=== PATIENT | female | born 1935 | race Caucasian/White ===

== ENCOUNTER → 2016-12-25 | Outpatient (CLI) | payer BC ==
[~2016-12-25] MED LIST: ACET-1256 PO; ASPI81TA28 PO; ATOR-24 PO; CALC500C70 PO; CLB/200 PO; CLTP PO; LOSA100T33; LVS125 PO; METAMUCIL PO; MIRA100T PO; MULT-506 PO; PANT40TA PO; PSYL0.524 PO; TRAM-10 PO; TRIA0.1C20 TOP; ZNTT/150 PO
--- NOTE | 2016-12-25 12:09 | DIAGNOSTIC IMAGING REPORT ---
UPPER GI SERIES AND BARIUM SWALLOW CLINICAL HISTORY: Epigastric pain, nausea and vomiting. Reflux. COMPARISON STUDY: Upper GI series and small bowel follow-through January 17, 2016. FLUOROSCOPY TIME: 2.5 minutes. FINDINGS: 33 fluoroscopic images were obtained. Mild esophageal dysmotility was noted. No esophageal mass or stricture was identified. A 13 mm barium tablet passed into the stomach. Mild gastric thickening is similar to prior exam of January 17, 2016. No reflux was elicited. No hiatal hernia was identified. A diverticulum of the second portion the duodenum was noted. There are cholecystectomy clips. IMPRESSION: 1. Mild esophageal dysmotility. 2. No change in mild gastric fold thickening since exam of January 17, 2016. 3. No esophageal mass or stricture. Electronically signed by: Vimal Robertson M.D. 12/25/2016 12:08 PM Dictated Date/Time: 12/25/2016 12:06 PM
== END | disposition home or self-care (01) ==
LOC: C.RAD 11:01
PROVIDERS: ATTEND Physician Assistant
DX: K21.9 Gastro-esophageal reflux disease without esophagitis (principal); K30 Functional dyspepsia

== ENCOUNTER → 2017-02-26 | Outpatient (CLI) | payer BC ==
[2017-02-26 10:12] LABS: BASO % 0.4 %; BASO ABS # 0.03 K/uL (0-0.2); COMPLETE YES; HEMATOCRIT 43.3 % (37-47); IG% 0.3 %; LYMPH % 21.1 %; LYMPH ABS # 1.68 K/uL (1.2-3.4); MEAN CELL VOLUME 90.2 fL (80-100); MEAN CORPUSCULAR HEMOGLOBIN 30.2 pg (25-34); MEAN CORPUSCULAR HGB CONC 33.5 g/dl (32-36); MEAN PLATELET VOLUME 11.6 fL (7.4-10.4); NEUT % 69.2 %; PLATELET COUNT 250 K/uL (130-400); WHITE BLOOD COUNT 7.97 K/uL (4.8-10.8)
[2017-02-26 10:47] LABS: CALCIUM 9.6 mg/dl (8.5-10.1)
[2017-02-26 10:53] LABS: ALT/SGPT 21 U/L (12-78); AST/SGOT 12 U/L (15-37); BLOOD UREA NITROGEN 18 mg/dl (7-18); BUN/CREATININE RATIO 16.3 (10-20); CARBON DIOXIDE 31 mmol/L (21-32); CHLORIDE 102 mmol/L (98-107); CHOLESTEROL 133 mg/dl (0-200); GLUCOSE 97 mg/dl (70-99); POTASSIUM 3.6 mmol/L (3.5-5.1); SODIUM 140 mmol/L (136-145); TRIGLYCERIDES 136 mg/dl (0-150); VERY LOW DENSITY LIPOPROT CALC 27 mg/dl
[2017-02-26 11:01] LABS: ESTIMATED AVERAGE GLUCOSE 117 mg/dl; HA1C FLAG Normal (Normal)
[2017-02-26 11:04] LABS: CHOLESTEROL/HDL RATIO 2.5; HDL CHOLESTEROL 53 mg/dl; LDL CHOLESTEROL CALCULATED 53 mg/dl
--- NOTE | 2017-03-04 12:18 | CODING QUERY MEDICAL NECESSITY ---
SUPPORTING DIAGNOSIS NEEDED A supporting diagnosis is required for the test/procedure performed on this patient in order for us to be reimbursed by the patient's insurance. Please provide a supporting diagnosis for the following test/procedure listed below next to the test name along with your signature. *If there is no additional diagnosis for this patient that would support the following test/procedure please document that below next to the test/procedure. Test(s)/Procedure(s) that require a supporting diagnosis: * HEMOGLOBIN A1C DIAGNOSIS: Provider Signature: Date: Thank you Toshia Martinez [employer] Once completed, please kindly fax back to [phone] For questions please call [phone]
== END | disposition home or self-care (01) ==
LOC: C.LAB1850 08:57
PROVIDERS: ATTEND Internal Medicine
DX: E78.00 Pure hypercholesterolemia, unspecified (principal); R73.9 Hyperglycemia, unspecified

== ENCOUNTER → 2017-03-08 | Outpatient (CLI) | payer BC ==
[~2017-03-08] MED LIST changes: -ACET-1256 PO; -CLTP PO; -LVS125 PO; -METAMUCIL PO; -TRAM-10 PO
--- NOTE | 2017-03-09 08:02 | MAMMOGRAPHY REPORT ---
BILATERAL DIGITAL SCREENING MAMMOGRAM TOMOSYNTHESIS WITH CAD: 03/08/2017 CLINICAL HISTORY: Asymptomatic. Personal history of breast cancer. TECHNIQUE: Breast tomosynthesis in addition to standard 2D mammography was performed. Current study was also evaluated with a Computer Aided Detection (CAD) system. COMPARISON: Comparison is made to exams dated: 06/19/2016 mammogram, 06/15/2016 mammogram, 06/15/2016 u ltrasound, 03/12/2016 ultrasound, 03/12/2016 mammogram, and 03/05/2016 mammogram - [facility]. BREAST COMPOSITION: The tissue of both breasts is heterogeneously dense, which may obscure small mas ses. FINDINGS: There is expected architectural distortion in the 12:00 posterior right breast, at the sit e of prior lumpectomy. There are diffuse bilateral benign-appearing rodlike, coarse and punctate chapo rocalcifications. A stable ribbon shaped metallic biopsy marker in the 12:00 to 1:00 anterior left b reast. No new suspicious mass, architectural distortion or cluster of microcalcifications is seen. IMPRESSION: ACR BI-RADS CATEGORY 1: NEGATIVE There is no mammographic evidence of malignancy. A 1 year screening mammogram is recommended. The pa tient will receive written notification of the results. Approximately 10% of breast cancers are not detected with mammography. A negative mammographic report should not delay biopsy if a clinically suggestive mass is present. Lidia Ernst M.D. ay/:03/08/2017 16:53:[address] Clerk: Jessica MENEZES)([place]), [facility] letter sent: Normal 1/2 BI-RADS Code: ACR BI-RADS Category 1: Negative
== END ==
LOC: C.MAMM 10:29
PROVIDERS: ATTEND Obstetrics & Gynecology
DX: Z12.31 Encounter for screening mammogram for malignant neoplasm of breast (principal); Z85.3 Personal history of malignant neoplasm of breast

== ENCOUNTER → 2017-03-11 | Day surgery (SDC) | payer BC ==
[2017-03-04 14:02] VITALS: BMI 37.0
[~2017-03-11] VITALS: Ht 162.6 cm; Wt 99.5 kg
[~2017-03-11] MED LIST changes: +LIDOCAINE HCL 2% 2 ML VIAL (20MG/ML) ONE; +PROPOFOL IV EMULSION 10 MG/ML 20 ML VIAL IV ONE; +SODIUM CHLORIDE 0.9% 500ML 500 ML IV ONE
[2017-03-11 14:26] VITALS: Ht 162.6 cm; Wt 99.5 kg
--- NOTE | 2017-03-11 14:49 | Endo History and Physical ---
History & Physical Date of Service: Mar 11, 2017. Chief Complaint: DYSPHAGIA Referring Physician: DR Germania MCCLELLAN History of Present Illness 81 yo CF who presents for EGD secondary to dysphagia. Past Medical History Arthritis, Reflux, Cancer, High Cholesterol, Hypertension Past Surgical History Hx Cardiac Surgery: No Hx Internal Defibrillator: No Hx Pacemaker: No Hx Abdominal Surgery: Yes (D&C AND HYSTEROSCOPY, TUBAL LIGATION, ROSA) Hx of Implantable Prosthesis: No Hx Post-Op Nausea and Vomiting: Yes Hx Cancer Surgery: Yes (R BREAST LUMPECTOMY, KAYODE BSO AND LYMPH NODE REMOVAL) Hx Thoracic Surgery: No Hx Orthopedic: Yes (RT/LEFT TKA, LAMINECTOMY AND FACETECTOMY, RT/LEFT CTR) Hx Urinary Tract Surgery: Yes (ANAL FISTULA REPAIR) Family History None, Esophogeal CA Social History Smoking Status: Never Smoker Hx Substance Use: No Hx Alcohol Use: No Allergies Coded Allergies: Omeprazole (Verified Allergy, Intermediate, RASH , 03/11/17) Adhesives (Verified Allergy, Unknown, RASH, 03/11/17) Erythromycin (Unverified Allergy, Unknown, PER PCP NOTE- ?REACTION, ) Penicillins (Verified Allergy, Unknown, RASH / LYMPHADENOPATHY, 03/11/17) Current Medications Reported Home Medications Medications Dose Route/Sig Max Daily Dose Days Date Category Dose Instructions Metamucil (Psyllium) 0.52 Gm Cap 2 Cap PO DAILY AT LUNCH 03/04/17 Reported Zantac (Ranitidine HCl) 150 Mg Tab 150 Mg PO HS 03/04/17 Reported CeleBREX (Celecoxib) 200 Mg Cap 200 Mg PO BID 03/04/17 Reported Aristocort 0.1% (Triamcinolone Acetonide) Cr 1 Dose TOP PRN 01/15/16 Reported Myrbetriq Er (Mirabegron) 25 Mg Tab 25 Mg PO QPM 11/14/15 Reported Aspirin Ec (Aspirin) 81 Mg Tab 81 Mg PO QAM 10/14/15 Reported Multivitamin (Multivitamins) Tab 1 Tab PO QAM 03/21/14 Reported Losartan Potassium/Hydroc (Losartan Potassium & Hydrochlo) 1 Tab Tab 1 Tab QAM 12/11/12 Reported DOSE OF 100/25MG Protonix (Pantoprazole Sodium) 40 Mg Tab 40 Mg PO BID 10/22/08 Reported Lipitor (Atorvastatin Calcium) 40 Mg Tab 40 Mg PO QPM 10/22/08 Reported Vital Signs Weight (Kilograms): 99.55 Height (Feet): 5 Height (Inches): 4 Date Time Temp Pulse Resp B/P (MAP) Pulse Ox O2 Delivery O2 Flow Rate FiO2 03/11/17 14:34 36.9 77 20 180/59 (99) 94 Room Air Physical Exam General Appearance: WD/WN, no apparent distress Respiratory/Chest: Auscultation: breath sounds normal Cardiovascular: Heart Auscultation: RRR Abdomen: Bowel Sounds: normal Inspection & Palpation: soft, non-distended, no tenderness, guarding & rebound Assessment and Plan Assessment: 81 yo CF who presents for EGD secondary to dysphagia. Plan: Proceed with EGD.
--- NOTE | 2017-03-11 15:38 | GI REPORT ---
Procedure Date: 03/11/2017 3:14 PM Procedure: Upper GI endoscopy Indications: Dysphagia Medicines: Monitored Anesthesia Care Complications: No immediate complications. Estimated Blood Loss: Estimated blood loss: none. Procedure: Pre-Anesthesia Assessment: - Prior to the procedure, a History and Physical was performed, and patient medications and allergies were reviewed. The patient's tolerance of previous anesthesia was also reviewed. The risks and benefits of the procedure and the sedation options and risks were discussed with the patient. All questions were answered, and informed consent was obtained. Prior Anticoagulants: The patient has taken aspirin, last dose was 1 day prior to procedure. ASA Grade Assessment: II - A patient with mild systemic disease. After reviewing the risks and benefits, the patient was deemed in satisfactory condition to undergo the procedure. After obtaining informed consent, the endoscope was passed under direct vision. Throughout the procedure, the patient's blood pressure, pulse, and oxygen saturations were monitored continuously. The scope was introduced through the mouth, and advanced to the second part of duodenum. The upper GI endoscopy was accomplished without difficulty. The patient tolerated the procedure well. Findings: One mild benign-appearing, intrinsic stenosis was found. This measured 1.6 cm (inner diameter) x less than one cm (in length) and was traversed. A TTS dilator was passed through the scope. Dilation with an 18-19-20 mm balloon (to a maximum balloon size of 20 mm) dilator was performed. The dilation site was examined following endoscope reinsertion and showed no change. A small hiatus hernia was present. The examined duodenum was normal. Impression: - Benign-appearing esophageal stenosis. Dilated. - Small hiatus hernia. - Normal examined duodenum. - No specimens collected. Recommendation: - Resume previous diet. - Continue present medications. - Repeat the upper endoscopy PRN for retreatment. - Return to primary care physician as previously scheduled. Jean-Pierre Alexandra DO 03/11/2017 3:38:10 PM This report has been signed electronically. Note Initiated On: 03/11/2017 3:14 PM I attest to the content of the Intraoperative Record and orders documented therein, exceptions below
--- NOTE | 2017-03-11 15:51 | Anesthesiology Progress Note ---
Anesthesia Post Op Note Date & Time Mar 11, 2017 at 15:50 Vital Signs Pain Intensity: 2 Vital Signs Past 12 Hours Date Time Temp Pulse Resp B/P (MAP) Pulse Ox O2 Delivery O2 Flow Rate FiO2 03/11/17 15:42 69 16 164/61 (95) 96 Room Air 03/11/17 15:27 72 16 133/67 (89) 95 Room Air 03/11/17 14:34 36.9 77 20 180/59 (99) 94 Room Air Notes Mental Status: alert / awake / arousable, participated in evaluation Pt Amnestic to Procedure: Yes Nausea / Vomiting: adequately controlled Pain: adequately controlled Airway Patency, RR, SpO2: stable & adequate BP & HR: stable & adequate Hydration State: stable & adequate Anesthetic Complications: no major complications apparent
--- NOTE | 2017-03-11 15:56 | Discharge Instructions ---
Endoscopy Patient Instructions Date / Procedure(s) Performed Mar 11, 2017. EGD Allergy Information Coded Allergies: Omeprazole (Verified Allergy, Intermediate, RASH , 03/11/17) Adhesives (Verified Allergy, Unknown, RASH, 03/11/17) Erythromycin (Unverified Allergy, Unknown, PER PCP NOTE- ?REACTION, ) Penicillins (Verified Allergy, Unknown, RASH / LYMPHADENOPATHY, 03/11/17) Discharge Date / Findings Mar 11, 2017. Esophageal stricture s/p dilation Hiatal hernia Medication Instructions OK to resume all medications today as prescribed. Reported Home Medications Medications Dose Route/Sig Max Daily Dose Days Date Category Dose Instructions Metamucil (Psyllium) 0.52 Gm Cap 2 Cap PO DAILY AT LUNCH 03/04/17 Reported Zantac (Ranitidine HCl) 150 Mg Tab 150 Mg PO HS 03/04/17 Reported CeleBREX (Celecoxib) 200 Mg Cap 200 Mg PO BID 03/04/17 Reported Aristocort 0.1% (Triamcinolone Acetonide) Cr 1 Dose TOP PRN 01/15/16 Reported Myrbetriq Er (Mirabegron) 25 Mg Tab 25 Mg PO QPM 11/14/15 Reported Aspirin Ec (Aspirin) 81 Mg Tab 81 Mg PO QAM 10/14/15 Reported Multivitamin (Multivitamins) Tab 1 Tab PO QAM 03/21/14 Reported Losartan Potassium/Hydroc (Losartan Potassium & Hydrochlo) 1 Tab Tab 1 Tab QAM 12/11/12 Reported DOSE OF 100/25MG Protonix (Pantoprazole Sodium) 40 Mg Tab 40 Mg PO BID 10/22/08 Reported Lipitor (Atorvastatin Calcium) 40 Mg Tab 40 Mg PO QPM 10/22/08 Reported Provider Instructions Activity Restrictions - No exercising or heavy lifting for 24 hours. - Do not drink alcohol the day of the procedure. - Do not drive a car or operate machinery until the day after the procedure. - Do not make any important decisions or sign important papers in 24 hours after the procedure. Following Day: - Return to full activity which may include returning to work/school. Diet Start your diet with liquids and light foods (jello, soup, juice, toast). Then eat your usual diet if not nauseated. Treatment For Common After Affects For mild abdominal pain, bloating, or excessive gas: - Rest - Eat lightly - Lie on right side Follow-Up Information Follow-up with DR Germania MCCLELLAN as scheduled Anesthesia Information What You Should Know You have had a procedure that required some medicine to reduce anxiety and discomfort. This treatment is called moderate sedation. After receiving the treatment, you may be sleepy, but you will be able to breathe on your own. The effects of the treatment may last for several hours. Follow these instructions along with Activity/Diet recommendations noted above: * Do NOT do anything where dizziness or clumsiness would be dangerous. * Rest quietly at home today, then you can be up and about tomorrow. * Have a responsible person stay with you the rest of today. * You may have had an I.V. today. If so, you may take the dressing off later today. Recommendations Call your doctor if: * Trouble breathing * Continuous vomiting for more than 24 hours * Temperature above 101 degrees * Severe abdominal pain or bloating * Pain not relieved by pain medicine ordered * There is increased drainage or redness from any incision * A large amount of rectal bleeding greater than 2-3 tablespoons. (If you had a polyp/s removed or have hemorrhoids, a small amount of blood - from the rectum is to be expected.) * You have any unanswered questions or concerns. IN THE EVENT OF A SERIOUS EMERGENCY, GO TO THE NEAREST EMERGENCY ROOM Your discharge instructions were prepared by provider Jean-Pierre Alexandra. Patient Instructions Signature Page Karine Aranda Patient (or Guardian) Signature/Date: I have read and understand the instructions given to me by my caregivers. Caregiver/RN/Doctor Signature/Date: The above-named patient and/or guardian has received patient instructions on this date. + Original Patient Signature Page (only) stays with chart. Please make copy for patient.
[2017-03-11 15:57] VITALS: BP 145/65; PULSE 67; O2SAT 97
== END | disposition home or self-care (01) ==
LOC: C.GI 14:15
PROVIDERS: ATTEND Internal Medicine
DX: K22.2 Esophageal obstruction (principal); K44.9 Diaphragmatic hernia without obstruction or gangrene; K21.9 Gastro-esophageal reflux disease without esophagitis; I10 Essential (primary) hypertension; E78.00 Pure hypercholesterolemia, unspecified; Z80.0 Family history of malignant neoplasm of digestive organs; Z79.82 Long term (current) use of aspirin; Z79.899 Other long term (current) drug therapy

== ENCOUNTER → 2017-03-31 | Outpatient (CLI) | payer BC ==
[~2017-03-31] MED LIST changes: -LIDOCAINE HCL 2% 2 ML VIAL (20MG/ML) ONE; +LOSA100T26; -LOSA100T33; -PROPOFOL IV EMULSION 10 MG/ML 20 ML VIAL IV ONE; -SODIUM CHLORIDE 0.9% 500ML 500 ML IV ONE
--- NOTE | 2017-03-31 11:54 | DIAGNOSTIC IMAGING REPORT ---
LUMBAR SPINE W/O CONTRAST CLINICAL HISTORY: 81 year-old Female presenting with CERVICAL DISORDER,CHRONIC NECK PAIN, status post lumbar surgery. TECHNIQUE: Multisequence, multiplanar MR imaging of the lumbar spine was performed without the use of intravenous contrast. COMPARISON: 11/25/2015. FINDINGS: There has been interval laminectomies of L3-4. 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 Mild vertebral body height loss of L4. T1 hyperintense, T2 hyperintense round lesion in the L5 vertebral body indicative of benign hemangioma. Additionally, T2 hyperintense, T1 hypointense bone marrow signal intensity changes of the endplates at L3-4 (Modic type I), new since 2016. Intervertebral disc height loss most severely at L4-5 and to a lesser extent at L3-4, unchanged. 7 mm of grade 1 anterolisthesis of L3 on L4. This has progressed since the prior exam in 2015. T12-L1: Normal. L1-2: Normal. L2-3: Disc bulge with left greater than right eccentric mass effect on the neural foramina. In combination with mild thickening of the ligamentum flavum, mild bilateral neural foraminal narrowing results. Only mild effacement of the ventral thecal sac noted. L3-4: Anterolisthesis of L3 on L4 and resultant disc bulge has progressed since the prior exam. Significant facet hypertrophy. Persistent near complete effacement of the CSF at this level. The buckled appearance of the cauda equina is not significantly changed from the prior exam. Interval decompression of the posterior spinal canal at this level although the thecal sac is not expanded. There is also severe bilateral neural foraminal narrowing impacting the exiting L3 nerve roots. L4-5: Mild disc bulge with facet hypertrophy results in moderate bilateral neural foraminal narrowing impacting the exiting L4 nerve roots. L5-S1: Mild disc bulge and facet hypertrophy cause mild bilateral neural foraminal narrowing. The spinal cord ends in good position at the inferior endplate of L1. As mentioned, the cauda equina has a buckled appearance, which would raise concern for impingement although posterior decompression has been performed in the interval. Paraspinal soft tissues are normal. Surgical scar in the posterior soft tissues of the lumbar region. No associated fluid collection. IMPRESSION: 1. Post surgical changes of L3-4 laminectomies. Progression of anterolisthesis of L3 on L4 with associated degenerative changes. The stenotic appearance of the spinal canal at this level has not significantly changed with persistent buckling of the cauda equina despite decompression. 2. Severe bilateral neural foraminal narrowing at L3-4 and moderate neural foraminal narrowing at L4-5 with additional levels of neural foraminal narrowing as described above. Electronically signed by: Janes Hendrickson 03/31/2017 11:53 AM Dictated Date/Time: 03/31/2017 11:28 AM
== END | disposition home or self-care (01) ==
LOC: C.MRI 09:50
PROVIDERS: ATTEND Neurological Surgery
DX: M54.5 Low back pain (principal); M43.16 Spondylolisthesis, lumbar region

== ENCOUNTER → 2017-09-01 | Outpatient (CLI) | payer BC ==
[~2017-09-01] MED LIST changes: -LOSA100T26; +LOSA100T33
[2017-09-01 09:31] LABS: BASO % 0.2 %; BASO ABS # 0.02 K/uL (0-0.2); COMPLETE YES; EOS % 2.2 %; HEMATOCRIT 42.3 % (37-47); IG% 0.2 %; MEAN CELL VOLUME 89.6 fL (80-100); MEAN CORPUSCULAR HEMOGLOBIN 30.1 pg (25-34); MEAN CORPUSCULAR HGB CONC 33.6 g/dl (32-36); MONO % 7.3 %; NEUT % 69.1 %; PLATELET COUNT 247 K/uL (130-400); RED BLOOD COUNT 4.72 M/uL (4.2-5.4); WHITE BLOOD COUNT 9.03 K/uL (4.8-10.8)
[2017-09-01 09:47] LABS: ESTIMATED AVERAGE GLUCOSE 123 mg/dl; HA1C FLAG Normal (Normal)
[2017-09-01 09:58] LABS: ALT/SGPT 21 U/L (12-78); AST/SGOT 14 U/L (15-37); BLOOD UREA NITROGEN 16 mg/dl (7-18); BUN/CREATININE RATIO 13.9 (10-20); CALCIUM 9.2 mg/dl (8.5-10.1); CARBON DIOXIDE 30 mmol/L (21-32); CHLORIDE 103 mmol/L (98-107); CHOLESTEROL 126 mg/dl (0-200); CREATININE 1.14 mg/dl (0.60-1.20); GLUCOSE 104 mg/dl (70-99); POTASSIUM 3.7 mmol/L (3.5-5.1); SODIUM 140 mmol/L (136-145)
[2017-09-01 10:08] LABS: CHOLESTEROL/HDL RATIO 2.3; HDL CHOLESTEROL 56 mg/dl; LDL CHOLESTEROL CALCULATED 34 mg/dl; TRIGLYCERIDES 178 mg/dl (0-150); VERY LOW DENSITY LIPOPROT CALC 36 mg/dl
== END | disposition home or self-care (01) ==
LOC: C.LAB1850 08:46
PROVIDERS: ATTEND Internal Medicine
DX: E78.00 Pure hypercholesterolemia, unspecified (principal)

== ENCOUNTER 2018-01-06 08:55 | Emergency (ER) | payer BC ==
[~2018-01-06] VITALS: Ht 162.6 cm; Wt 96.0 kg
[~2018-01-06 08:55] MED LIST changes: -ATOR-24 PO; -PSYL0.524 PO; +RANI150T85 PO; -ZNTT/150 PO
[2018-01-06 08:56] VITALS: TEMP 36.5; Ht 162.6 cm; Wt 96.0 kg
[2018-01-06] MEDS ORDERED: ESCI10TA17 PO (09:12)
[2018-01-06 10:01] LABS: BASO % 0.2 %; BASO ABS # 0.02 K/uL (0-0.2); EOS % 0.5 %; EOS ABS # 0.05 K/uL (0-0.5); HEMOGLOBIN 14.1 g/dL (12.0-16.0); IG# 0.02 K/uL (0.00-0.02); LYMPH % 9.7 %; LYMPH ABS # 0.89 K/uL (1.2-3.4); MEAN CELL VOLUME 87.8 fL (80-100); MEAN CORPUSCULAR HEMOGLOBIN 30.2 pg (25-34); MEAN CORPUSCULAR HGB CONC 34.4 g/dl (32-36); MEAN PLATELET VOLUME 10.5 fL (7.4-10.4); MONO % 5.9 %; MONO ABS # 0.54 K/uL (0.11-0.59); NEUT % 83.5 %; NEUT ABS # 7.68 K/uL (1.4-6.5); PLATELET COUNT 237 K/uL (130-400); RED CELL DISTRIBUTION WIDTH CV 12.9 % (11.5-14.5); RED CELL DISTRIBUTION WIDTH SD 41.1 fL (36.4-46.3)
[2018-01-06 10:17] LABS: ALBUMIN 3.5 gm/dl (3.4-5.0); CALCIUM 9.4 mg/dl (8.5-10.1); CREATININE 1.36 mg/dl (0.60-1.20); POTASSIUM 4.1 mmol/L (3.5-5.1)
[2018-01-06 10:20] LABS: TOTAL PROTEIN 7.3 gm/dl (6.4-8.2)
[2018-01-06 11:06] VITALS: BP 171/70; PULSE 62; O2SAT 95
[2018-01-06] MEDS ORDERED: ATOR-24 PO (11:24)
[2018-01-06] MEDS ORDERED: PSYL0.524 PO (14:01)
--- NOTE | 2018-01-06 16:04 | EMERGENCY ROOM VISIT NOTE ---
History Report prepared by Amnada: Chad Mauro Under the Supervision of: Dr. Devon Powell D.O. First contact with patient: 09:34 Chief Complaint: URINARY SYMPTOMS Stated Complaint: UNABLE TO URINATE History of Present Illness The patient is an 82 year old female who presents to the Emergency Room with complaints of constant urinary retention that the patient noticed through the night last night. The patient states that she is normally incontinent of her urine and will usually go through 1-2 large pads at night. The patient states that when she woke up this morning her pad was dry. She attempted to use the restroom but could only "push out a couple of drops." She denies any burning with urinating or abdominal pain recently. She also denies any nausea or vomiting. The patient did make note that her stools were a little loose this morning, so she took an Imodium. She denies any other change in vision, fevers, chest pain, shortness of breath, and melena. Source of History: patient Onset: Last night Position: other () Quality: other (Urinary Retention) Timing: constant Associated Symptoms: + vomiting, No nausea, No abdominal pain Review of Systems See HPI for pertinent positives & negatives. A total of 10 systems reviewed and were otherwise negative. Past Medical & Surgical Medical Problems: (1) Lumbar stenosis with neurogenic claudication Family History Omitted Secondary to Age. Social History Smoking Status: Never Smoker Marital Status: Housing Status: lives with significant other Occupation Status: retired Current/Historical Medications Scheduled Aspirin (Aspirin Ec), 81 MG PO QAM Atorvastatin (Lipitor), 40 MG PO QPM Calcium/Vitamin D (Os-Brijesh 500 Plus D), 1 TAB PO QAM Celecoxib (CeleBREX), 200 MG PO BID Escitalopram (Lexapro), 10 MG PO DAILY Hctz/Losartan (Hyzaar 12.5MG/100MG), 1 TAB QAM Multivitamin (Multivitamin), 1 TAB PO QAM Pantoprazole (Protonix), 40 MG PO BID Psyllium (Metamucil), 2 CAP PO DAILY AT LUNCH Ranitidine (Zantac), 150 MG PO HS Triamcinolone Acet 0.1% (Aristocort 0.1%), 1 DOSE TOP PRN Allergies Coded Allergies: Omeprazole (Verified Allergy, Intermediate, RASH , 03/11/17) Adhesives (Verified Allergy, Unknown, RASH, 03/11/17) Erythromycin (Unverified Allergy, Unknown, PER PCP NOTE- ?REACTION, ) Penicillins (Verified Allergy, Unknown, RASH / LYMPHADENOPATHY, 03/11/17) Physical Exam Vital Signs Date Time Temp Pulse Resp B/P (MAP) Pulse Ox O2 Delivery O2 Flow Rate FiO2 01/06/18 11:06 62 18 171/70 95 Room Air 01/06/18 08:56 36.5 70 17 206/82 94 Room Air Physical Exam GENERAL: Sitting up in bed, alert, well appearing, well nourished, no distress, non-toxic EYE EXAM: normal conjunctiva. OROPHARYNX: no exudate, no erythema, lips, buccal mucosa, and tongue normal and mucous membranes are moist NECK: supple, no nuchal rigidity, no adenopathy, non-tender LUNGS: Clear to auscultation. Normal chest wall mechanics HEART: no murmurs, S1 normal and S2 normal ABDOMEN: abdomen soft, non-tender, normo-active bowel sounds, no masses, no rebound or guarding. BACK: Back is symmetrical on inspection and there is no deformity, no midline tenderness, no CVA tenderness. SKIN: no rashes and no bruising UPPER EXTREMITIES: upper extremities are grossly normal. LOWER EXTREMITIES: No pitting edema. NEURO EXAM: Normal sensorium, cranial nerves II-XII grossly intact, normal speech, no gross weakness of arms, no gross weakness of legs. Medical Decision & Procedures Laboratory Results 01/06/18 09:50 Red Blood Count 4.67, Mean Corpuscular Volume 87.8, Mean Corpuscular Hemoglobin 30.2, Mean Corpuscular Hemoglobin Concent 34.4, Mean Platelet Volume 10.5, Neutrophils (%) (Auto) 83.5, Lymphocytes (%) (Auto) 9.7, Monocytes (%) (Auto) 5.9, Eosinophils (%) (Auto) 0.5, Basophils (%) (Auto) 0.2, Neutrophils # (Auto) 7.68, Lymphocytes # (Auto) 0.89, Monocytes # (Auto) 0.54, Eosinophils # (Auto) 0.05, Basophils # (Auto) 0.02 01/06/18 09:50 Test 01/06/18 09:50 01/06/18 10:44 White Blood Count 9.20 K/uL (4.8-10.8) Red Blood Count 4.67 M/uL (4.2-5.4) Hemoglobin 14.1 g/dL (12.0-16.0) Hematocrit 41.0 % (37-47) Mean Corpuscular Volume 87.8 fL (80-100) Mean Corpuscular Hemoglobin 30.2 pg (25-34) Mean Corpuscular Hemoglobin Concent 34.4 g/dl (32-36) Platelet Count 237 K/uL (130-400) Mean Platelet Volume 10.5 fL (7.4-10.4) Neutrophils (%) (Auto) 83.5 % Lymphocytes (%) (Auto) 9.7 % Monocytes (%) (Auto) 5.9 % Eosinophils (%) (Auto) 0.5 % Basophils (%) (Auto) 0.2 % Neutrophils # (Auto) 7.68 K/uL (1.4-6.5) Lymphocytes # (Auto) 0.89 K/uL (1.2-3.4) Monocytes # (Auto) 0.54 K/uL (0.11-0.59) Eosinophils # (Auto) 0.05 K/uL (0-0.5) Basophils # (Auto) 0.02 K/uL (0-0.2) RDW Standard Deviation 41.1 fL (36.4-46.3) RDW Coefficient of Variation 12.9 % (11.5-14.5) Immature Granulocyte % (Auto) 0.2 % Immature Granulocyte # (Auto) 0.02 K/uL (0.00-0.02) Anion Gap 5.0 mmol/L (3-11) Est Creatinine Clear Calc Drug Dose 34.6 ml/min Estimated GFR () 41.3 Estimated GFR (Non- 35.6 BUN/Creatinine Ratio 13.3 (10-20) Calcium Level 9.4 mg/dl (8.5-10.1) Total Bilirubin 0.8 mg/dl (0.2-1) Direct Bilirubin 0.2 mg/dl (0-0.2) Aspartate Amino Transf (AST/SGOT) 14 U/L (15-37) Alanine Aminotransferase (ALT/SGPT) 17 U/L (12-78) Alkaline Phosphatase 128 U/L (45-117) Total Protein 7.3 gm/dl (6.4-8.2) Albumin 3.5 gm/dl (3.4-5.0) Lipase 75 U/L (73-393) Urine Color YELLOW Urine Appearance CLEAR (CLEAR) Urine pH 8.0 (4.5-7.5) Urine Specific [place] 1.011 (1.000-1.030) Urine Protein NEG (NEG) Urine Glucose (UA) NEG (NEG) Urine Ketones NEG (NEG) Urine Occult Blood NEG (NEG) Urine Nitrite NEG (NEG) Urine Bilirubin NEG (NEG) Urine Urobilinogen NEG (NEG) Urine Leukocyte Esterase NEG (NEG) Urine WBC (Auto) 0 /hpf (0-5) Urine RBC (Auto) 0-4 /hpf (0-4) Urine Hyaline Casts (Auto) 0 /lpf (0-5) Urine Epithelial Cells (Auto) 0-5 /lpf (0-5) Urine Bacteria (Auto) NEG (NEG) Laboratory results per my review. ED Course ED COURSE: Vital signs were reviewed and showed hypertensive vitals. The patients medical record was reviewed The above diagnostic studies were performed and reviewed. ED treatments and interventions as stated above. 0938: The patient was evaluated in room B9. A complete history and physical examination was performed. 1122: Upon reevaluation, the patient is resting in bed. Straight cath drained 200 mL of urine. I discussed my findings with the patient and she understands and agrees with the treatment plan. Based on the patients age, coexisting illnesses, exam and lab findings the decision to treat as an outpatient was made. The patient remained stable while under my care. The patient appeared well at the time of discharge. Medical Decision Differential diagnoses includes but is not limited to gastritis, peptic ulcer disease, GERD, gallbladder disease, pancreatitis, small bowel obstruction, acute coronary syndrome, pericarditis, ischemic bowel, irritable bowel disease, irritable bowel syndrome, appendicitis, diverticulitis, malignancy, hernia, urinary tract infection, torsion, perforation, trauma, infectious. Patient is an 82-year-old female who presents to ER as she woke up this morning at 3 AM and normally is incontinent of urine and her pad that she will was completely dry. She was afraid that she is retaining urine. She had no other real complaints with the exception of faint headache. CBC along with BMP, LFTs , bilirubin lipase is unremarkable. UA was negative. Bladder scan showed 200 mL's and a cath confirmed this. Patient had no complaints was discharged follow -up PCP as an outpatient. Discussed with Pt concerning signs and symptoms to watch out for. Pt was instructed to follow up with their PCP and discussed with the patient their option to return to the ED at anytime for persistent or worsening symptoms. The appropriate anticipatory guidance and out-patient management, including indications for return to the emergency department, were explained at length to the patient and understood. Medication Reconcilliation Current Medication List: was personally reviewed by me Blood Pressure Screening Patient's blood pressure: Elevated blood pressure Blood pressure disposition: Referred to PCP Impression Primary Impression: Urinary retention Scribe Attestation The scribe's documentation has been prepared under my direction and personally reviewed by me in its entirety. I confirm that the note above accurately reflects all work, treatment, procedures, and medical decision making performed by me. Departure Information Dispostion Home / Self-Care Referrals Vic Marina M.D. (PCP) Forms HOME CARE DOCUMENTATION FORM, IMPORTANT VISIT INFORMATION Patient Instructions My [facility] Additional Instructions Please follow up with your primary care doctor with in the next 24 hours. Any worsening of your symptoms, please return to the ED immediately. This includes any fevers greater than 100.4, worsening pain, chest pain, shortness breath, persistent nausea, vomiting, unable to eat or drink, or any other concerning signs or symptoms from your standpoint. Your blood pressure was elevated, please have this followed up by your primary care doctor.
== END 2018-01-06 11:50 | disposition home or self-care (01) ==
LOC: C.EDB 08:57
DX: R33.9 Retention of urine, unspecified (principal); R11.10 Vomiting, unspecified; Z79.899 Other long term (current) drug therapy; Z88.0 Allergy status to penicillin; Z91.048 Other nonmedicinal substance allergy status; Z88.8 Allergy status to other drugs, medicaments and biological substances

== ENCOUNTER 2018-02-07 23:34 | Emergency (ER) | payer BC ==
[~2018-02-07] VITALS: Ht 162.6 cm; Wt 97.0 kg
[~2018-02-07 23:34] MED LIST changes: +ATOR-24 PO; +ESCI10TA17 PO; -MIRA100T PO; +PSYL0.524 PO
[2018-02-07 23:35] VITALS: TEMP 36.6; Ht 162.6 cm; Wt 97.0 kg
[2018-02-07] MEDS ORDERED: SODIUM CHLORIDE 0.9% 500ML 500 ML IV STA (23:45)
[2018-02-07] MEDS ORDERED: ONDANSETRON INJ 2 MG/ML 2 ML VIAL IV STA (23:45)
--- NOTE | 2018-02-07 23:55 | EMERGENCY ROOM VISIT NOTE ---
History Report prepared by Amanda: Royal Cano Under the Supervision of: Dr. Scott Guillen M.D. First contact with patient: 23:37 Chief Complaint: ABDOMINAL PAIN Stated Complaint: STOMACH PROBLEMS,MOVED TO THROAT AREA History of Present Illness The patient is a 82 year old female who presents to the Emergency Room with complaints of intermittent abdominal pain that began yesterday. She rates her pain as a 5/10 in severity. The patient states she had been having loose stool, which caused her to take Imodium yesterday morning. She states that later in the afternoon, she then developed pain across her abdomen. The patient states that her abdominal pain has been intermittent since. The patient states that when she woke up this morning she felt panicked and became short of breath. She reports that she has also been experiencing intermittent episodes of diaphoresis. The patient states that she was able to eat lunch today, but denies eating dinner because she has been nauseous. The patient denies urinary burning, urinary frequency, blood in stool, lower extremity swelling, rashes, falls, injuries. The patient reports a history of endometrial cancer and cholecystectomy. She denies a history of an appendectomy and a bowel obstruction. The patient states that she takes Aspirin. Source of History: patient Onset: yesterday Position: abdomen Symptom Intensity: 5/10 Timing: intermittent Associated Symptoms: + diaphoresis, + SOB, + nausea, No melena, No hematochezia, No urinary symptoms, No rash Note: Associated symptoms: loose stool Denies: lower extremity swelling. Review of Systems See HPI for pertinent positives & negatives. A total of 10 systems reviewed and were otherwise negative. Past Medical & Surgical Medical Problems: (1) Lumbar stenosis with neurogenic claudication Family History Patient reports no known family medical history. Social History Smoking Status: Never Smoker Marital Status: Housing Status: lives with significant other Occupation Status: retired Current/Historical Medications Scheduled Aspirin (Aspirin Ec), 81 MG PO QAM Atorvastatin (Lipitor), 40 MG PO QPM Calcium/Vitamin D (Os-Brijesh 500 Plus D), 1 TAB PO QAM Celecoxib (CeleBREX), 200 MG PO BID Hctz/Losartan (Hyzaar 12.5MG/100MG), 1 TAB QAM Multivitamin (Multivitamin), 1 TAB PO QAM Pantoprazole (Protonix), 40 MG PO BID Ranitidine (Zantac), 150 MG PO HS Allergies Coded Allergies: Omeprazole (Verified Allergy, Intermediate, RASH , 02/08/18) Adhesives (Verified Allergy, Unknown, RASH, 02/08/18) Erythromycin (Unverified Allergy, Unknown, PER PCP NOTE- ?REACTION, ) Penicillins (Verified Allergy, Unknown, RASH / LYMPHADENOPATHY, 02/08/18) Physical Exam Vital Signs Date Time Temp Pulse Resp B/P (MAP) Pulse Ox O2 Delivery O2 Flow Rate FiO2 02/08/18 02:05 80 16 188/100 94 02/08/18 01:17 81 20 193/90 94 Room Air 02/07/18 23:35 36.6 97 20 194/83 94 Room Air Physical Exam GENERAL: Patient is dehydrated and in mild distress. EYES: No scleral icterus, unremarkable pupils. ENT: Mucous membranes dry, no nasal congestion. NECK: No masses appreciated, no meningismus, trachea is midline. RESPIRATORY: No dyspnea. Clear to auscultation and equal bilaterally. No wheeze , no rhonchi. CARDIOVASCULAR: Regular rate and rhythm. No murmurs, rubs, gallops appreciated. GASTROINTESTINAL: Abdomen soft, no peritonitis. Diffuse vague tenderness worse over periumbilical area. Hyperactive bowel sounds throughout the left upper quadrant. No masses appreciated. BACK: No midline tenderness, no CVA tenderness EXTREMITIES: Normal motion all extremities, no cyanosis, no edema. NEUROLOGIC: Alert and oriented, no acute motor or sensory deficits, no focal weakness, cranial nerves grossly intact. SKIN: No rash, no jaundice, no diaphoresis. Medical Decision & Procedures ER Provider Diagnostic Interpretation: Stat Rad Radiology results and stated below per my review and radiologist interpretation: CT ABDOMEN AND PELVIS Without Contrast: Colonic diverticulosis without inflammation. No bowel obstruction or wall thickening. Large amount of stool in the rectum. Cholecystectomy and hysterectomy. No evidence for acute appendicitis. No suspicious bony lesions. Radiologist: Scot Dinh MD. Laboratory Results 02/08/18 00:20 Red Blood Count 4.54, Mean Corpuscular Volume 87.2, Mean Corpuscular Hemoglobin 30.4, Mean Corpuscular Hemoglobin Concent 34.8, Mean Platelet Volume 10.5, Neutrophils (%) (Auto) 90.1, Lymphocytes (%) (Auto) 6.6, Monocytes (%) (Auto) 2.9, Eosinophils (%) (Auto) 0.0, Basophils (%) (Auto) 0.1, Neutrophils # (Auto) 9.07, Lymphocytes # (Auto) 0.66, Monocytes # (Auto) 0.29, Eosinophils # (Auto) 0.00, Basophils # (Auto) 0.01 02/08/18 00:20 Test 02/08/18 00:20 02/08/18 01:16 White Blood Count 10.06 K/uL (4.8-10.8) Red Blood Count 4.54 M/uL (4.2-5.4) Hemoglobin 13.8 g/dL (12.0-16.0) Hematocrit 39.6 % (37-47) Mean Corpuscular Volume 87.2 fL (80-100) Mean Corpuscular Hemoglobin 30.4 pg (25-34) Mean Corpuscular Hemoglobin Concent 34.8 g/dl (32-36) Platelet Count 225 K/uL (130-400) Mean Platelet Volume 10.5 fL (7.4-10.4) Neutrophils (%) (Auto) 90.1 % Lymphocytes (%) (Auto) 6.6 % Monocytes (%) (Auto) 2.9 % Eosinophils (%) (Auto) 0.0 % Basophils (%) (Auto) 0.1 % Neutrophils # (Auto) 9.07 K/uL (1.4-6.5) Lymphocytes # (Auto) 0.66 K/uL (1.2-3.4) Monocytes # (Auto) 0.29 K/uL (0.11-0.59) Eosinophils # (Auto) 0.00 K/uL (0-0.5) Basophils # (Auto) 0.01 K/uL (0-0.2) RDW Standard Deviation 40.9 fL (36.4-46.3) RDW Coefficient of Variation 12.7 % (11.5-14.5) Immature Granulocyte % (Auto) 0.3 % Immature Granulocyte # (Auto) 0.03 K/uL (0.00-0.02) Anion Gap 8.0 mmol/L (3-11) Est Creatinine Clear Calc Drug Dose 41.2 ml/min Estimated GFR () 50.6 Estimated GFR (Non- 43.7 BUN/Creatinine Ratio 17.9 (10-20) Calcium Level 9.2 mg/dl (8.5-10.1) Total Bilirubin 0.7 mg/dl (0.2-1) Direct Bilirubin 0.2 mg/dl (0-0.2) Aspartate Amino Transf (AST/SGOT) 15 U/L (15-37) Alanine Aminotransferase (ALT/SGPT) 22 U/L (12-78) Alkaline Phosphatase 124 U/L (45-117) Total Protein 7.5 gm/dl (6.4-8.2) Albumin 3.5 gm/dl (3.4-5.0) Lipase 66 U/L (73-393) Urine Color YELLOW Urine Appearance CLEAR (CLEAR) Urine pH 7.0 (4.5-7.5) Urine Specific [place] 1.013 (1.000-1.030) Urine Protein NEG (NEG) Urine Glucose (UA) NEG (NEG) Urine Ketones NEG (NEG) Urine Occult Blood NEG (NEG) Urine Nitrite NEG (NEG) Urine Bilirubin NEG (NEG) Urine Urobilinogen NEG (NEG) Urine Leukocyte Esterase NEG (NEG) Urine WBC (Auto) 0 /hpf (0-5) Urine RBC (Auto) 0-4 /hpf (0-4) Urine Hyaline Casts (Auto) 0 /lpf (0-5) Urine Epithelial Cells (Auto) 0-5 /lpf (0-5) Urine Bacteria (Auto) NEG (NEG) Laboratory results as reviewed by me. Medications Administered Medications (Trade) Dose Ordered Sig/Sreekanth Route Start Time Stop Time Status Last Admin Dose Admin Sodium Chloride 500 ml @ 999 mls/hr Q31M STAT IV 02/07/18 23:45 02/08/18 00:15 DC 02/08/18 00:08 999 MLS/HR Ondansetron HCl (Zofran Inj) 4 mg NOW STAT IV 02/07/18 23:45 02/07/18 23:47 DC 02/08/18 00:07 4 MG ED Course 2334: The patient was evaluated in room A03. A complete history and physical exam was performed. 0104: I reevaluated the patient and she has no more pain. I offered an enema, but she declines. She believes she will have a large bowel movement in the morning. 0152: I reevaluated the patient and she would like to go home. I discussed the results and treatment plan, which she understands. She is ready for discharge. Medical Decision Differential: Appendicitis, Diverticulitis, PUD/Gastritis, Biliary Pathology, UTI, Pyelonephritis, Renal Colic, Bowel Obstruction, Aortic Pathology, Acute Coronary Syndrome, amongst other pathologies entertained. 82 yr old female with diarrhea yesterday for which she took Imodium and no BM since. Now having waxing/waning abdominal cramping. Symptoms resolved with IV fluids and zofran. She has CT showing large amount stool in rectum. She declines enema at this time stating she would like to see if it passes on it's own. Labs unremarkable, UA clear. We discussed repeat CT with IV con though she states symptoms are gone thus we will avoid doing this at this time. She does not have symptoms of ACS. She looks well, does not have peritonitis, and exam is now benign. She feels comfortable going home and is aware RTED if worsening. Medication Reconcilliation Current Medication List: was personally reviewed by me Blood Pressure Screening Patient's blood pressure: Elevated blood pressure Blood pressure disposition: Referred to PCP Impression Primary Impression: Abdominal pain Additional Impressions: Constipation Hypertension Scribe Attestation The scribe's documentation has been prepared under my direction and personally reviewed by me in its entirety. I confirm that the note above accurately reflects all work, treatment, procedures, and medical decision making performed by me. Departure Information Dispostion Home / Self-Care Referrals Vic Marina M.D. (PCP) Patient Instructions ED Constipation, My [facility] Additional Instructions Return if worsening pain, fevers, vomiting, passing out, difficulty breathing or other concerns. Your blood pressure was elevated during this visit. This is quite common in many people who are being evaluated in the Emergency Department for many reasons. However, it is important that you have your Primary Care Provider recheck your blood pressure and discuss whether treatment will be needed. FDC elevated blood pressure can lead to strokes, heart attacks, kidney failure amongst other medical issues. If you develop severe headaches, chest pain, weakness in arms or legs, or other concerning symptoms call 911. Problem Qualifiers
[2018-02-08 00:32] LABS: BASO % 0.1 %; BASO ABS # 0.01 K/uL (0-0.2); HEMATOCRIT 39.6 % (37-47); HEMOGLOBIN 13.8 g/dL (12.0-16.0); IG# 0.03 K/uL (0.00-0.02); LYMPH % 6.6 %; LYMPH ABS # 0.66 K/uL (1.2-3.4); MEAN CELL VOLUME 87.2 fL (80-100); MEAN CORPUSCULAR HEMOGLOBIN 30.4 pg (25-34); MEAN CORPUSCULAR HGB CONC 34.8 g/dl (32-36); MEAN PLATELET VOLUME 10.5 fL (7.4-10.4); MONO % 2.9 %; MONO ABS # 0.29 K/uL (0.11-0.59); NEUT % 90.1 %; NEUT ABS # 9.07 K/uL (1.4-6.5); PLATELET COUNT 225 K/uL (130-400); RED CELL DISTRIBUTION WIDTH CV 12.7 % (11.5-14.5); RED CELL DISTRIBUTION WIDTH SD 40.9 fL (36.4-46.3); WHITE BLOOD COUNT 10.06 K/uL (4.8-10.8)
[2018-02-08 00:50] LABS: ALBUMIN 3.5 gm/dl (3.4-5.0); CALCIUM 9.2 mg/dl (8.5-10.1); CREATININE 1.15 mg/dl (0.60-1.20); POTASSIUM 3.7 mmol/L (3.5-5.1)
[2018-02-08 00:53] LABS: TOTAL PROTEIN 7.5 gm/dl (6.4-8.2)
[2018-02-08 02:05] VITALS: BP 188/100; PULSE 80; O2SAT 94
--- NOTE | 2018-02-08 07:46 | DIAGNOSTIC IMAGING REPORT ---
ABDOMEN AND PELVIS CT WITHOUT CONTRAST CT DOSE: 1541.26 mGy.cm HISTORY: nausea, obstruction like symptoms. h/o hyster/Selena TECHNIQUE: Multiaxial CT images of the abdomen and pelvis were performed without the use of intravenous and oral contrast according to the standard department stone protocol. A dose lowering technique was utilized adhering to the principles of ALARA. COMPARISON STUDY: None. FINDINGS: The lung bases are clear. No pneumoperitoneum. No pneumatosis. Posterior decompression at L3-L4. Small fat-containing umbilical hernia. Cholecystectomy. The unenhanced liver, spleen, and pancreas are unremarkable. There are few diverticula within the second and third portions of the duodenum. No renal or ureteral stones. No hydronephrosis. The bladder is unremarkable. Hysterectomy. Moderate well-formed stool seen within the rectum. Suboptimal evaluation for bowel pathology due to the lack of intravenous and oral contrast. However, there is no definite bowel wall thickening or obstruction. No retroperitoneal lymphadenopathy. IMPRESSION: 1. No bowel wall thickening or obstruction. 2. Colonic diverticulosis. 3. No renal or ureteral calculi. No hydronephrosis. 4. Moderate well-formed stool within the rectum. Electronically signed by: Saturnino Das M.D. 02/08/2018 7:45 AM Dictated Date/Time: 02/08/2018 7:36 AM
== END 2018-02-08 02:06 | disposition home or self-care (01) ==
LOC: C.EDB 23:35 → C.EDA 02-08 02:06
DX: R10.9 Unspecified abdominal pain (principal); K59.00 Constipation, unspecified; I10 Essential (primary) hypertension; M48.062 Spinal stenosis, lumbar region with neurogenic claudication; Z79.82 Long term (current) use of aspirin; Z79.899 Other long term (current) drug therapy; Z88.0 Allergy status to penicillin; Z91.048 Other nonmedicinal substance allergy status; Z88.8 Allergy status to other drugs, medicaments and biological substances

== ENCOUNTER 2018-02-09 12:41 | Inpatient (IN) | payer BC, OTHER ==
[~2018-02-09] VITALS: Ht 162.6 cm; Wt 101.1 kg
[~2018-02-09 12:41] MED LIST changes: -ESCI10TA17 PO; -PSYL0.524 PO; -TRIA0.1C20 TOP
[2018-02-09] MEDS ORDERED: SODIUM CHLORIDE 0.9% 1000ML 1,000 ML IV STA (12:58)
[2018-02-09] MEDS ORDERED: ONDANSETRON INJ 2 MG/ML 2 ML VIAL IV STA ×2 (12:58→14:39)
[2018-02-09 13:31] LABS: BASO % 0.1 %; BASO ABS # 0.01 K/uL (0-0.2); HEMATOCRIT 40.4 % (37-47); IG# 0.03 K/uL (0.00-0.02); LYMPH % 3.7 %; LYMPH ABS # 0.32 K/uL (1.2-3.4); MEAN CELL VOLUME 87.1 fL (80-100); MEAN CORPUSCULAR HEMOGLOBIN 30.2 pg (25-34); MEAN CORPUSCULAR HGB CONC 34.7 g/dl (32-36); MEAN PLATELET VOLUME 10.8 fL (7.4-10.4); MONO % 1.3 %; MONO ABS # 0.11 K/uL (0.11-0.59); NEUT % 94.5 %; NEUT ABS # 8.08 K/uL (1.4-6.5); PLATELET COUNT 214 K/uL (130-400); RED CELL DISTRIBUTION WIDTH CV 12.8 % (11.5-14.5); RED CELL DISTRIBUTION WIDTH SD 41.3 fL (36.4-46.3); WHITE BLOOD COUNT 8.55 K/uL (4.8-10.8)
[2018-02-09 13:48] LABS: ALBUMIN 3.7 gm/dl (3.4-5.0); CALCIUM 9.3 mg/dl (8.5-10.1); CREATININE 1.19 mg/dl (0.60-1.20); POTASSIUM 3.5 mmol/L (3.5-5.1)
[2018-02-09 13:58] LABS: TOTAL PROTEIN 7.5 gm/dl (6.4-8.2)
[2018-02-09] MEDS ORDERED: OPTIRAY 320 IV PRN (14:30)
[2018-02-09] MEDS ORDERED: NITROGLYCERIN 2% OINTMENT 30GM TUBE EXT SCH (14:45)
--- NOTE | 2018-02-09 15:21 | DIAGNOSTIC IMAGING REPORT ---
(CHEST FOR PE) ANGIO WITH CT DOSE: 548.62 mGycm HISTORY: 82 years-old Female presents with acute atypical chest pain with elevated troponin TECHNIQUE: Multiple CTA images of the chest were obtained after the intravenous administration of 113 ml Optiray 320. Coronal and sagittal MIPS were obtained from the axial data set and were submitted for review. A dose lowering technique was utilized adhering to the principles of ALARA. COMPARISON: CT abdomen and pelvis 02/08/2018. FINDINGS: CTA: Mild multichamber cardiac enlargement. No pericardial effusion. No significant coronary arterial calcifications are identified. Thoracic aorta is normal in course and caliber without aneurysm or dissection. The imaged great vessels appear to be patent. Mild kinking about the right subclavian artery without high-grade stenosis identified. No significant atherosclerotic plaquing of the aorta. The pulmonary arterial tree is opacified to level of the segmental branches and demonstrates no focal filling defects to suggest pulmonary thromboembolic disease. The subsegmental branches are not well-seen secondary to contrast bolus timing and respiratory motion. CT CHEST: Heterogeneous thyroid. Mildly enlarged. No pathologically enlarged lymph nodes about the chest identified. Surgical clips about the right axilla suggest prior right axillary yvette dissection. There is no pneumothorax, pleural effusion or lobar airspace consolidation. Linear subsegmental consolidative opacities about the lung bases suggest areas of scarring/atelectasis. There are no suspicious pulmonary nodules or masses identified. Mild bilateral bronchial wall thickening. Central airways appear clear. Prior cholecystectomy. No acute process of the imaged upper abdomen. Small sliding-type hiatal hernia. Mild thickening about the bilateral adrenal glands appears unchanged. Soft tissues are unremarkable. Calcifications about the bilateral breasts. The bones appear intact. Degenerative changes of the shoulders and spine are noted. IMPRESSION: 1. No acute intrathoracic abnormality identified, specifically no acute aortic pathology or evidence of pulmonary thromboembolic disease. 2. No pathologic adenopathy or lobar airspace consolidation. 3. Small sliding-type hiatal hernia. 4. Prior cholecystectomy. The above report was generated using voice recognition software. It may contain grammatical, syntax or spelling errors. Electronically signed by: Cameron Martinez M.D. 02/09/2018 3:20 PM Dictated Date/Time: 02/09/2018 3:15 PM
[2018-02-09] MEDS ORDERED: LABETALOL HCL IV 5 MG/ML 20ML IV STA ×2 (15:33→16:24)
[2018-02-09] MEDS ORDERED: MAGNESIUM HYDROXIDE SUSP 30 ML UDC PO PRN (16:30)
[2018-02-09] MEDS ORDERED: ACETAMINOPHEN 325 MG TAB PO PRN (16:30)
[2018-02-09] MEDS ORDERED: MoRPHine SULFATE 4 MG/ML 1 ML CARP\\VIAL IV PRN (16:30)
[2018-02-09] MEDS ORDERED: POLYETHYLENE (MIRALAX) 17 GM PACK PO PRN (16:30)
[2018-02-09] MEDS ORDERED: NITROGLYCERIN 0.4 MG SL PER TAB CHARGE SL PRN (16:30)
--- NOTE | 2018-02-09 16:54 | History and Physical ---
History & Physical Date & Time of Service: February 09, 2018 at 16:26 Chief Complaint: Nausea, Abd Pain, Light Headed Primary Care Physician: Vic Marina M.D. History of Present Illness Source: patient, family, clinic records, hospital records Patient is a pleasant 82 y/o female, with PMHx of HTN, HLD, and GERD, who presented to the ED because of persistent abdominal pain and worsening nausea/ dry heaving x2 days. Patient was seen in ED 2 days ago- abdominal CT was unremarkable for acute findings. Early this AM, she started to experience severe nausea and dry heaving. She has been unable to eat/drink or take any of her medications so she proceeded to the ED. Currently, she states her diffuse abdominal pain seems to be improving, but nausea has worsened. She also admits to central/L-sided chest pain. Chest pain improves after dry heaving. She had 3 large BMs yesterday. Denies any diarrhea, blood, or melena. Patient denies any fever, chills, sweats, lightheadedness, dizziness, vision changes, palpitations , edema, SOB, wheezing, cough, vomiting, diarrhea, urinary symptoms, melena, numbness/tingling, weakness, muscle/joint pain, anxiety/depression, active bleeding, or new skin discoloration/changes. Past Medical/Surgical History Medical Problems: HTN HLD GERD osteoarthritis Surgical bilateral knee replacement spine surgery bilateral carpal tunnel surgery cataract cholecystectomy breast lumpectomy thyroid surgery anal fistulotomy tonsillectomy hysterectomy Family History Patient reports no known family medical history. Social History Smoking Status: Never Smoker Marital Status: Occupational Status: retired Immunizations History of Influenza Vaccine: Yes Influenza Vaccine Date: Jul 22, 2008 History of Tetanus Vaccine?: Yes Tetanus Immunization Date: Oct 22, 1997 History of Pneumococcal: Yes Pneumococcal Date: Oct 22, 2003 History of Hepatitis B Vaccine: No Allergies Coded Allergies: Omeprazole (Verified Allergy, Intermediate, RASH , 02/08/18) Adhesives (Verified Allergy, Unknown, RASH, 02/08/18) Erythromycin (Unverified Allergy, Unknown, PER PCP NOTE- ?REACTION, ) Penicillins (Verified Allergy, Unknown, RASH / LYMPHADENOPATHY, 02/08/18) Home Medications Scheduled Aspirin (Aspirin Ec), 81 MG PO QAM Atorvastatin (Lipitor), 40 MG PO QPM Calcium/Vitamin D (Os-Brijesh 500 Plus D), 1 TAB PO QAM Celecoxib (CeleBREX), 200 MG PO BID Hctz/Losartan (Hyzaar 12.5MG/100MG), 1 TAB QAM Multivitamin (Multivitamin), 1 TAB PO QAM Pantoprazole (Protonix), 40 MG PO BID Ranitidine (Zantac), 150 MG PO HS Physical Exam Vital Signs Date Time Temp Pulse Resp B/P (MAP) Pulse Ox O2 Delivery O2 Flow Rate FiO2 02/09/18 16:20 68 20 207/91 98 Nasal Cannula 2.0 02/09/18 15:50 66 20 207/96 98 Nasal Cannula 2.0 02/09/18 15:27 68 20 206/100 91 Room Air 02/09/18 14:18 74 16 208/80 92 Room Air 02/09/18 13:37 71 22 200/96 93 Room Air 02/09/18 13:36 72 02/09/18 12:45 36.7 70 20 200/83 93 Room Air General Appearance: no apparent distress, + obese Head: normocephalic, atraumatic Eyes: normal inspection, PERRL ENT: hearing grossly normal, + pertinent finding (dry oral mucosa; poor dentition) Neck: supple Respiratory/Chest: lungs clear, no respiratory distress, no accessory muscle use Cardiovascular: regular rate, rhythm Abdomen/GI: normal bowel sounds, non tender, soft Back: normal inspection Extremities/Musculoskelatal: no calf tenderness, no pedal edema Neurologic/Psych: alert, normal mood/affect, oriented x 3 Skin: normal color, warm/dry, no rash Diagnostics Laboratory Results Results Past 24 Hours Test 02/09/18 13:20 02/09/18 14:20 02/09/18 16:00 Range/Units White Blood Count 8.55 4.8-10.8 K/uL Red Blood Count 4.64 4.2-5.4 M/uL Hemoglobin 14.0 12.0-16.0 g/dL Hematocrit 40.4 37-47 % Mean Corpuscular Volume 87.1 80-100 fL Mean Corpuscular Hemoglobin 30.2 25-34 pg Mean Corpuscular Hemoglobin Concent 34.7 32-36 g/dl Platelet Count 214 130-400 K/uL Mean Platelet Volume 10.8 7.4-10.4 fL Neutrophils (%) (Auto) 94.5 % Lymphocytes (%) (Auto) 3.7 % Monocytes (%) (Auto) 1.3 % Eosinophils (%) (Auto) 0.0 % Basophils (%) (Auto) 0.1 % Neutrophils # (Auto) 8.08 1.4-6.5 K/uL Lymphocytes # (Auto) 0.32 1.2-3.4 K/uL Monocytes # (Auto) 0.11 0.11-0.59 K/uL Eosinophils # (Auto) 0.00 0-0.5 K/uL Basophils # (Auto) 0.01 0-0.2 K/uL RDW Standard Deviation 41.3 36.4-46.3 fL RDW Coefficient of Variation 12.8 11.5-14.5 % Immature Granulocyte % (Auto) 0.4 % Immature Granulocyte # (Auto) 0.03 0.00-0.02 K/uL Sodium Level 138 136-145 mmol/L Potassium Level 3.5 3.5-5.1 mmol/L Chloride Level 102 98-107 mmol/L Carbon Dioxide Level 29 21-32 mmol/L Anion Gap 7.0 3-11 mmol/L Blood Urea Nitrogen 22 7-18 mg/dl Creatinine 1.19 0.60-1.20 mg/dl Est Creatinine Clear Calc Drug Dose 39.6 ml/min Estimated GFR () 48.5 Estimated GFR (Non- 41.9 BUN/Creatinine Ratio 18.6 10-20 Random Glucose 138 70-99 mg/dl Calcium Level 9.3 8.5-10.1 mg/dl Total Bilirubin 0.7 0.2-1 mg/dl Direct Bilirubin 0.2 0-0.2 mg/dl Aspartate Amino Transf (AST/SGOT) 25 15-37 U/L Alanine Aminotransferase (ALT/SGPT) 26 12-78 U/L Alkaline Phosphatase 117 45-117 U/L Troponin I 0.059 0-0.045 ng/ml Total Protein 7.5 6.4-8.2 gm/dl Albumin 3.7 3.4-5.0 gm/dl Lipase 59 73-393 U/L Urine Color YELLOW Urine Appearance CLEAR CLEAR Urine pH 6.0 4.5-7.5 Urine Specific [place] 1.020 1.000-1.030 Urine Protein NEG NEG Urine Glucose (UA) NEG NEG Urine Ketones NEG NEG Urine Occult Blood TRACE NEG Urine Nitrite NEG NEG Urine Bilirubin NEG NEG Urine Urobilinogen NEG NEG Urine Leukocyte Esterase SMALL NEG Urine WBC (Auto) 1-5 0-5 /hpf Urine RBC (Auto) 0-4 0-4 /hpf Urine Hyaline Casts (Auto) 0 0-5 /lpf Urine Epithelial Cells (Auto) 10-20 0-5 /lpf Urine Bacteria (Auto) NEG NEG Diagnostic Radiology (CHEST FOR PE) ANGIO WITH CT DOSE: 548.62 mGycm HISTORY: 82 years-old Female presents with acute atypical chest pain with elevated troponin TECHNIQUE: Multiple CTA images of the chest were obtained after the intravenous administration of 113 ml Optiray 320. Coronal and sagittal MIPS were obtained from the axial data set and were submitted for review. A dose lowering technique was utilized adhering to the principles of ALARA. COMPARISON: CT abdomen and pelvis 02/08/2018. FINDINGS: CTA: Mild multichamber cardiac enlargement. No pericardial effusion. No significant coronary arterial calcifications are identified. Thoracic aorta is normal in course and caliber without aneurysm or dissection. The imaged great vessels appear to be patent. Mild kinking about the right subclavian artery without high-grade stenosis identified. No significant atherosclerotic plaquing of the aorta. The pulmonary arterial tree is opacified to level of the segmental branches and demonstrates no focal filling defects to suggest pulmonary thromboembolic disease. The subsegmental branches are not well-seen secondary to contrast bolus timing and respiratory motion. CT CHEST: Heterogeneous thyroid. Mildly enlarged. No pathologically enlarged lymph nodes about the chest identified. Surgical clips about the right axilla suggest prior right axillary yvette dissection. There is no pneumothorax, pleural effusion or lobar airspace consolidation. Linear subsegmental consolidative opacities about the lung bases suggest areas of scarring/atelectasis. There are no suspicious pulmonary nodules or masses identified. Mild bilateral bronchial wall thickening. Central airways appear clear. Prior cholecystectomy. No acute process of the imaged upper abdomen. Small sliding-type hiatal hernia. Mild thickening about the bilateral adrenal glands appears unchanged. Soft tissues are unremarkable. Calcifications about the bilateral breasts. The bones appear intact. Degenerative changes of the shoulders and spine are noted. IMPRESSION: 1. No acute intrathoracic abnormality identified, specifically no acute aortic pathology or evidence of pulmonary thromboembolic disease. 2. No pathologic adenopathy or lobar airspace consolidation. 3. Small sliding-type hiatal hernia. 4. Prior cholecystectomy. The above report was generated using voice recognition software. It may contain grammatical, syntax or spelling errors. Electronically signed by: Cameron Martinez M.D. 02/09/2018 3:20 PM Dictated Date/Time: 02/09/2018 3:15 PM The status of this report is Signed. Draft = Not yet reviewed or approved by Radiologist. Signed = Reviewed and approved by Radiologist. EKG JERMAINE ALCAZAR ID:[id number] 09-FEB-2018 14:32:43 [facility] Normal sinus rhythm Left bundle branch block Abnormal ECG When compared with ECG of 09-FEB-2018 13:32, (unconfirmed) No significant change was found 25mm/s 10mm/mV 150Hz 8.0 SP2 12SL 241 HD MEERA: 12 Referred by: Referred Self Unconfirmed Vent. 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 Abdominal pain, nausea, h/o GERD: - Abdominal CT 02/07- no wall thickening/obstruction, diverticulosis, moderate well-formed stool- MiraLAX daily (did have 3 large BMs yesterday) - Chest CT- no acute findings - Clear liquid diet- advance as tolerated - Gentle IV NSS + KCL supplement at 75 ml/hr until tolerating full PO intake - IV Zofran PRN for nausea - IV Protonix while not tolerating meds + Zantac as can tolerated - LFTs WNL; lipase is not elevated; amylase and lactic acid pending Elevated troponin: - Admit to tele for cardiac monitoring - Trend cardiac enzymes - EKG w/out acute changes; follow QAM and PRN for chest pain - Continue ASA - IV Morphine and Nitro PRN for chest pain - If trop rises, will start IV Heparin gtt - Consider cardiology consultation if trop rises/chest pain worsens- follows w/ Dr. Montes HTN urgency- likely due to not taking medication: - IV Labetalol 10 mg given x1 in ED - Give HCTZ/Losartan 12.5/100 mg now and continue daily - IV Hydralazine PRN HLD: Continue Lipitor Osteoarthritis: Hold Celebrex BID DVT prophylaxis: Heparin SQ TID Code status: LEVEL V, DNR Dispo: From home, lives w/ - PT/OT and CM consulted Resident Physician Supervision Note: I was present with the PA Kim Luo during the history and exam. I discussed the case with the PA and agree with the findings and plan as documented in the note. Any exceptions or clarifications are listed here: 82 y/o F Hx HTN, HPL, GERD - she has been c/o nausea and dry heaving without vomiting. Additionally she describes a feeling of indigestion - she had complained of abdominal pain and then chest discomfort and has a marginal trop elevation on admission OE AAO x 3 S1,2 R CTAB NT, ND No CCE P: Pt will be admitted to telemetry for a RO MA as there is certainly concern that her pain and nausea are anginal equivalents Alternatively her SBP was at 200 on arrival and this may have caused a trop leak. Will place on ASA and a statin. She received IV B gissell in the ER which has brought doen her pressure well. An echo is ordered for AM. We will treat for dyspepsia as well. Documented By: Marcus Maddox Resuscitation Status LEVEL V, DNR VTE Prophylaxis Will order VTE Prophylaxis: Yes
[2018-02-09 16:56] LABS: PTT PATIENT 25.2 SECONDS (21.0-31.0)
[2018-02-09] MEDS ORDERED: HYDROCHLOROTHIAZIDE 25 MG TAB PO SCH (17:00)
[2018-02-09] MEDS ORDERED: LOSARTAN POTASSIUM 50 MG TAB PO SCH (17:00)
[2018-02-09 17:31] VITALS: Ht 162.6 cm; Wt 101.1 kg
[2018-02-09 18:15] VITALS: BP 160/75; PULSE 63; TEMP 36.7; O2SAT 93
--- NOTE | 2018-02-09 18:17 | EMERGENCY ROOM VISIT NOTE ---
History Report prepared by Amanda: Osmani Joseph Under the Supervision of: Dr. Devon Powell D.O. First contact with patient: 12:49 Chief Complaint: ABDOMINAL PAIN Stated Complaint: NAUSEA, ABD PAIN, LIGHT HEADED History of Present Illness The patient is an 82 year old female with a history of GI problems who presents to the Emergency Room with complaints of a waxing and waning left lower abdominal pain that started a couple days ago. She states that she was seen here 2 nights ago with a lot of abdominal pain and nausea. The patient notes that starting around 0200 this morning, the nausea worsened and she has been dry heaving. She says that she has not drank any water today, or had any of her daily medications. The patient notes that her abdominal pain is currently easing up a bit, but the pain is sharp. She says that the pain is not stabbing. The patient states that nothing makes the pain better or worse in particular. She notes that her last bowel movement was yesterday. She adds that she has had a bit of shortness of breath, and some pressure in her upper chest that comes and goes with her nausea and dry heaving. The patient states that the pressure has been here throughout the entire illness, but worsened today. The patient denies any runny nose, cough, vomiting, or pain or burning with urination. She has a history of a cholecystectomy and complete hysterectomy, but still has her appendix. Source of History: patient Onset: A couple days ago Position: abdomen (LLQ) Quality: sharp, other (pain) Timing: waxes/wanes Associated Symptoms: + chest pain, + SOB, + nausea, No cough (or runny nose) , No vomiting, No urinary symptoms Note: Associated symptoms: Dry heaves. Review of Systems See HPI for pertinent positives & negatives. A total of 10 systems reviewed and were otherwise negative. Past Medical & Surgical Medical Problems: (1) Chest pain (2) Hypertensive urgency (3) Lumbar stenosis with neurogenic claudication Family History Patient reports no known family medical history. Social History Smoking Status: Never Smoker Marital Status: Housing Status: lives with significant other Occupation Status: retired Current/Historical Medications Scheduled Aspirin (Aspirin Ec), 81 MG PO QAM Atorvastatin (Lipitor), 40 MG PO QPM Calcium/Vitamin D (Os-Brijesh 500 Plus D), 1 TAB PO QAM Celecoxib (CeleBREX), 200 MG PO BID Hctz/Losartan (Hyzaar 12.5MG/100MG), 1 TAB QAM Multivitamin (Multivitamin), 1 TAB PO QAM Pantoprazole (Protonix), 40 MG PO BID Ranitidine (Zantac), 150 MG PO HS Allergies Coded Allergies: Omeprazole (Verified Allergy, Intermediate, RASH , 02/08/18) Adhesives (Verified Allergy, Unknown, RASH, 02/08/18) Erythromycin (Unverified Allergy, Unknown, PER PCP NOTE- ?REACTION, ) Penicillins (Verified Allergy, Unknown, RASH / LYMPHADENOPATHY, 02/08/18) Physical Exam Vital Signs Date Time Temp Pulse Resp B/P (MAP) Pulse Ox O2 Delivery O2 Flow Rate FiO2 02/09/18 16:20 68 20 207/91 98 Nasal Cannula 2.0 02/09/18 15:50 66 20 207/96 98 Nasal Cannula 2.0 02/09/18 15:27 68 20 206/100 91 Room Air 02/09/18 14:18 74 16 208/80 92 Room Air 02/09/18 13:37 71 22 200/96 93 Room Air 02/09/18 13:36 72 02/09/18 12:45 36.7 70 20 200/83 93 Room Air Physical Exam GENERAL: Sitting up in bed, disheveled, no acute distress, nontoxic EYE EXAM: normal conjunctiva. OROPHARYNX: no exudate, no erythema, lips, buccal mucosa, and tongue normal and mucous membranes are moist NECK: supple, no nuchal rigidity, no adenopathy, non-tender LUNGS: Clear to auscultation. Normal chest wall mechanics HEART: no murmurs, S1 normal and S2 normal ABDOMEN: abdomen soft, non-tender, normo-active bowel sounds, no masses, no rebound or guarding. BACK: Back is symmetrical on inspection and there is no deformity, no midline tenderness, no CVA tenderness. SKIN: no rashes and no bruising UPPER EXTREMITIES: upper extremities are grossly normal. LOWER EXTREMITIES: No pitting edema. NEURO EXAM: Normal sensorium, cranial nerves II-XII grossly intact, normal speech, no gross weakness of arms, no gross weakness of legs. Medical Decision & Procedures ER Provider Diagnostic Interpretation: CT:Per my review, radiologist interpretation. (CHEST FOR PE) ANGIO WITH CT DOSE: 548.62 mGycm HISTORY: 82 years-old Female presents with acute atypical chest pain with elevated troponin TECHNIQUE: Multiple CTA images of the chest were obtained after the intravenous administration of 113 ml Optiray 320. Coronal and sagittal MIPS were obtained from the axial data set and were submitted for review. A dose lowering technique was utilized adhering to the principles of ALARA. COMPARISON: CT abdomen and pelvis 02/08/2018. FINDINGS: CTA: Mild multichamber cardiac enlargement. No pericardial effusion. No significant coronary arterial calcifications are identified. Thoracic aorta is normal in course and caliber without aneurysm or dissection. The imaged great vessels appear to be patent. Mild kinking about the right subclavian artery without high-grade stenosis identified. No significant atherosclerotic plaquing of the aorta. The pulmonary arterial tree is opacified to level of the segmental branches and demonstrates no focal filling defects to suggest pulmonary thromboembolic disease. The subsegmental branches are not well-seen secondary to contrast bolus timing and respiratory motion. CT CHEST: Heterogeneous thyroid. Mildly enlarged. No pathologically enlarged lymph nodes about the chest identified. Surgical clips about the right axilla suggest prior right axillary yvette dissection. There is no pneumothorax, pleural effusion or lobar airspace consolidation. Linear subsegmental consolidative opacities about the lung bases suggest areas of scarring/atelectasis. There are no suspicious pulmonary nodules or masses identified. Mild bilateral bronchial wall thickening. Central airways appear clear. Prior cholecystectomy. No acute process of the imaged upper abdomen. Small sliding-type hiatal hernia. Mild thickening about the bilateral adrenal glands appears unchanged. Soft tissues are unremarkable. Calcifications about the bilateral breasts. The bones appear intact. Degenerative changes of the shoulders and spine are noted. IMPRESSION: 1. No acute intrathoracic abnormality identified, specifically no acute aortic pathology or evidence of pulmonary thromboembolic disease. 2. No pathologic adenopathy or lobar airspace consolidation. 3. Small sliding-type hiatal hernia. 4. Prior cholecystectomy. The above report was generated using voice recognition software. It may contain grammatical, syntax or spelling errors. Electronically signed by: Cameron Martinez M.D. 02/09/2018 3:20 PM Dictated Date/Time: 02/09/2018 3:15 PM Laboratory Results 02/09/18 13:20 Red Blood Count 4.64, Mean Corpuscular Volume 87.1, Mean Corpuscular Hemoglobin 30.2, Mean Corpuscular Hemoglobin Concent 34.7, Mean Platelet Volume 10.8, Neutrophils (%) (Auto) 94.5, Lymphocytes (%) (Auto) 3.7, Monocytes (%) (Auto) 1.3, Eosinophils (%) (Auto) 0.0, Basophils (%) (Auto) 0.1, Neutrophils # (Auto) 8.08, Lymphocytes # (Auto) 0.32, Monocytes # (Auto) 0.11, Eosinophils # (Auto) 0.00, Basophils # (Auto) 0.01 02/09/18 13:20 Test 02/09/18 13:20 02/09/18 14:20 White Blood Count 8.55 K/uL (4.8-10.8) Red Blood Count 4.64 M/uL (4.2-5.4) Hemoglobin 14.0 g/dL (12.0-16.0) Hematocrit 40.4 % (37-47) Mean Corpuscular Volume 87.1 fL (80-100) Mean Corpuscular Hemoglobin 30.2 pg (25-34) Mean Corpuscular Hemoglobin Concent 34.7 g/dl (32-36) Platelet Count 214 K/uL (130-400) Mean Platelet Volume 10.8 fL (7.4-10.4) Neutrophils (%) (Auto) 94.5 % Lymphocytes (%) (Auto) 3.7 % Monocytes (%) (Auto) 1.3 % Eosinophils (%) (Auto) 0.0 % Basophils (%) (Auto) 0.1 % Neutrophils # (Auto) 8.08 K/uL (1.4-6.5) Lymphocytes # (Auto) 0.32 K/uL (1.2-3.4) Monocytes # (Auto) 0.11 K/uL (0.11-0.59) Eosinophils # (Auto) 0.00 K/uL (0-0.5) Basophils # (Auto) 0.01 K/uL (0-0.2) RDW Standard Deviation 41.3 fL (36.4-46.3) RDW Coefficient of Variation 12.8 % (11.5-14.5) Immature Granulocyte % (Auto) 0.4 % Immature Granulocyte # (Auto) 0.03 K/uL (0.00-0.02) Prothrombin Time 10.6 SECONDS (9.0-12.0) Prothromb Time International Ratio 1.0 (0.9-1.1) Activated Partial Thromboplast Time 25.2 SECONDS (21.0-31.0) Partial Thromboplastin Ratio 1.0 Anion Gap 7.0 mmol/L (3-11) Est Creatinine Clear Calc Drug Dose 39.6 ml/min Estimated GFR () 48.5 Estimated GFR (Non- 41.9 BUN/Creatinine Ratio 18.6 (10-20) Calcium Level 9.3 mg/dl (8.5-10.1) Total Bilirubin 0.7 mg/dl (0.2-1) Direct Bilirubin 0.2 mg/dl (0-0.2) Aspartate Amino Transf (AST/SGOT) 25 U/L (15-37) Alanine Aminotransferase (ALT/SGPT) 26 U/L (12-78) Alkaline Phosphatase 117 U/L (45-117) Troponin I 0.059 ng/ml (0-0.045) Total Protein 7.5 gm/dl (6.4-8.2) Albumin 3.7 gm/dl (3.4-5.0) Lipase 59 U/L (73-393) Urine Color YELLOW Urine Appearance CLEAR (CLEAR) Urine pH 6.0 (4.5-7.5) Urine Specific [place] 1.020 (1.000-1.030) Urine Protein NEG (NEG) Urine Glucose (UA) NEG (NEG) Urine Ketones NEG (NEG) Urine Occult Blood TRACE (NEG) Urine Nitrite NEG (NEG) Urine Bilirubin NEG (NEG) Urine Urobilinogen NEG (NEG) Urine Leukocyte Esterase SMALL (NEG) Urine WBC (Auto) 1-5 /hpf (0-5) Urine RBC (Auto) 0-4 /hpf (0-4) Urine Hyaline Casts (Auto) 0 /lpf (0-5) Urine Epithelial Cells (Auto) 10-20 /lpf (0-5) Urine Bacteria (Auto) NEG (NEG) Laboratory results per my review. Medications Administered Medications (Trade) Dose Ordered Sig/Sreekanth Route Start Time Stop Time Status Last Admin Dose Admin Sodium Chloride 1,000 ml @ 999 mls/hr Q1H1M STAT IV 02/09/18 12:58 02/09/18 13:58 DC 02/09/18 13:34 999 MLS/HR Ondansetron HCl (Zofran Inj) 4 mg NOW STAT IV 02/09/18 12:58 02/09/18 12:59 DC 02/09/18 13:34 4 MG Nitroglycerin (Nitroglycerin 2% Oint) 2 inch Q6H EXT 02/09/18 14:45 02/09/18 16:31 DC 02/09/18 14:44 2 INCH Ondansetron HCl (Zofran Inj) 4 mg NOW STAT IV 02/09/18 14:39 02/09/18 14:40 DC 02/09/18 14:43 4 MG Labetalol HCl (Normodyne IV) 10 mg NOW STAT IV 02/09/18 15:33 02/09/18 15:34 DC 02/09/18 15:38 10 MG Labetalol HCl (Normodyne IV) 10 mg NOW STAT IV 02/09/18 16:24 02/09/18 16:25 DC 02/09/18 16:41 10 MG ECG Per My Interpretation Indication: abdominal pain Rate (beats per minute): 70 Rhythm: sinus rhythm Findings: ST depression (lateral and high lateral ), other (normal axis) Comparison ECG Date: compared to 08/21/2008, LBBB is old Change: Repeat EKG: Sinus rhythm 69 bpm, left axis deviation, LBBB, no acute change. ED Course ED COURSE: Vital signs were reviewed and showed hypertensive vitals. The patients medical record was reviewed The above diagnostic studies were performed and reviewed. ED treatments and interventions as stated above. 1250: The patient was evaluated in room A3. A complete history and physical examination was performed. 1258: Zofran Inj 4 mg IV, NSS 1000 ml @ 999 mls/hr IV. 1433: I reevaluated the patient and she has no chest pain. 1445: Nitroglycerin 2% Oint 2 inch EXT. 1532: Upon reevaluation, the patient has no pain.I discussed my findings with the patient and she understands and agrees with the treatment plan. Based on the patients age, coexisting illnesses, exam and lab findings the decision to treat as an inpatient was made. The patient remained stable while under my care. The patient will be evaluated for further management. 1533: Normodyne IV 10 mg. 1535: I reviewed the patient's case with Dr. Varsha SHEPHERD panel coverer. He will evaluate the patient for further management. 1624: I reevaluated the patient and we are giving another dose of Labetalol. Medical Decision Differential diagnoses includes but is not limited to gastritis, peptic ulcer disease, GERD, gallbladder disease, pancreatitis, small bowel obstruction, acute coronary syndrome, pericarditis, ischemic bowel, irritable bowel disease, irritable bowel syndrome, appendicitis, diverticulitis, malignancy, hernia, urinary tract infection, torsion, perforation, trauma, infectious. Patient is an 82-year-old female who presents the ER for lower left abdominal pain associated with some intermittent chest pain. She was seen here previously several days ago and had a negative CT of the abdomen. Today EKG was unremarkable. CBC along with BMP, LFTs, bilirubin and lipase was normal. Troponin was elevated at 0.06. UA was negative. CT of the chest was unremarkable and was performed as she was complaining of chest and abdominal pain to make sure she did not have a dissection with elevated troponin. She was given aspirin. Her blood pressures remained in the low 200s. She was given Nitropaste along with 2 doses of IV labetalol. Blood pressures did trend down slightly. Discussed with internal medicine. Uncertain of the true etiology of the elevated troponin she will be observed at this point. She was given as stated above 2 doses of labetalol and nitro paste to help control her pressure. Favor likely hypertensive emergency/urgency versus NSTEMI. Medication Reconcilliation Current Medication List: was personally reviewed by me Blood Pressure Screening Patient's blood pressure: Elevated blood pressure Referred to hospitalist. Consults Time Called: 1530 Consulting Physician: Dr. Varsha SHEPHERD panel coverer Returned Call: 1535 I reviewed the patient's case with Dr. Varsha SHEPHERD panel coverer. He will evaluate the patient for further management. Impression Primary Impression: Hypertensive urgency Additional Impressions: Elevated troponin Abdominal pain Chest pain Critical Care I have personally spent 35 minutes of critical care time in the direct management of this patient. This includes bedside care, interpretation of diagnostic studies, and testing, discussion with consultants, patient, and family members, and other required patient management activities. This 35 minutes is in excess of all separately billable procedures. Scribe Attestation The scribe's documentation has been prepared under my direction and personally reviewed by me in its entirety. I confirm that the note above accurately reflects all work, treatment, procedures, and medical decision making performed by me. Departure Information Dispostion Being Evaluated By Hospitalist Referrals Vic Marina M.D. (PCP) Patient Instructions My [facility] Problem Qualifiers Additional Impressions: Abdominal pain Abdominal location: unspecified location Qualified Codes: R10.9 - Unspecified abdominal pain Chest pain Chest pain type: unspecified Qualified Codes: R07.9 - Chest pain, unspecified
[2018-02-09] MEDS ORDERED: PANTOprazole INJ 40 MG in SYRINGE 0 ML IV ONE (18:30)
[2018-02-09] MEDS: NSS + 20MEQ KCL 1000ML 1,000 ML IV SCH (18:45)
[2018-02-09 19:46] VITALS: BP 143/59; PULSE 78; O2SAT 93
[2018-02-09] MEDS: RANITIDINE HCL 150 MG TAB PO SCH (21:05)
[2018-02-09] MEDS: ATORVASTATIN 40 MG TAB PO SCH (21:05)
[2018-02-09] MEDS: HEPARIN SOD 5000 UNIT/0.5 ML CARP SQ SCH (21:17)
[2018-02-09 21:46] LABS: CKMB 2.7 ng/ml (0.5-3.6)
[2018-02-10] VITALS (8 sets, daily range): BP systolic 134–197; BP diastolic 57–72; PULSE 58–79; TEMP 36.5–37.1; O2SAT 90–96
[2018-02-10] MEDS: HEPARIN SOD 5000 UNIT/0.5 ML CARP SQ SCH ×3 (05:36→22:15)
[2018-02-10 06:53] LABS: CKMB 2.7 ng/ml (0.5-3.6)
--- NOTE | 2018-02-10 07:38 | Progress Note ---
Subjective Date of Service: February 10, 2018. Subjective Pt has had no further chest pain or epigastric discomfort, after discussion with cardiology working theory is that hypertensive urgency caused some supply demand mistmatch, albeit a type 2 PR not a nstemi Problem List Medical Problems: (1) Abdominal pain Status: Acute (2) Abdominal pain Status: Acute (3) Constipation Status: Acute (4) Elevated troponin Status: Acute (5) Hypertension Status: Acute (6) Urinary retention Status: Acute Review of Systems Constitutional: No fever, No chills, No weakness, No fatigue Respiratory: No cough, No sputum, No wheezing, No shortness of breath Cardiac: No chest pain, No edema Abdomen: No pain, No nausea, No vomiting, No diarrhea Neurologic: No memory loss, No paralysis Objective Vital Signs Date Time Temp Pulse Resp B/P (MAP) Pulse Ox O2 Delivery O2 Flow Rate FiO2 02/10/18 04:00 Room Air 02/10/18 03:50 37.1 64 16 134/57 (82) 92 02/10/18 00:21 36.5 78 18 153/61 (91) 93 02/10/18 00:00 Room Air 02/09/18 20:00 Room Air 02/09/18 19:46 78 20 143/59 (87) 93 02/09/18 18:15 36.7 63 20 160/75 (103) 93 Room Air 02/09/18 17:55 67 16 160/75 93 Room Air 02/09/18 17:31 Room Air 02/09/18 17:00 69 20 168/72 91 Room Air 02/09/18 16:42 66 20 193/85 94 Room Air 02/09/18 16:20 68 20 207/91 98 Nasal Cannula 2.0 02/09/18 15:50 66 20 207/96 98 Nasal Cannula 2.0 02/09/18 15:27 68 20 206/100 91 Room Air 02/09/18 14:18 74 16 208/80 92 Room Air 02/09/18 13:37 71 22 200/96 93 Room Air 02/09/18 13:36 72 02/09/18 12:45 36.7 70 20 200/83 93 Room Air Physical Exam General Appearance: WD/WN, + mild distress Eyes: normal inspection, sclerae normal Neck: supple, no JVD Respiratory/Chest: chest non-tender, lungs clear, normal breath sounds Cardiovascular: regular rate, rhythm, no murmur Abdomen: normal bowel sounds, non tender, soft Extremities: no pedal edema, no calf tenderness Neurologic/Psychiatric: alert, oriented x 3 Laboratory Results Last 24 Hours Test 02/09/18 13:20 02/09/18 14:20 02/09/18 16:30 02/09/18 21:15 White Blood Count 8.55 K/uL Red Blood Count 4.64 M/uL Hemoglobin 14.0 g/dL Hematocrit 40.4 % Mean Corpuscular Volume 87.1 fL Mean Corpuscular Hemoglobin 30.2 pg Mean Corpuscular Hemoglobin Concent 34.7 g/dl Platelet Count 214 K/uL Mean Platelet Volume 10.8 fL Neutrophils (%) (Auto) 94.5 % Lymphocytes (%) (Auto) 3.7 % Monocytes (%) (Auto) 1.3 % Eosinophils (%) (Auto) 0.0 % Basophils (%) (Auto) 0.1 % Neutrophils # (Auto) 8.08 K/uL Lymphocytes # (Auto) 0.32 K/uL Monocytes # (Auto) 0.11 K/uL Eosinophils # (Auto) 0.00 K/uL Basophils # (Auto) 0.01 K/uL RDW Standard Deviation 41.3 fL RDW Coefficient of Variation 12.8 % Immature Granulocyte % (Auto) 0.4 % Immature Granulocyte # (Auto) 0.03 K/uL Prothrombin Time 10.6 SECONDS Prothromb Time International Ratio 1.0 Activated Partial Thromboplast Time 25.2 SECONDS Partial Thromboplastin Ratio 1.0 Sodium Level 138 mmol/L Potassium Level 3.5 mmol/L Chloride Level 102 mmol/L Carbon Dioxide Level 29 mmol/L Anion Gap 7.0 mmol/L Blood Urea Nitrogen 22 mg/dl Creatinine 1.19 mg/dl Est Creatinine Clear Calc Drug Dose 39.6 ml/min Estimated GFR () 48.5 Estimated GFR (Non- 41.9 BUN/Creatinine Ratio 18.6 Random Glucose 138 mg/dl Calcium Level 9.3 mg/dl Total Bilirubin 0.7 mg/dl Direct Bilirubin 0.2 mg/dl Aspartate Amino Transf (AST/SGOT) 25 U/L Alanine Aminotransferase (ALT/SGPT) 26 U/L Alkaline Phosphatase 117 U/L Troponin I 0.059 ng/ml 0.079 ng/ml Total Protein 7.5 gm/dl Albumin 3.7 gm/dl Lipase 59 U/L Urine Color YELLOW Urine Appearance CLEAR Urine pH 6.0 Urine Specific [place] 1.020 Urine Protein NEG Urine Glucose (UA) NEG Urine Ketones NEG Urine Occult Blood TRACE Urine Nitrite NEG Urine Bilirubin NEG Urine Urobilinogen NEG Urine Leukocyte Esterase SMALL Urine WBC (Auto) 1-5 /hpf Urine RBC (Auto) 0-4 /hpf Urine Hyaline Casts (Auto) 0 /lpf Urine Epithelial Cells (Auto) 10-20 /lpf Urine Bacteria (Auto) NEG Lactic Acid Level 1.5 mmol/L Amylase Level 26 U/L Creatine Kinase MB 2.7 ng/ml Creatine Kinase MB Ratio Test 02/10/18 05:30 02/10/18 05:37 Creatine Kinase MB Ratio Creatine Kinase MB 2.7 ng/ml Troponin I 0.108 ng/ml Assessment and Plan 82 y/oF with abd pain N/V elevated blood pressure and with elevated troponin on presentation, with PMHx of HTN, HLD, and GERD Elevated troponin:EKG w/out acute changes however has LBBB making it difficult to interpret Troponin has mild rise now with concern for type 2 mi but not nstemi, cardiology consult concurs and agrees with starting B gissell. echo shows preserved EF and some ventricular hypertrophy. will trend troponins and then eval if needs stress in pt or outpt, will need nuclear Persantine stress as has LBBB - Continue ASA, lipitor HTN urgency- likely due to not taking medication due to N/V - IV Labetalol 10 mg given x1 in ED, will use metoprolol - IV Hydralazine PRN Abdominal pain, nausea, h/o GERD: -Ct evaluation has been unremarkable, Chest abdomen and pelvis - Clear liquid diet- advance as tolerated HLD: Continue Lipitor Osteoarthritis: Hold Celebrex BID DVT prophylaxis: Heparin SQ TID Code status: LEVEL V, DNR Dispo: From home, lives w/ - PT/OT and CM consulted
[2018-02-10] MEDS: MULTIVITAMIN TAB PO SCH (08:11)
[2018-02-10] MEDS: ASPIRIN 81 MG ECTAB PO SCH (08:11)
[2018-02-10] MEDS: CALCIUM 600MG + VIT D 400 IU TAB PO SCH (08:11)
[2018-02-10] MEDS: NSS + 20MEQ KCL 1000ML 1,000 ML IV SCH (08:12)
[2018-02-10] MEDS: POLYETHYLENE (MIRALAX) 17 GM PACK PO SCH (08:17)
[2018-02-10] MEDS ORDERED: LOSARTAN POTASSIUM 50 MG TAB PO SCH (09:00)
[2018-02-10] MEDS ORDERED: HYDROCHLOROTHIAZIDE 25 MG TAB PO SCH (09:00)
[2018-02-10] MEDS ORDERED: METOPROLOL TARTRATE 25 MG TAB PO SCH (09:00)
--- NOTE | 2018-02-10 10:02 | ECHOCARDIOGRAM REPORT ---
*NOTICE TO RECEIVING DEMOCRAT AGENCY This information is strictly Confidential and protected under [place] law. [place] law prohibits you from making any further disclosure of this information unless further disclosure is expressly permitted by the written consent of the person to whom it pertains or is authorized by law. A general authorization for the release of medical or other information is not sufficient for this purpose. Hospital accepts no responsibility if the information is made available to any other person, INCLUDING THE PATIENT. Interpretation Summary * Name: JERMAINE ALCAZAR Study Date: 02/10/2018 06:27 AM BP: 134/57 mmHg * Patient Location: [id number].[id number]\E206\S\1 HR: 64 * : 1935 (M/d/yyyy) Gender: Female Height: 64 in * Age: 82 yrs Ethnicity: [place] Weight: 211 lb * Ordering Physician: Marcus Maddox * Referring Physician: Self, Referred * Performed By: Shiloh Mcdaniel RDCS * * Reason For Study: ELEVATED TROPONIN * BSA: 2.0 m2 * -- Conclusions -- * 1. Normal left ventricular size with low-normal systolic function. EF 50-55%. Hypokinesis of the inferolateral wall. Septal motion consistent with bundle-branch block. Severe asymmetric hypertrophy of the basal anteroseptum and basal septum. Otherwise, moderate concentric left ventricular hypertrophy. Type 1 diastolic dysfunction. * 2. Sclerotic aortic valve without significant stenosis. * 3. Mild systolic anterior motion of the mitral leaflet. * 4. There is mild mitral regurgitation. * 5. Normal estimated right ventricular systolic pressure; 33mmHg. * 6. No prior study available for side to side comparison. Procedure Details * Left Ventricle Normal left ventricular size with low-normal systolic function. EF 50-55%. Hypokinesis of the inferolateral wall. Septal motion consistent with bundle-branch block. Severe asymmetric hypertrophy of the basal anteroseptum and basal septum. Otherwise, moderate concentric left ventricular hypertrophy. Type 1 diastolic dysfunction. * Right Ventricle The right ventricle is normal in size and function. The right ventricular systolic function is normal as assessed by tricuspid annular plane systolic excursion (TAPSE) (normal >1.5 cm). * Atria The left atrial size is normal. Right atrial size is normal. There is no evidence of atrial septal defect, but resolution does not allow assessment for a patent foramen ovale. * Mitral Valve Mild systolic anterior motion of the mitral leaflet. There is no mitral valve stenosis. There is mild mitral regurgitation. * Tricuspid Valve The tricuspid valve is not well visualized, but is grossly normal. There is no tricuspid stenosis. There is mild tricuspid regurgitation. * Aortic Valve The aortic valve is not well visualized. Sclerotic aortic valve without significant stenosis. There is no significant aortic regurgitation. * Pulmonic Valve The pulmonary valve is inadequately visualized, but the Doppler data is adequate for interpretation. There is no pulmonic valvular stenosis. There is no significant pulmonary regurgitation. * Great Vessels The aortic root is normal size. * Pericardium/Pleural There is no pericardial effusion. * Great Vessels Normal IVC size with reduced inspiratory collapse. * * MMode 2D Measurements and Calculations * IVSd 2.1 cm * IVSs 2.3 cm * * LVIDd 4.1 cm * LVIDs 2.9 cm * LVPWd 1.4 cm * LVPWs 1.9 cm * * IVS/LVPW 1.5 * FS 29.7 % * EDV(Teich) 75.2 ml * ESV(Teich) 32.1 ml * EF(Teich) 57.2 % * * EDV(cubed) 70.0 ml * ESV(cubed) 24.3 ml * EF(cubed) 65.3 % * % IVS thick 6.8 % * % LVPW thick 36.2 % * * LV mass(C)d 315.8 grams * LV mass(C)dI 157.8 grams/m\S\2 * LV mass(C)s 277.2 grams * LV mass(C)sI 138.5 grams/m\S\2 * * SV(Teich) 43.0 ml * SI(Teich) 21.5 ml/m\S\2 * SV(cubed) 45.7 ml * SI(cubed) 22.8 ml/m\S\2 * * Ao root diam 3.3 cm * Ao root area 8.6 cm\S\2 * LA dimension 3.8 cm * * LA/Ao 1.2 * * LVAd ap4 36.7 cm\S\2 * LVLd ap4 9.1 cm * EDV(MOD-sp4) 119.1 ml * EDV(sp4-el) 125.7 ml * LVAs ap4 23.5 cm\S\2 * LVLs ap4 7.7 cm * ESV(MOD-sp4) 57.3 ml * ESV(sp4-el) 61.3 ml * EF(MOD-sp4) 51.8 % * EF(sp4-el) 51.3 % * * LVAd ap2 33.6 cm\S\2 * LVLd ap2 9.2 cm * EDV(MOD-sp2) 97.3 ml * EDV(sp2-el) 104.4 ml * LVAs ap2 20.4 cm\S\2 * LVLs ap2 7.5 cm * ESV(MOD-sp2) 45.2 ml * ESV(sp2-el) 46.9 ml * EF(MOD-sp2) 53.6 % * EF(sp2-el) 55.1 % * * LVLd %diff 2.5 % * EDV(MOD-bp) 111.5 ml * LVLs %diff 0.46 % * ESV(MOD-bp) 49.6 ml * EF(MOD-bp) 55.5 % * * SV(MOD-sp4) 61.7 ml * SI(MOD-sp4) 30.9 ml/m\S\2 * * SV(MOD-sp2) 52.1 ml * SI(MOD-sp2) 26.0 ml/m\S\2 * * SV(MOD-bp) 61.9 ml * SI(MOD-bp) 30.9 ml/m\S\2 * * SV(sp4-el) 64.4 ml * SI(sp4-el) 32.2 ml/m\S\2 * * SV(sp2-el) 57.5 ml * SI(sp2-el) 28.7 ml/m\S\2 * * * Doppler Measurements and Calculations * MV E max rebecca 63.6 cm/sec * MV A max rebecca 103.0 cm/sec * * MV E/A 0.62 * * MV dec time 0.35 sec * * Ao V2 max 140.7 cm/sec * Ao max PG 7.9 mmHg * Ao max PG (full) 1.7 mmHg * * LV V1 max PG 6.2 mmHg * * LV V1 max 124.6 cm/sec * * TR max rebecca 249.9 cm/sec * RVSP(TR) 33.0 mmHg * * RAP systole 8.0 mmHg * *
[2018-02-10] MEDS ORDERED: PANTOprazole INJ 40 MG in SYRINGE 0 ML IV SCH (11:00)
--- NOTE | 2018-02-10 13:42 | Cardiology Consultation ---
Cardiology Consultation Date of Consultation: February 10, 2018. Requesting Physician: Dr. Mendoza Attending Physician: Dr. Mendoza Reason for Consultation: elevated trop Pt evaluation today including: conversation w/ patient, physical exam, chart review, lab review, review of studies, review of inpatient medication list, conversation w/ attending History of Present Illness Mrs Aranda is a very pleasant 82-year-old female with a history significant for left bundle-branch block, hypertension, and dyslipidemia. 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 Approximately 4 days ago after eating lunch, she developed abdominal discomfort. On Wednesday, she did not eat dinner as she felt lousy throughout the day. She then developed abdominal discomfort that night at approximately 11:00 p.m. and her typical acid reflux type symptoms. These symptoms persisted for greater than 1 day. She developed dry heaves. She also developed diarrhea approximately 4 days ago and took Imodium which helped improve her diarrhea symptoms. She states that she typically has acid reflux symptoms and when she takes Protonix, her symptoms resolved. She describes it as heartburn in her chest. Symptoms are related to food. She denies exertional chest discomfort but also admits that she does not walk much secondary to back pain from spinal stenosis. She has mild dyspnea with exertion while climbing stairs which is a chronic and stable issue. She denies shortness of breath at rest, orthopnea, syncope, near-syncope, palpitations, edema, melena, hematochezia, hematuria, or other bleeding. She has been noticing some hot flashes as well as diaphoresis overnight. On Wednesday morning at 2:00 a.m. she was awakened with nausea. She tolerated a light breakfast this morning. She states that she had an EGD approximately 1 year ago. Her EGD was on 03/11/2017 demonstrated esophageal stenosis which underwent dilation. She also had a small hiatal hernia. She is currently asymptomatic. She was wondering when she could go home. Review of systems: As above. Past Medical/Surgical History 1. Hypertension 2. Dyslipidemia 3. Acid reflux 4. Osteoarthritis 5. Bilateral knee replacement 6. Spinal surgery 7. Spinal stenosis 8. Bilateral carpal tunnel surgery 9. Cataract 10. Cholecystectomy 11. Breast lumpectomy 12. Thyroid surgery 13. Hysterectomy 14. Tonsillectomy 15. Anal fistulotomy 16. Esophageal stricture/stenosis status post dilation 2016 Family History Mother at the age of 86 from myocardial infarction. No known premature CAD. Social History Smoking Status: Never Smoker History of Alcohol Use: No Denies tobacco, alcohol, or drug abuse. Lives at home with her . Five children. One lives local. She was unaccompanied during our meeting today. All Other Systems: Reviewed and Negative Allergies Coded Allergies: Omeprazole (Verified Allergy, Intermediate, RASH , 02/08/18) Adhesives (Verified Allergy, Unknown, RASH, 02/08/18) Erythromycin (Unverified Allergy, Unknown, PER PCP NOTE- ?REACTION, ) Latex1 -Allergic Contact Dermititis (Verified Allergy, Unknown, rash, 02/09) Penicillins (Verified Allergy, Unknown, RASH / LYMPHADENOPATHY, 02/08/18) Medications Reported Home Medications Medications Dose Route/Sig Max Daily Dose Days Date Category Dose Instructions Zantac (Ranitidine HCl) 150 Mg Tab 150 Mg PO HS 03/04/17 Reported Os-Brijesh 500 Plus D (Calcium/Vitamin D) Tab 1 Tab PO QAM 03/04/17 Reported CeleBREX (Celecoxib) 200 Mg Cap 200 Mg PO BID 03/04/17 Reported Aspirin Ec (Aspirin) 81 Mg Tab 81 Mg PO QAM 10/14/15 Reported Multivitamin (Multivitamins) Tab 1 Tab PO QAM 03/21/14 Reported Hyzaar 12.5MG/100MG (Hctz/Losartan) 1 Tab Tab 1 Tab QAM 12/11/12 Reported DOSE OF 100/25MG Protonix (Pantoprazole Sodium) 40 Mg Tab 40 Mg PO BID 10/22/08 Reported Lipitor (Atorvastatin Calcium) 40 Mg Tab 40 Mg PO QPM 10/22/08 Reported Current Inpatient Medications Medications (Trade) Dose Ordered Sig/Sreekanth Route Start Time Stop Time Status Last Admin Dose Admin Ioversol (Optiray 320) 100 ml UD PRN IV 02/09/18 14:30 02/13/18 14:29 Heparin Sodium (Porcine) (Heparin Sq 5000 Unit/0.5ml) 5,000 unit Q8 SQ 02/09/18 22:00 03/11/18 21:59 02/10/18 13:05 5,000 UNIT Acetaminophen (Tylenol Tab) 650 mg Q4H PRN PO 02/09/18 16:30 03/11/18 16:29 Al Hydrox/Mg Hydrox/Simethicone (Maalox Max Susp) 15 ml Q4H PRN PO 02/09/18 16:30 03/11/18 16:29 Magnesium Hydroxide (Milk Of Magnesia Susp) 30 ml Q12H PRN PO 02/09/18 16:30 03/11/18 16:29 Ondansetron HCl (Zofran Inj) 4 mg Q6H PRN IV 02/09/18 16:30 03/11/18 16:29 Nitroglycerin (Nitrostat Tab) 0.4 mg UD PRN SL 02/09/18 16:30 03/11/18 16:29 Morphine Sulfate (MoRPHine SULFATE INJ) 2 mg Q30M PRN IV 02/09/18 16:30 02/23/18 16:29 Aspirin (Ecotrin Tab) 81 mg QAM PO 02/10/18 09:00 03/12/18 08:59 02/10/18 08:11 81 MG Atorvastatin Calcium (Lipitor Tab) 40 mg QPM PO 02/09/18 21:00 03/11/18 20:59 02/09/18 21:05 40 MG Calcium/Vitamin D (Caltrate Plus Tab) 1 tab QAM PO 02/10/18 09:00 03/12/18 08:59 02/10/18 08:11 1 TAB Multivitamins (Multivitamin Tab) 1 tab QAM PO 02/10/18 09:00 03/12/18 08:59 02/10/18 08:11 1 TAB Ranitidine HCl (zANTac TAB) 150 mg HS PO 02/09/18 21:00 03/11/18 20:59 02/09/18 21:05 150 MG Pantoprazole Sodium 40 mg/ Syringe 10 ml @ 5 mls/min DAILY@11 IV 02/10/18 11:00 03/12/18 10:59 02/10/18 11:01 5 MLS/MIN Potassium Chloride/Sodium Chloride 1,000 ml @ 75 mls/hr [id number] IV 02/09/18 18:30 03/11/18 16:29 02/10/18 08:12 75 MLS/HR Hydralazine HCl (HydrALAZINE INJ) 10 mg Q6H PRN IV. 02/09/18 16:30 03/11/18 16:29 Polyethylene (Miralax Powder Packet) 17 gm DAILY PO 02/10/18 09:00 03/11/18 16:29 Metoprolol Tartrate (Lopressor Tab) 12.5 mg BID PO 02/10/18 09:00 03/12/18 08:59 02/10/18 08:10 12.5 MG Physical Exam Vital Signs Past 12 Hours Date Time Temp Pulse Resp B/P (MAP) Pulse Ox O2 Delivery O2 Flow Rate FiO2 02/10/18 12:04 36.8 62 20 145/57 (86) 94 Room Air 02/10/18 12:00 Room Air 02/10/18 08:03 36.8 79 20 176/62 (100) 96 Room Air 02/10/18 08:00 Room Air 02/10/18 04:00 Room Air 02/10/18 03:50 37.1 64 16 134/57 (82) 92 Gen.: No acute distress. Alert and oriented. HEENT: Anicteric sclera. Neck: No JVD. No bruits. Normal carotid upstrokes bilaterally. Cardiac: PMI was nonpalpable. No ventricular heave. Regular rate and rhythm. Normal S1-S2. No murmurs, rubs, or gallops. Pulmonary: Clear to auscultation bilaterally without wheezes, rales, or rhonchi. Abdomen: Soft, nondistended, with normoactive bowel sounds. Mild general and diffuse tenderness. No rebound tenderness. No mass palpated. No bruits noted. Extremities: 2+ radial pulses bilaterally. 2+ posterior tibialis pulses bilaterally. No edema or cyanosis. Psychiatric: Affect appears appropriate. Data Laboratory Results: Last 24 Hours Test 02/09/18 13:20 02/09/18 14:20 02/09/18 16:30 02/09/18 21:15 White Blood Count 8.55 K/uL Red Blood Count 4.64 M/uL Hemoglobin 14.0 g/dL Hematocrit 40.4 % Mean Corpuscular Volume 87.1 fL Mean Corpuscular Hemoglobin 30.2 pg Mean Corpuscular Hemoglobin Concent 34.7 g/dl Platelet Count 214 K/uL Mean Platelet Volume 10.8 fL Neutrophils (%) (Auto) 94.5 % Lymphocytes (%) (Auto) 3.7 % Monocytes (%) (Auto) 1.3 % Eosinophils (%) (Auto) 0.0 % Basophils (%) (Auto) 0.1 % Neutrophils # (Auto) 8.08 K/uL Lymphocytes # (Auto) 0.32 K/uL Monocytes # (Auto) 0.11 K/uL Eosinophils # (Auto) 0.00 K/uL Basophils # (Auto) 0.01 K/uL RDW Standard Deviation 41.3 fL RDW Coefficient of Variation 12.8 % Immature Granulocyte % (Auto) 0.4 % Immature Granulocyte # (Auto) 0.03 K/uL Prothrombin Time 10.6 SECONDS Prothromb Time International Ratio 1.0 Activated Partial Thromboplast Time 25.2 SECONDS Partial Thromboplastin Ratio 1.0 Sodium Level 138 mmol/L Potassium Level 3.5 mmol/L Chloride Level 102 mmol/L Carbon Dioxide Level 29 mmol/L Anion Gap 7.0 mmol/L Blood Urea Nitrogen 22 mg/dl Creatinine 1.19 mg/dl Est Creatinine Clear Calc Drug Dose 39.6 ml/min Estimated GFR () 48.5 Estimated GFR (Non- 41.9 BUN/Creatinine Ratio 18.6 Random Glucose 138 mg/dl Calcium Level 9.3 mg/dl Total Bilirubin 0.7 mg/dl Direct Bilirubin 0.2 mg/dl Aspartate Amino Transf (AST/SGOT) 25 U/L Alanine Aminotransferase (ALT/SGPT) 26 U/L Alkaline Phosphatase 117 U/L Troponin I 0.059 ng/ml 0.079 ng/ml Total Protein 7.5 gm/dl Albumin 3.7 gm/dl Lipase 59 U/L Urine Color YELLOW Urine Appearance CLEAR Urine pH 6.0 Urine Specific [place] 1.020 Urine Protein NEG Urine Glucose (UA) NEG Urine Ketones NEG Urine Occult Blood TRACE Urine Nitrite NEG Urine Bilirubin NEG Urine Urobilinogen NEG Urine Leukocyte Esterase SMALL Urine WBC (Auto) 1-5 /hpf Urine RBC (Auto) 0-4 /hpf Urine Hyaline Casts (Auto) 0 /lpf Urine Epithelial Cells (Auto) 10-20 /lpf Urine Bacteria (Auto) NEG Lactic Acid Level 1.5 mmol/L Amylase Level 26 U/L Creatine Kinase MB 2.7 ng/ml Creatine Kinase MB Ratio Test 02/10/18 05:30 02/10/18 05:37 02/10/18 12:48 Creatine Kinase MB Ratio Creatine Kinase MB 2.7 ng/ml Troponin I 0.108 ng/ml Telemetry personally reviewed. No arrhythmia. ECG personally reviewed. ECG 02/09/2018 at 1:32 p.m.: Sinus rhythm 70 bpm. LBBB. Compared to prior ECG on 08/21/2008, LBBB is not new. ECG 02/10/2018 7:03 a.m.: Sinus rhythm 60. LBBB. Echo 02/10/2018: Normal LV size with low-normal systolic function. EF 50-55%. Hypokinesis of the inferolateral wall. Septal motion consistent with bundle- branch block. Severe asymmetric hypertrophy of basal anteroseptum and basal septum. Type 1 diastolic dysfunction. Mild systolic anterior motion of mitral leaflet. Sclerotic aortic valve without significant stenosis. Mild MR. RVSP 33. CT angiogram 02/09/2018: No acute abnormality per Radiology. Specifically no aortic pathology or PE. Small sliding type hiatal hernia. Assessment & Plan ASSESSMENT/PLAN: 1. Elevated troponins: She did not present with acute coronary syndrome. Her troponin elevation is not diagnostic of myocardial infarction. Her symptoms appear to be GI in etiology as she has had chronic acid reflux type symptoms related to food and now has abdominal discomfort with nausea, dry heaves, and also episode of diarrhea. Elevated troponins could be secondary to her severe hypertension upon presentation, especially in lieu of severe hypertrophy of the basal anteroseptum/septum. Recommend optimizing blood pressure control. Can consider outpatient myocardial perfusion study. There is no urgent indication for cardiac catheterization. 2. Hypertension: She had severely elevated hypertension when she presented. Her ARB has been held by primary service. She has been placed on beta-gissell. Titrate medication as appropriate for blood pressure control. Agree with beta -gissell. 3. LBBB: Chronic. She is aware of this finding on ECG. 4. Systolic anterior motion of the mitral valve with mild regurgitation: There is no obvious obstruction noted on echo. Agree of beta-gissell. 5. Abdominal pain: Her symptoms appeared GI in etiology. Will defer to primary service. Outpatient myocardial perfusion study recommended as above. 6. Disposition: Plan of care has been discussed with Dr. Mendoza of the primary hospitalist service. She would like to follow-up with Dr. 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
[2018-02-10] MEDS: ONDANSETRON INJ 2 MG/ML 2 ML VIAL IV PRN ×3 (16:07→22:01)
[2018-02-10] MEDS: HydrALAZINE HCL 20 MG/ML VIAL IV. PRN (17:34)
[2018-02-10] MEDS ORDERED: LIDOCAINE HCL PO ONE ×2 (17:45)
[2018-02-10] MEDS ORDERED: NURSING VERBAL MED ORDER ONE ×2 (17:45→18:45)
[2018-02-10] MEDS ORDERED: [UNRECOGNIZED DRUG - OTHER] PO ONE ×2 (17:45)
[2018-02-10] MEDS ORDERED: ALUMINUM PO ONE ×2 (17:45)
[2018-02-10] MEDS ORDERED: MAGNESIUM PO ONE ×2 (17:45)
[2018-02-10] MEDS ORDERED: VISCOUS PO ONE ×2 (17:45)
[2018-02-10] MEDS: SUCRALFATE 1 GM TAB PO SCH (20:54)
[2018-02-10] MEDS: PANTOprazole INJ 40 MG in SYRINGE 0 ML IV SCH (20:54)
[2018-02-10] MEDS: METOPROLOL TARTRATE 25 MG TAB PO SCH (20:54)
[2018-02-10] MEDS: ATORVASTATIN 40 MG TAB PO SCH (20:55)
[2018-02-10] MEDS: RANITIDINE HCL 150 MG TAB PO SCH (20:55)
[2018-02-11] VITALS (9 sets, daily range): BP systolic 122–180; BP diastolic 47–67; PULSE 55–70; TEMP 36.6–36.8; O2SAT 92–96
[2018-02-11] MEDS: ONDANSETRON INJ 2 MG/ML 2 ML VIAL IV PRN ×2 (04:34→10:57)
[2018-02-11] MEDS: ALUMINUM/MAGNESIUM/SIMETH (MAALOX MAX) 30 ML UDC PO PRN (04:34)
[2018-02-11] MEDS: HydrALAZINE HCL 20 MG/ML VIAL IV. PRN (04:44)
[2018-02-11] MEDS: HEPARIN SOD 5000 UNIT/0.5 ML CARP SQ SCH ×3 (05:12→20:50)
--- NOTE | 2018-02-11 07:41 | Progress Note ---
Subjective Date of Service: February 11, 2018. Subjective this pt is feeling horrible, she states she in not any better, she feels nauseated and does not want to take any po due to nausea, she has dry heaves Problem List Medical Problems: (1) Abdominal pain Status: Acute (2) Abdominal pain Status: Acute (3) Constipation Status: Acute (4) Elevated troponin Status: Acute (5) Hypertension Status: Acute (6) Urinary retention Status: Acute Review of Systems Constitutional: + weakness, + fatigue Respiratory: No cough, No shortness of breath, No dyspnea on exertion Cardiac: + chest pain, No edema Abdomen: + nausea, No pain, No vomiting, No diarrhea, No constipation Musculoskeletal: No joint pain, No muscle pain Female : No dysuria, No urinary frequency Psychiatric: No depression symptoms, No anhedonism Objective Vital Signs Date Time Temp Pulse Resp B/P (MAP) Pulse Ox O2 Delivery O2 Flow Rate FiO2 02/11/18 07:04 36.8 60 16 171/59 (96) 96 2.0 02/11/18 04:00 95 Room Air 02/11/18 03:42 36.6 60 16 177/67 (103) 95 02/11/18 01:03 36.6 56 16 178/67 (104) 95 Room Air 02/11/18 00:01 95 Room Air 1.0 02/10/18 20:12 36.7 62 20 150/58 (88) 90 Room Air 02/10/18 20:00 93 Room Air 02/10/18 17:30 197/72 (113) 02/10/18 16:00 Room Air 02/10/18 15:50 36.7 58 20 179/65 (103) 93 Room Air 02/10/18 12:04 36.8 62 20 145/57 (86) 94 Room Air 02/10/18 12:00 Room Air 02/10/18 08:03 36.8 79 20 176/62 (100) 96 Room Air 02/10/18 08:00 Room Air Physical Exam General Appearance: WD/WN, + mild distress Neck: supple, no JVD Respiratory/Chest: chest non-tender, lungs clear, normal breath sounds Cardiovascular: regular rate, rhythm, no murmur Abdomen: normal bowel sounds, soft, + tenderness Extremities: no pedal edema, no calf tenderness Neurologic/Psychiatric: alert, oriented x 3 Laboratory Results Last 24 Hours Test 02/10/18 12:48 Troponin I 0.109 ng/ml Assessment and Plan 82 y/oF with abd pain N/V elevated blood pressure and with elevated troponin on presentation, with PMHx of HTN, HLD, and GERD Elevated troponin:EKG w/out acute changes however has LBBB making it difficult to interpret Troponin has mild rise now with concern for type 2 mi but not nstemi, cardiology consult concurs and agrees with starting B gissell. echo shows preserved EF and some ventricular hypertrophy. troponin has not trended upward, if needs stress in pt or outpt, will need nuclear Persantine stress as has LBBB - Continue ASA, lipitor HTN urgency- titrating metoprolol, resuming losartan Abdominal pain, nausea, h/o GERD:this recurred the evening of 02/10 pt had GI cocktail and carafate, no changes in LFT and lipase with h/o mechelle -Ct evaluation has been unremarkable, Chest abdomen and pelvis -GI medicine had performed EGD and dialation, mild gastritis was seen and biopsied HLD: Continue Lipitor Osteoarthritis: Hold Celebrex BID as gastritis was seen DVT prophylaxis: Heparin SQ TID Code status: LEVEL V, DNR Dispo: From home, lives w/ - PT/OT and CM consulted
[2018-02-11 07:58] LABS: HEMATOCRIT 37.5 % (37-47); HEMOGLOBIN 12.9 g/dL (12.0-16.0); MEAN CORPUSCULAR HEMOGLOBIN 29.9 pg (25-34); MEAN CORPUSCULAR HGB CONC 34.4 g/dl (32-36); MEAN PLATELET VOLUME 10.6 fL (7.4-10.4); PLATELET COUNT 204 K/uL (130-400); RED CELL DISTRIBUTION WIDTH CV 13.1 % (11.5-14.5); RED CELL DISTRIBUTION WIDTH SD 42.1 fL (36.4-46.3); WHITE BLOOD COUNT 8.96 K/uL (4.8-10.8)
[2018-02-11 08:19] LABS: ALBUMIN 3.4 gm/dl (3.4-5.0); CALCIUM 8.7 mg/dl (8.5-10.1); CREATININE 0.89 mg/dl (0.60-1.20); POTASSIUM 3.1 mmol/L (3.5-5.1)
[2018-02-11 08:27] LABS: TOTAL PROTEIN 6.8 gm/dl (6.4-8.2)
[2018-02-11] MEDS: PANTOprazole INJ 40 MG in SYRINGE 0 ML IV SCH ×2 (08:39→20:44)
[2018-02-11] MEDS: SUCRALFATE 1 GM TAB PO SCH ×5 (08:40→20:42)
[2018-02-11] MEDS: POLYETHYLENE (MIRALAX) 17 GM PACK PO SCH (09:00)
[2018-02-11] MEDS: ASPIRIN 81 MG ECTAB PO SCH (09:00)
[2018-02-11] MEDS: METOPROLOL TARTRATE 25 MG TAB PO SCH ×2 (10:58→20:45)
[2018-02-11] MEDS: MULTIVITAMIN TAB PO SCH (10:58)
[2018-02-11] MEDS: CALCIUM 600MG + VIT D 400 IU TAB PO SCH (10:59)
[2018-02-11] MEDS: LOSARTAN POTASSIUM 25 MG TAB PO SCH (10:59)
--- NOTE | 2018-02-11 11:49 | Gastrointestinal Consultation ---
Gastrointestinal Consultation Date of Consultation: February 11, 2018 Attending Physician: Dr. Mendoza Consulting Physician: Dr. Alexandra/OFE Campbell Reason for Consultation: Nausea with vomiting, abdominal pain and abdominal pain History of Present Illness Patient is a 82 year old female with a history of GERD, esophageal stenosis and small hiatus hernia admitted with diffuse abdominal pain and nausea with vomiting. She did have a negative cardiopulmonary work up which was prompted by a slightly elevated troponin but no acute process if felt by cardiology. Since admission, she has been treated with acid suppressive therapy, GI cocktail and Carafate. In doing so, she has had resolution of abdominal pain but reports persistent nausea and now chest pain. She states she "cannot eat". She did have an upper endoscopy last year by Dr. Alexandra with esophageal dilation. Patient remains hemodynamically stable and is without dysphagia or odynophagia. She also denies any overt GI bleeding. No alcohol, tobacco or NSAID use. No palpitations, shortness of breath or cough. No other complaints. Past Medical/Surgical History Medical Problems: (1) Abdominal pain Status: Acute (2) Abdominal pain Status: Acute (3) Constipation Status: Acute (4) Elevated troponin Status: Acute (5) Hypertension Status: Acute (6) Urinary retention Status: Acute Past Medical History: 1. Hypertension 2. Hyperlipidemia 3. GERD 4. Osteoarthritis 5. Esophageal stenosis 6. Sliding H/H Past Surgical History: 1. Bilateral knee replacement 2. Spine surgery 3. Bilateral carpal tunnel syndrome 4. Cataract surgery 5. Cholecystectomy 6. Breast lumpectomy 7. Thyroid surgery 8. Anal fistulotomy 9. Tonsillectomy 10. Hysterectomy 11. EGD with dilation Family History Patient reports no known family medical history. Negative for GI malignancy and IBD Social History Smoking Status: Never Smoker Alcohol Use: none Drug Use: none Marital Status: Housing Status: lives with significant other Occupation Status: retired Allergies Coded Allergies: Omeprazole (Verified Allergy, Intermediate, RASH , 02/08/18) Adhesives (Verified Allergy, Unknown, RASH, 02/08/18) Erythromycin (Unverified Allergy, Unknown, PER PCP NOTE- ?REACTION, ) Latex1 -Allergic Contact Dermititis (Verified Allergy, Unknown, rash, 02/09) Penicillins (Verified Allergy, Unknown, RASH / LYMPHADENOPATHY, 02/08/18) Current Medications Home Meds and Scripts Medications Dose Route/Sig Max Daily Dose Days Date Category Dose Instructions Zantac (Ranitidine HCl) 150 Mg Tab 150 Mg PO HS 03/04/17 Reported Os-Brijesh 500 Plus D (Calcium/Vitamin D) Tab 1 Tab PO QAM 03/04/17 Reported CeleBREX (Celecoxib) 200 Mg Cap 200 Mg PO BID 03/04/17 Reported Aspirin Ec (Aspirin) 81 Mg Tab 81 Mg PO QAM 10/14/15 Reported Multivitamin (Multivitamins) Tab 1 Tab PO QAM 03/21/14 Reported Hyzaar 12.5MG/100MG (Hctz/Losartan) 1 Tab Tab 1 Tab QAM 12/11/12 Reported DOSE OF 100/25MG Protonix (Pantoprazole Sodium) 40 Mg Tab 40 Mg PO BID 10/22/08 Reported Lipitor (Atorvastatin Calcium) 40 Mg Tab 40 Mg PO QPM 10/22/08 Reported Review of Systems Constitutional: + fatigue, No fever, No chills Eyes: No problem reported ENT: + see HPI Respiratory: + see HPI Cardiac: + see HPI Abdomen: + see HPI Musculoskeletal: No problem reported Female : No problem reported Neuro: No problem reported Psych: No problem reported Skin: No problem reported Physical Exam Date Time Temp Pulse Resp B/P (MAP) Pulse Ox O2 Delivery O2 Flow Rate FiO2 02/11/18 08:00 Room Air 02/11/18 07:04 36.8 60 16 171/59 (96) 96 2.0 02/11/18 04:00 95 Room Air 02/11/18 03:42 36.6 60 16 177/67 (103) 95 02/11/18 01:03 36.6 56 16 178/67 (104) 95 Room Air 02/11/18 00:01 95 Room Air 1.0 02/10/18 20:12 36.7 62 20 150/58 (88) 90 Room Air 02/10/18 20:00 93 Room Air 02/10/18 17:30 197/72 (113) 02/10/18 16:00 Room Air 02/10/18 15:50 36.7 58 20 179/65 (103) 93 Room Air 02/10/18 12:04 36.8 62 20 145/57 (86) 94 Room Air 02/10/18 12:00 Room Air General Appearance: WD/WN, no apparent distress Eyes: EOMI ENT: hearing grossly normal Neck: supple Respiratory/Chest: lungs clear, normal breath sounds, no respiratory distress Cardiovascular: regular rate, rhythm Abdomen: normal bowel sounds, non tender, soft Extremities: no pedal edema Neurologic/Psych: alert, normal mood/affect, oriented x 3 Skin: warm/dry Laboratory Results Last 24 Hours Test 02/10/18 12:48 02/11/18 07:19 02/11/18 07:42 Troponin I 0.109 ng/ml 0.080 ng/ml Bedside Glucose 130 mg/dl White Blood Count 8.96 K/uL Red Blood Count 4.31 M/uL Hemoglobin 12.9 g/dL Hematocrit 37.5 % Mean Corpuscular Volume 87.0 fL Mean Corpuscular Hemoglobin 29.9 pg Mean Corpuscular Hemoglobin Concent 34.4 g/dl RDW Standard Deviation 42.1 fL RDW Coefficient of Variation 13.1 % Platelet Count 204 K/uL Mean Platelet Volume 10.6 fL Sodium Level 139 mmol/L Potassium Level 3.1 mmol/L Chloride Level 102 mmol/L Carbon Dioxide Level 29 mmol/L Anion Gap 8.0 mmol/L Blood Urea Nitrogen 17 mg/dl Creatinine 0.89 mg/dl Est Creatinine Clear Calc Drug Dose 52.9 ml/min Estimated GFR () 69.0 Estimated GFR (Non- 59.5 BUN/Creatinine Ratio 19.5 Random Glucose 122 mg/dl Calcium Level 8.7 mg/dl Total Bilirubin 0.8 mg/dl Aspartate Amino Transf (AST/SGOT) 24 U/L Alanine Aminotransferase (ALT/SGPT) 30 U/L Alkaline Phosphatase 104 U/L Total Protein 6.8 gm/dl Albumin 3.4 gm/dl Globulin 3.4 gm/dl Albumin/Globulin Ratio 1.0 Lipase 49 U/L Impression Patient is a 82 year old female admitted with nausea with vomiting and abdominal pain refractory to acid suppressive therapy and GI cocktail. Plan 1. EGD with Dr. Alexandra today. 2. Keep NPO. 3. Continue Pantoprazole 40 mg BID, Ranitidine 150 mg BID and Carafate 1 g ACHS. 4. Additional recommendations pending results of testing. Thank you for allowing us to participating the care of this pleasant patient. If you have any questions or concerns, please do not hesitate to contact us. Agree with OFE Campbell as above Abd: Soft, NT, ND, +BS Continue current therapy EGD today
[2018-02-11] MEDS: POTASSIUM CHLORIDE INJ 40 MEQ in SODIUM CHLORIDE 0.9% 1000ML 1,000 ML IV SCH ×2 (13:03→23:25)
--- NOTE | 2018-02-11 13:07 | CARDIOLOGY PROGRESS NOTE ---
DATE: 02/11/2018 TIME: 12:32 p.m. SUBJECTIVE: She does not feel well. She has continued nausea all morning. She had some dry heaving as well. She denies chest pain, syncope, near syncope, palpitations or shortness of breath. She has not been eating because she does not feel well. OBJECTIVE: VITAL SIGNS: Temperature is 36.8 degrees, heart rate 60 beats per minute, respiration rate 16, blood pressure 171/59 mmHg, oxygen saturation 96% on 2 liters per nasal cannula. I's and O's positive 1.3 liters. Weight 98.7 kg. GENERAL: In no acute distress. She is alert. NECK: No JVD. CARDIAC EXAM: No ventricular heave. Regular, normal S1, S2. There were no audible murmurs, rubs or gallops. LUNGS: Crackles at the bases, but they improved after coughing. ABDOMEN: Soft, nontender, nondistended. Normoactive bowel sounds. EXTREMITIES: No cyanosis or pitting edema. PSYCHIATRIC: Affect appears appropriate. MEDICATIONS: Include aspirin 81 mg daily, Lipitor 40 mg daily, heparin 5,000 units subQ q. 8 hours, metoprolol tartrate 25 mg p.o. b.i.d., losartan 25 mg starting this morning, Protonix 40 mg IV b.i.d., potassium chloride and normal saline, Zantac 150 mg daily, Carafate 1 g p.o. q.i.d. LABORATORY DATA: White blood cell count is 8.96, hemoglobin 12.9, platelets 204. Sodium 139, potassium 3.1, BUN 17, creatinine 0.89. Troponin continues to trend down 0.08. Telemetry personally reviewed. No arrhythmia. ECG personally reviewed from 02/11/2018, normal sinus rhythm, 60 BPM, left bundle-branch block. ASSESSMENT AND PLAN: 1. Elevated troponins: She did not present with acute coronary syndrome. She did not rule in for myocardial infarction. Likely related to severe hypertension upon presentation also in the setting of severe hypertrophy of the basal septum/anteroseptum. Beta gissell has been initiated. Can continue. Could consider outpatient myocardial perfusion study. She prefers to follow up with Dr. 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 2. Nausea/abdominal pain: Likely GI in etiology. GI consultation has been done and there is plan for EGD. 3. Hypertension: Blood pressure remains elevated. Losartan was restarted by primary service. She will likely require higher dosing as she was on higher doses at home. Would titrate for blood pressure control. 4. Systolic anterior motion of the mitral leaflet with mild regurgitation: There was no obvious obstruction noted on echocardiogram. Agree with beta gissell. She appears to be well beta blocked with heart rates in the upper 50s to lower 60s. 5. Disposition: Cardiology will sign off at this time. Please call with any questions or concerns. She would like to follow up with Dr. Montes upon discharge. The patient's care has been discussed with Dr. Mendoza at the primary hospitalist service.
[2018-02-11] MEDS ORDERED: PROPOFOL IV EMULSION 10 MG/ML 20 ML VIAL ONE (14:19)
[2018-02-11] MEDS ORDERED: LIDOCAINE HCL 2% 2 ML VIAL (20MG/ML) ONE (14:19)
--- NOTE | 2018-02-11 14:25 | GI REPORT ---
Patient Name: Karine Aranda Procedure Date: 02/11/2018 1:42 PM Date of : 1935 Admit Type: Inpatient Age: 82 Gender: Female Attending MD: Jean-Pierre Alexandra DO Procedure: Upper GI endoscopy Providers: Jean-Pierre Alexandra DO Referring MD: Slade Mendoza Indications: Suspected stenosis of the esophagus, Nausea Medicines: Monitored Anesthesia Care Complications: No immediate complications. Estimated Blood Loss: Estimated blood loss: none. Procedure: Pre-Anesthesia Assessment: - Prior to the procedure, a History and Physical was performed, and patient medications and allergies were reviewed. The patient's tolerance of previous anesthesia was also reviewed. The risks and benefits of the procedure and the sedation options and risks were discussed with the patient. All questions were answered, and informed consent was obtained. Prior Anticoagulants: The patient has taken aspirin, last dose was 2 days prior to procedure. ASA Grade Assessment: III - A patient with severe systemic disease. After reviewing the risks and benefits, the patient was deemed in satisfactory condition to undergo the procedure. After obtaining informed consent, the endoscope was passed under direct vision. Throughout the procedure, the patient's blood pressure, pulse, and oxygen saturations were monitored continuously. The scope was introduced through the mouth, and advanced to the second part of duodenum. The upper GI endoscopy was accomplished without difficulty. The patient tolerated the procedure well. Findings: One benign-appearing, intrinsic stenosis was found. This stenosis was mildly severe and measured 1.6 cm (inner diameter) x 1 cm (in length). The stenosis was traversed. A TTS dilator was passed through the scope. Dilation with a 15-16.5-18 mm balloon and an 18-19-20 mm balloon dilator was performed to 20 mm. The dilation site was examined and showed no change. A small hiatal hernia was present. Localized moderate inflammation characterized by erythema was found in the gastric antrum. Biopsies were taken with a cold forceps for histology. The examined duodenum was normal. Impression: - Benign-appearing esophageal stenosis. Dilated. - Small hiatal hernia. - Gastritis. Biopsied. - Normal examined duodenum. Recommendation: - Resume previous diet. - Continue present medications. - Await pathology results. - Return to primary care physician as previously scheduled. Jean-Pierre Alexandra DO 02/11/2018 2:25:31 PM This report has been signed electronically. Note Initiated On: 02/11/2018 1:42 PM Number of Addenda: 0 I attest to the content of the Intraoperative Record and orders documented therein, exceptions below {[id number]}
--- NOTE | 2018-02-11 14:40 | Anesthesiology Progress Note ---
Anesthesia Post Op Note Date & Time February 11, 2018 at 14:39 Vital Signs Pain Intensity: 0 Vital Signs Past 12 Hours Date Time Temp Pulse Resp B/P (MAP) Pulse Ox O2 Delivery O2 Flow Rate FiO2 02/11/18 14:24 56 24 138/81 (100) 96 Room Air 02/11/18 13:27 37 61 22 166/68 (100) 94 Room Air 02/11/18 12:00 Room Air 02/11/18 12:00 36.8 57 18 122/53 (76) 95 Nasal Cannula 2.0 02/11/18 08:00 Room Air 02/11/18 07:04 36.8 60 16 171/59 (96) 96 2.0 02/11/18 04:00 95 Room Air 02/11/18 03:42 36.6 60 16 177/67 (103) 95 Notes Mental Status: alert / awake / arousable, participated in evaluation Pt Amnestic to Procedure: Yes Nausea / Vomiting: adequately controlled Pain: adequately controlled Airway Patency, RR, SpO2: stable & adequate BP & HR: stable & adequate Hydration State: stable & adequate Anesthetic Complications: no major complications apparent
[2018-02-11] MEDS ORDERED: PROMETHAZINE HCL INJ 12.5 MG in SODIUM CHLORIDE 0.9% 50ML 50 ML IV PRN (18:00)
[2018-02-11] MEDS ORDERED: LORAZEPAM 2 MG/ML 1 ML VIAL IV PRN (18:00)
[2018-02-11] MEDS ORDERED: LORAZEPAM 0.5 MG TAB PO PRN (18:00)
[2018-02-11] MEDS ORDERED: LORAZEPAM INJ 0.5 MG in SYRINGE 0.75 ML IV PRN (18:15)
[2018-02-11] MEDS: RANITIDINE HCL 150 MG TAB PO SCH (20:43)
[2018-02-11] MEDS: ATORVASTATIN 40 MG TAB PO SCH (20:43)
[2018-02-12] VITALS (11 sets, daily range): BP systolic 148–193; BP diastolic 49–70; PULSE 51–90; TEMP 36.7–36.9; O2SAT 91–92
[2018-02-12 05:54] LABS: HEMOGLOBIN 12.4 g/dL (12.0-16.0); MEAN CORPUSCULAR HEMOGLOBIN 30.3 pg (25-34); MEAN CORPUSCULAR HGB CONC 34.4 g/dl (32-36); MEAN PLATELET VOLUME 11.3 fL (7.4-10.4); PLATELET COUNT 191 K/uL (130-400); RED CELL DISTRIBUTION WIDTH CV 13.3 % (11.5-14.5); WHITE BLOOD COUNT 8.47 K/uL (4.8-10.8)
[2018-02-12] MEDS: HEPARIN SOD 5000 UNIT/0.5 ML CARP SQ SCH ×3 (06:24→20:38)
[2018-02-12] MEDS: POLYETHYLENE (MIRALAX) 17 GM PACK PO SCH (09:00)
[2018-02-12] MEDS: METOPROLOL TARTRATE 25 MG TAB PO SCH ×2 (09:22→20:37)
[2018-02-12] MEDS: SUCRALFATE 1 GM TAB PO SCH ×4 (09:22→20:35)
[2018-02-12] MEDS: MULTIVITAMIN TAB PO SCH (09:22)
[2018-02-12] MEDS: PANTOprazole INJ 40 MG in SYRINGE 0 ML IV SCH ×2 (09:22→20:35)
[2018-02-12] MEDS: CALCIUM 600MG + VIT D 400 IU TAB PO SCH (09:22)
[2018-02-12] MEDS: ASPIRIN 81 MG ECTAB PO SCH (09:22)
[2018-02-12] MEDS: POTASSIUM CHLORIDE INJ 40 MEQ in SODIUM CHLORIDE 0.9% 1000ML 1,000 ML IV SCH ×2 (09:23→20:19)
[2018-02-12] MEDS: LOSARTAN POTASSIUM 25 MG TAB PO SCH (09:23)
--- NOTE | 2018-02-12 11:12 | Progress Note ---
Subjective Date of Service: February 12, 2018. Subjective pt feels much better is willing to try to eat, we did discuss about her abdomen and gastritis also with pending pathology from stomach biopsy Problem List Medical Problems: (1) Abdominal pain Status: Acute (2) Abdominal pain Status: Acute (3) Constipation Status: Acute (4) Elevated troponin Status: Acute (5) Hypertension Status: Acute (6) Urinary retention Status: Acute Review of Systems Constitutional: No fever, No chills, No weakness, No fatigue Respiratory: No cough, No shortness of breath Cardiac: No chest pain, No edema Abdomen: No pain, No nausea, No vomiting Female : No dysuria, No urinary frequency, No hematuria Psychiatric: No depression symptoms, No anhedonism Objective Vital Signs Date Time Temp Pulse Resp B/P (MAP) Pulse Ox O2 Delivery O2 Flow Rate FiO2 02/12/18 07:09 36.9 51 18 158/58 (91) 92 Room Air 02/12/18 04:46 36.7 63 20 162/57 (92) 91 Room Air 02/12/18 04:00 91 Room Air 02/12/18 00:05 36.9 90 19 151/51 (84) 91 Room Air 02/12/18 00:01 91 Room Air 02/11/18 20:00 94 Room Air 02/11/18 19:29 36.6 70 18 145/47 (79) 94 Room Air 02/11/18 16:00 Room Air 02/11/18 15:29 36.6 55 18 180/62 (101) 92 Room Air 02/11/18 14:54 57 24 177/72 (107) 94 Room Air 02/11/18 14:39 53 24 173/84 (113) 94 Room Air 02/11/18 14:24 56 24 138/81 (100) 96 Room Air 02/11/18 13:27 37 61 22 166/68 (100) 94 Room Air 02/11/18 12:00 Room Air 02/11/18 12:00 36.8 57 18 122/53 (76) 95 Nasal Cannula 2.0 Physical Exam General Appearance: WD/WN, + mild distress Eyes: normal inspection, sclerae normal Neck: supple, no JVD Respiratory/Chest: chest non-tender, lungs clear, normal breath sounds Cardiovascular: regular rate, rhythm, no murmur Abdomen: normal bowel sounds, non tender, soft Extremities: no pedal edema, no calf tenderness Neurologic/Psychiatric: alert, oriented x 3 Laboratory Results Last 24 Hours Test 02/12/18 05:17 White Blood Count 8.47 K/uL Red Blood Count 4.09 M/uL Hemoglobin 12.4 g/dL Hematocrit 36.0 % Mean Corpuscular Volume 88.0 fL Mean Corpuscular Hemoglobin 30.3 pg Mean Corpuscular Hemoglobin Concent 34.4 g/dl RDW Standard Deviation 43.0 fL RDW Coefficient of Variation 13.3 % Platelet Count 191 K/uL Mean Platelet Volume 11.3 fL Assessment and Plan 82 F with abd pain N/V elevated blood pressure and with elevated troponin on presentation, with PMHx of HTN, HLD, and GERD Elevated troponin:EKG w/out acute changes however has LBBB making it difficult to interpret Troponin has mild rise now with concern for type 2 mi but not nstemi, cardiology consult concurs and agrees with starting B gissell. echo shows preserved EF and some ventricular hypertrophy. troponin has not trended upward, if needs stress in pt or outpt, will need nuclear Persantine stress as has LBBB - Continue ASA, lipitor HTN urgency-resolved with metoprolol, resuming losartan Abdominal pain, nausea, h/o GERD:this recurred the evening of 02/10 pt had GI cocktail and carafate, no changes in LFT and lipase with h/o mechelle -Ct evaluation has been unremarkable, Chest abdomen and pelvis -GI medicine had performed EGD and dialation, mild gastritis was seen and biopsied, clinically has been improving and will advance diet HLD: Continue Lipitor Osteoarthritis: Hold Celebrex BID as gastritis was seen DVT prophylaxis: Heparin SQ TID Code status: LEVEL V, DNR Dispo: From home, lives w/ -plans on return home
[2018-02-12] MEDS: ALUMINUM/MAGNESIUM/SIMETH (MAALOX MAX) 30 ML UDC PO PRN (17:25)
[2018-02-12] MEDS: HydrALAZINE HCL 20 MG/ML VIAL IV. PRN (17:26)
[2018-02-12] MEDS: ONDANSETRON INJ 2 MG/ML 2 ML VIAL IV PRN (19:40)
[2018-02-12] MEDS: RANITIDINE HCL 150 MG TAB PO SCH (20:35)
[2018-02-12] MEDS: ATORVASTATIN 40 MG TAB PO SCH (20:35)
[2018-02-13] VITALS (11 sets, daily range): BP systolic 121–174; BP diastolic 48–62; PULSE 51–75; TEMP 36.4–37.1; O2SAT 91–95
[2018-02-13] MEDS: POTASSIUM CHLORIDE INJ 40 MEQ in SODIUM CHLORIDE 0.9% 1000ML 1,000 ML IV SCH ×2 (05:23→15:32)
[2018-02-13] MEDS: ONDANSETRON INJ 2 MG/ML 2 ML VIAL IV PRN (05:23)
[2018-02-13] MEDS: HEPARIN SOD 5000 UNIT/0.5 ML CARP SQ SCH ×3 (05:24→21:33)
[2018-02-13] MEDS ORDERED: LPR25 PO (07:33)
[2018-02-13] MEDS ORDERED: SUCR1TAB PO (07:33)
--- NOTE | 2018-02-13 07:37 | Discharge Instructions ---
Discharge Instructions Date of Service February 13, 2018. Admission Reason for Admission: Chest Pain, Hypertensive Urgency Discharge Discharge Diagnosis / Problem: non typical chest pain, esophageal stricture, esophageal reflux Discharge Goals Goal(s): Diagnostic testing, Therapeutic intervention Activity Recommendations Activity Limitations: as noted below Lifting Limitations: gradually increase as tolerated Dr Lockhart, the training professional feels it is beneficial to have a new medicine metoprolol started You will have Carafate(sucralfate) for 5 days Please follow up with Dr Marina in about a week . Current Hospital Diet Patient's current hospital diet: Regular Diet Discharge Diet Recommended Diet: AHA Diet (Heart Healthy) (consider slippery foods ) Procedures Procedures Performed: EGD WITH BX AND DILATION Pending Studies Studies pending at discharge: yes List of pending studies: pathology report from gastric biospy Medical Emergencies . Who to Call and When: Medical Emergencies: If at any time you feel your situation is an emergency, please call 911 immediately. . Non-Emergent Contact Non-Emergency issues call your: Primary Care Provider, [employer] Molder Call Non-Emergent contact if: temperature is above 101, your pain is not controlled . . "Provider Documentation" section prepared by Slade Mendoza. .
[2018-02-13] MEDS: PANTOprazole INJ 40 MG in SYRINGE 0 ML IV SCH ×2 (08:39→21:27)
[2018-02-13] MEDS: POLYETHYLENE (MIRALAX) 17 GM PACK PO SCH (08:39)
[2018-02-13] MEDS: LOSARTAN POTASSIUM 25 MG TAB PO SCH (08:40)
[2018-02-13] MEDS: ASPIRIN 81 MG ECTAB PO SCH (08:40)
[2018-02-13] MEDS: MULTIVITAMIN TAB PO SCH (08:40)
[2018-02-13] MEDS: CALCIUM 600MG + VIT D 400 IU TAB PO SCH (08:40)
[2018-02-13] MEDS: SUCRALFATE 1 GM TAB PO SCH ×4 (08:40→21:28)
[2018-02-13] MEDS: METOPROLOL TARTRATE 25 MG TAB PO SCH ×2 (08:41→21:29)
--- NOTE | 2018-02-13 11:46 | Progress Note ---
Subjective Date of Service: February 13, 2018. Subjective this pt continues with waxing and waining chest pain symptoms, usually at rest, not associated with eating, with known underlying esophageal stricture and some gastritis, despite maximal therapy for this the pt remains with significant pain and associated nausea and anorexia Problem List Medical Problems: (1) Abdominal pain Status: Acute (2) Abdominal pain Status: Acute (3) Constipation Status: Acute (4) Elevated troponin Status: Acute (5) Hypertension Status: Acute (6) Urinary retention Status: Acute Review of Systems Constitutional: + weakness, + fatigue, No fever, No chills Respiratory: No cough, No shortness of breath Cardiac: + chest pain, No edema Abdomen: + pain, + nausea, No vomiting, No diarrhea, No constipation Female : No dysuria, No urinary frequency Neurologic: No memory loss, No paralysis Psychiatric: + anxiety, No depression symptoms Objective Vital Signs Date Time Temp Pulse Resp B/P (MAP) Pulse Ox O2 Delivery O2 Flow Rate FiO2 02/13/18 08:00 Room Air 02/13/18 06:47 37.1 61 18 174/56 (95) 95 Room Air 02/13/18 04:23 37.1 51 17 166/62 (96) 93 Room Air 02/13/18 04:00 Room Air 02/13/18 00:24 36.6 57 19 163/56 (91) 93 Room Air 02/13/18 00:01 91 Room Air 02/12/18 20:00 Room Air 02/12/18 19:20 36.8 58 20 150/49 (82) 91 Room Air 02/12/18 16:00 92 Room Air 02/12/18 15:26 36.9 56 18 193/70 (111) 91 Room Air 02/12/18 12:00 92 Room Air 02/12/18 11:54 36.7 54 19 148/53 (84) 92 Room Air Physical Exam General Appearance: WD/WN, + mild distress Eyes: normal inspection, sclerae normal Respiratory/Chest: chest non-tender, lungs clear, normal breath sounds Cardiovascular: regular rate, rhythm, no murmur Abdomen: normal bowel sounds, non tender, soft Extremities: no pedal edema, no calf tenderness Neurologic/Psychiatric: alert, oriented x 3 Assessment and Plan 82 F with abd pain N/V elevated blood pressure and with elevated troponin on presentation, with PMHx of HTN, HLD, and GERD Elevated troponin:EKG w/out acute changes however has LBBB making it difficult to interpret Troponin has mild rise now with concern for type 2 mi but not nstemi, echo shows preserved EF and some ventricular hypertrophy.since persistent recurrent symptoms will need [place] scan given the LBBB, will continue to speak to cardiology and add meds( dynamed suggests more evidence for sildenafil or trazadone that cacium blockers, will try trazadone as may need nitrates if CP is cardiac) to see if helps esophageal spasm - Continue ASA, lipitor HTN urgency-resolved with metoprolol, resuming losartan Abdominal pain, nausea, h/o GERD:this recurred the evening of 02/10 pt had GI cocktail and carafate, no changes in LFT and lipase with h/o mechelle -Ct evaluation has been unremarkable, Chest abdomen and pelvis -GI medicine had performed EGD and dilation, mild gastritis was seen and biopsied,despite ppi, h2 and carafate still with symptoms advance diet HLD: Continue Lipitor Osteoarthritis: Hold Celebrex BID as gastritis was seen anxiety, pt has significant concerns that she is not getting better, will offer prn ativan DVT prophylaxis: Heparin SQ TID Code status: LEVEL V, DNR Dispo: From home, lives w/ -plans on return home
[2018-02-13] MEDS ORDERED: LORAZEPAM 2 MG/ML 1 ML VIAL IV PRN (12:00)
[2018-02-13] MEDS ORDERED: LORAZEPAM 0.5 MG TAB PO PRN (12:00)
[2018-02-13] MEDS ORDERED: TRAZODONE HCL 50 MG TAB PO PRN (12:00)
[2018-02-13] MEDS ORDERED: LOPERAMIDE HCL 2 MG CAP PO PRN (12:45)
[2018-02-13] MEDS: RANITIDINE HCL 150 MG TAB PO SCH (21:27)
[2018-02-13] MEDS: ATORVASTATIN 40 MG TAB PO SCH (21:28)
[2018-02-14] VITALS (7 sets, daily range): BP systolic 136–176; BP diastolic 51–60; PULSE 59–63; TEMP 36.7–36.9; O2SAT 92–94
[2018-02-14] MEDS: POTASSIUM CHLORIDE INJ 40 MEQ in SODIUM CHLORIDE 0.9% 1000ML 1,000 ML IV SCH ×2 (01:16→12:24)
[2018-02-14] MEDS: HEPARIN SOD 5000 UNIT/0.5 ML CARP SQ SCH ×2 (06:10→13:22)
[2018-02-14] MEDS: CALCIUM 600MG + VIT D 400 IU TAB PO SCH (07:52)
[2018-02-14] MEDS: SUCRALFATE 1 GM TAB PO SCH ×3 (07:52→15:52)
[2018-02-14] MEDS: MULTIVITAMIN TAB PO SCH (07:52)
[2018-02-14] MEDS: ASPIRIN 81 MG ECTAB PO SCH (07:53)
[2018-02-14] MEDS: METOPROLOL TARTRATE 25 MG TAB PO SCH (07:53)
[2018-02-14] MEDS: LOSARTAN POTASSIUM 25 MG TAB PO SCH (07:53)
[2018-02-14] MEDS: POLYETHYLENE (MIRALAX) 17 GM PACK PO SCH (07:54)
[2018-02-14] MEDS: PANTOprazole INJ 40 MG in SYRINGE 0 ML IV SCH (09:00)
[2018-02-14 09:14] LABS: HEMATOCRIT 38.7 % (37-47); HEMOGLOBIN 13.1 g/dL (12.0-16.0); MEAN CORPUSCULAR HEMOGLOBIN 30.1 pg (25-34); MEAN CORPUSCULAR HGB CONC 33.9 g/dl (32-36); MEAN PLATELET VOLUME 10.9 fL (7.4-10.4); PLATELET COUNT 196 K/uL (130-400); RED CELL DISTRIBUTION WIDTH CV 13.5 % (11.5-14.5); RED CELL DISTRIBUTION WIDTH SD 43.9 fL (36.4-46.3)
[2018-02-14 09:39] LABS: CALCIUM 8.1 mg/dl (8.5-10.1); CREATININE 0.96 mg/dl (0.60-1.20); POTASSIUM 3.8 mmol/L (3.5-5.1)
--- NOTE | 2018-02-14 12:37 | Clinical Documentation Query ---
ANGELO VALENCIA : CLINICAL VALIDATION QUERY Progress notes since admission have documentation including the following: "Troponin has mild rise now with concern for type 2 mi but not nstemi". Somewhat contradictory to this, cardiology progress notes included ". Elevated troponins: She did not present with acute coronary syndrome. She did not rule in for myocardial infarction. Likely related to severe hypertension upon presentation also in the setting of severe hypertrophy of the basal septum/anteroseptum". Although a type 2 TN is not pathophysiologically related to coronary plaque rupture, the above documentation does render doubt as far as the attending and consulting specialists opinion regarding this matter. Please attempt to clarify as clinically appropriate. Thank you. Please clarify and document your clinical opinion in the progress notes and discharge summary. Terms such as "probable", "suspected", "likely", "questionable", "possible", or "still to be ruled out" are acceptable. IF IN AGREEMENT, YOU MUST DOCUMENT ABOVE DIAGNOSTIC STATEMENT IN DAILY PROGRESS NOTES AND DISCHARGE SUMMARY. This document is not part of the patient's record. Thank You, Rajan Renee, RN [phone]
[2018-02-14] MEDS ORDERED: DSY50 PO (15:56)
[2018-02-14] MEDS ORDERED: CZR25 PO (16:12)
--- NOTE | 2018-02-14 16:18 | Discharge Summary ---
Discharge Summary Date of Service February 14, 2018. Discharge Summary Admission Date: February 09, 2018 at 16:25 Discharge Date: February 13, 2018 Discharge Disposition: Home Principal Diagnosis: hypertensive urgency, Type II OH Problems/Secondary Diagnoses: LBBB, HTN, HLD, Abdominal pain, nausea, h/o GERD, Osteoarthritis Immunizations: Have You Had Influenza Vaccine: Yes Influenza Vaccine Date: Jul 22, 2008 History of Tetanus Vaccine?: Yes Tetanus Immunization Date: Oct 22, 1997 History of Pneumococcal: Yes Pneumococcal Date: Oct 22, 2003 History of Hepatitis B Vaccine: No Procedures: (CHEST FOR PE) ANGIO WITH CT DOSE: 548.62 mGycm HISTORY: 82 years-old Female presents with acute atypical chest pain with elevated troponin TECHNIQUE: Multiple CTA images of the chest were obtained after the intravenous administration of 113 ml Optiray 320. Coronal and sagittal MIPS were obtained from the axial data set and were submitted for review. A dose lowering technique was utilized adhering to the principles of ALARA. COMPARISON: CT abdomen and pelvis 02/08/2018. FINDINGS: CTA: Mild multichamber cardiac enlargement. No pericardial effusion. No significant coronary arterial calcifications are identified. Thoracic aorta is normal in course and caliber without aneurysm or dissection. The imaged great vessels appear to be patent. Mild kinking about the right subclavian artery without high-grade stenosis identified. No significant atherosclerotic plaquing of the aorta. The pulmonary arterial tree is opacified to level of the segmental branches and demonstrates no focal filling defects to suggest pulmonary thromboembolic disease. The subsegmental branches are not well-seen secondary to contrast bolus timing and respiratory motion. CT CHEST: Heterogeneous thyroid. Mildly enlarged. No pathologically enlarged lymph nodes about the chest identified. Surgical clips about the right axilla suggest prior right axillary yvette dissection. There is no pneumothorax, pleural effusion or lobar airspace consolidation. Linear subsegmental consolidative opacities about the lung bases suggest areas of scarring/atelectasis. There are no suspicious pulmonary nodules or masses identified. Mild bilateral bronchial wall thickening. Central airways appear clear. Prior cholecystectomy. No acute process of the imaged upper abdomen. Small sliding-type hiatal hernia. Mild thickening about the bilateral adrenal glands appears unchanged. Soft tissues are unremarkable. Calcifications about the bilateral breasts. The bones appear intact. Degenerative changes of the shoulders and spine are noted. IMPRESSION: 1. No acute intrathoracic abnormality identified, specifically no acute aortic pathology or evidence of pulmonary thromboembolic disease. 2. No pathologic adenopathy or lobar airspace consolidation. 3. Small sliding-type hiatal hernia. 4. Prior cholecystectomy. Electronically signed by: Cameron Martinez M.D. 02/09/2018 3:20 PM Consultations: Dr. Lockhart from cardiology, Dr. Alexandra from GI Medication Reconciliation New Medications: Metoprolol Tartrate (Lopressor) 25 Mg Tab 25 MG PO BID, #60 TAB 5 Refills Sucralfate (Sucralfate) 1 Gm Tab 1 GM PO QID, #20 TAB Trazodone HCl (Trazodone HCl) 50 Mg Tab 25 MG PO BID PRN for esophageal spasm for 30 Days, #60 TAB Continued Medications: Aspirin (Aspirin Ec) 81 Mg Tab 81 MG PO QAM Atorvastatin (Lipitor) 40 Mg Tab 40 MG PO QPM, 0 Refills Calcium/Vitamin D (Os-Brijesh 500 Plus D) Tab 1 TAB PO QAM, TAB Hctz/Losartan (Hyzaar 12.5MG/100MG) 1 Tab Tab 1 TAB QAM DOSE OF 100/25MG Multivitamin (Multivitamin) Tab 1 TAB PO QAM, TAB Pantoprazole (Protonix) 40 Mg Tab 40 MG PO BID, #30 0 Refills Ranitidine (Zantac) 150 Mg Tab 150 MG PO HS, TAB Discontinued Medications: Celecoxib (CeleBREX) 200 Mg Cap 200 MG PO BID, CAP Discharge Exam ROS Constitutional: no chills, aches, sweats or fever Respiratory: no sob,cough, sputum, or wheezing Cardiac: no chest pain, palpitations, edema, orthopnea or lightheadedness GI: no abdominal pain, nausea, vomiting, diarrhea or constipation : no dysuria or hesitancy Extremities: no joint pain or weakness Skin: no rash All other systems reviewed and negative Ms. Aranda has had no further chest pain or nausea today PE General: no distress Eyes: normal inspection, PERLL Respiratory: chest non tender, clear to auscultation, normal breath sounds, no respiratory distress, no accessory muscle use Cardiac: regular rate and rhythm, no rub or gallop, no murmur, no edema, no jvd GI/: active bowel sounds, no abd pain or tenderness, soft, non distended Extremities: normal range of motion, normal strength, non tender Neuro/Psych: alert and oriented x 3, normal mood and affect Skin: normal color, dry Hospital Course Patient is a pleasant 82 y/o female, with PMHx of HTN, HLD, and GERD, who presented to the ED because of persistent abdominal pain and worsening nausea/ dry heaving x2 days. Patient was seen in ED 2 days prior - abdominal CT was unremarkable for acute findings. She had been unable to eat/drink or take any of her medications so she proceeded to the ED. She also admitted to central/L- sided chest pain. Elevated troponin, Type II OH - monitored on tele - EKG w/out acute changes however has LBBB made it difficult to interpret - Troponin had mild rise and peaked 0.108 - likely associated with hypertension on admission - echo shows preserved EF and some ventricular hypertrophy - since persistent recurrent symptoms will need [place] scan given the LBBB - cardiology consulted - signed off at this point - Trazadone for esophageal spasm last night and today patient is symptom free - will discharge with bid trazadone prn - Continue ASA, lipitor HTN urgency -resolved with metoprolol - restarted losartan at 25 mg daily, home dose was 100 mg. Will increase to 50 mg daily for discharge as pressures still running somewhat high - dc hctz Abdominal pain, nausea, h/o GERD: - this recurred the evening of 02/10 pt had GI cocktail and carafate, no changes in LFT and lipase with h/o mechelle -Ct evaluation has been unremarkable, Chest abdomen and pelvis -GI consulted and performed EGD and dilation, mild gastritis was seen and biopsied - continue ppi, h2 and carafate - dc Celebrex HLD: Continue Lipitor Osteoarthritis: Hold Celebrex BID as gastritis was seen Supervising Note Dr. Jerez I performed a history and physical examination on the patient. I reviewed above note and agree with it. I discussed plan with APC and patient. During my face to face encounter with the patient, I answered all of the patient's questions. Blood pressure improved. Will add metoprolol BID as outpatient. Total Time Spent: Greater than 30 minutes This includes examination of the patient, discharge planning, medication reconciliation, and communication with other providers. Discharge Instructions Please refer to the electronic Patient Visit Report (Discharge Instructions) for additional information. Follow-Up Dr. Marina within about a week Dr. Alexandra, cardiology Additional Copies To Vic Marina M.D.
== END 2018-02-14 18:35 | disposition home or self-care (01) | DRG 282 ==
LOC: C.EDB 12:43 → C.2E 16:25 → ENRESERV 16:56
PROVIDERS: ADMIT Internal Medicine; ATTEND Internal Medicine Sports Medicine
PROC: 0D758ZZ Dilation of Esophagus, Via Natural or Artificial Opening Endoscopic (ICD-10-PCS; principal; 2018-02-11 13:23)
PROC: 0DB68ZX Excision of Stomach, Via Natural or Artificial Opening Endoscopic, Diagnostic (ICD-10-PCS; principal; 2018-02-11 13:23)
DX: I21.A1 Myocardial infarction type 2 (principal); I16.0 Hypertensive urgency; K22.2 Esophageal obstruction; K44.9 Diaphragmatic hernia without obstruction or gangrene; E78.5 Hyperlipidemia, unspecified; K21.9 Gastro-esophageal reflux disease without esophagitis; I10 Essential (primary) hypertension; R10.9 Unspecified abdominal pain; R11.2 Nausea with vomiting, unspecified; I44.7 Left bundle-branch block, unspecified; Z66 Do not resuscitate; Z79.82 Long term (current) use of aspirin; Z79.899 Other long term (current) drug therapy; Z82.49 Family history of ischemic heart disease and other diseases of the circulatory system; Z88.0 Allergy status to penicillin; Z88.1 Allergy status to other antibiotic agents; Z88.8 Allergy status to other drugs, medicaments and biological substances; Z91.040 Latex allergy status

== ENCOUNTER 2022-11-09 17:41 | Inpatient (IN) ==
--- NOTE | 2022-11-09 17:54 | ED Triage Note ---
Date of Service November 09, 2022 History of Present Illness This patient was briefly evaluated while in triage. An abbreviated physical exam was performed. This patient is a 87-year-old Female who presents to the ED for evaluation of shortness of breath overnight. The patient reports that she had to sit up throughout the night. The patient has had a cold now for the past 4 to 5 days with nonproductive cough. Pulse oximetry at home was around 90%. Patient denies cardiopulmonary history. Patient denies fever. The patient's 1 week, and they were many other people at the home. Daughter reports that she did take a COVID-19 test 2 days ago that was negative for Physical Exam CONSTITUTIONAL: Healthy and well nourished. Patient does not appear in any acute respiratory distress HEENT: No conjunctival injection NECK: Full active range of motion without discomfort. LYMPHATICS: No cervical chain adenopathy. RESPIRATORY: Clear to auscultation bilaterally with no wheezing, crackles, rhonchi or stridor. CARDIOVASCULAR: Regular rate and rhythm with no murmurs, rubs or gallops. MUSCULOSKELETAL: Full range of motion of all joints without discomfort. INTEGUMENTARY: No rash or other significant dermatologic conditions noted. HEMATOLOGIC: No ecchymosis or petechiae. PSYCHIATRIC: Positive affect. NEUROLOGIC: No focal neurologic deficits noted. Initial orders for labs and / or imaging were placed and patient was placed in the waiting area until a bed is available. Please see further documentation for the full ED course.
[2022-11-09 18:22] LABS: Basophils # (auto) 0.02 K/uL (0-0.2); Basophils % (auto) 0.4 %; Eosinophils # (auto) 0.05 K/uL (0-0.50); Eosinophils % (auto) 0.9 %; Hematocrit (blood only) 44.2 % (37.0-47.0); Hemoglobin 15.2 g/dl (12.0-16.0); Immature Granulocytes # (auto) 0.01 K/uL (0.01-0.20); Immature Granulocytes % (auto) 0.2 %; Lymphocytes # (auto) 1.42 K/uL (1.2-3.4); Mean Corpuscular Hemoglobin 31.3 pg (25.0-34.0); Mean Corpuscular Hgb Conc 34.4 g/dL (32.0-36.0); Mean Corpuscular Volume 90.9 fL (80.0-100.0); Mean Platelet Volume 10.9 fL (9.4-12.4); Monocytes # (auto) 0.68 K/uL (0.11-0.59); Neutrophils # (auto) 3.49 K/uL (1.40-6.50); Neutrophils % (auto) 61.5 %; Platelet Count 201 K/uL (130-400); RDW Coefficient of Variation 12.5 % (11.5-14.5); RDW Standard Deviation 41.2 fL (36.4-46.3); Red Blood Count 4.86 M/uL (4.20-5.40); White Blood Count 5.67 K/ul (4.8-10.8)
[2022-11-09 18:40] LABS: Alanine Aminotransferase 12 U/L (7-52); Albumin Globulin Ratio 1.4 (0.9-2); Albumin Level 4.2 gm/dl (3.4-5.0); Alkaline Phosphatase 106 U/L (34-104); Anion Gap 6 (3-11); Aspartate Aminotransferase 18 U/L (13-39); BUN Creatinine Ratio 18.5 (10-20); Bilirubin,Total 0.5 mg/dl (0.2-1.0); Blood Urea Nitrogen 20 mg/dl (6-23); Calcium 9.6 mg/dl (8.5-10.1); Carbon Dioxide 32 mmol/L (21-32); Chloride 102 mmol/L (98-107); Est GFR (African American) 52.7 ml/min; Est GFR (Non-African American) 45.5 ml/min; Globulin 3.1 gm/dl (2.5-4.0); Glucose 108 mg/dl (70-99(Fasting)); Magnesium 1.3 mg/dl (1.7-2.4); Potassium 3.6 mmol/L (3.5-5.1); Sodium 140 mmol/L (136-145); Total Protein 7.3 gm/dl (6.0-8.3)
[2022-11-09 18:43] LABS: Troponin I High Sensitivity 36.4 pg/ml (0-14)
[2022-11-09 18:49] LABS: Partial Thromboplastin Time 27.5 Seconds (21.0-31.0); Prothrombin Time 10.9 Seconds (9.0-12.0)
--- NOTE | 2022-11-09 20:40 | XRay Report ---
SINGLE VIEW CHEST CLINICAL HISTORY: Dyspnea. FINDINGS: An AP, portable, upright chest radiograph is compared to study dated 04/06/2017 and correlat ed with chest CT dated 02/09/2018. The heart is enlarged noting atherosclerotic calcification of the t horacic aorta. The pulmonary vasculature is noncongested. Chronic interstitial thickening is similar to previous. The lungs and pleural spaces are clear noting bibasilar scarring/atelectasis. No pneumot horax is seen. The bony thorax is grossly intact. Advanced arthritic change is seen in the shoulders. Surgical clips are noted in the right axilla. IMPRESSION: Cardiomegaly with no active disease in the chest. ACT 112: Negative or not required by law. Electronically signed by: Radhames Lujan M.D. 11/09/2022 8:39 PM
[2022-11-09 20:50] LABS: Influenza A virus by PCR Negative (Neg); Influenza B virus by PCR Negative (Neg); RSV by PCR Negative (Neg); SARS CoV2 RNA(COVID-19) Ceph NEGATIVE (Negative)
[2022-11-09] MEDS ORDERED: BENZONATATE 100 MG CAPSULE PO ONE (21:19)
[2022-11-09] MEDS ORDERED: ALBUT/IPRATROP 3MG/0.5MG NEB 3 ML VIAL NEB STA (21:19)
[2022-11-09] MEDS ORDERED: SODIUM CHLORIDE 0.9% 1000ML 1,000 ML IV SCH (21:30)
[2022-11-09] MEDS: MAGNESIUM SULFATE / D5W 1 GM/100 ML BAG IV SCH ×2 (21:56→22:14)
--- NOTE | 2022-11-09 21:57 | Emergency Department Note ---
Impression & Plan SOB (shortness of breath), Hypomagnesemia, Elevated troponin, Generalized weakness, URI (upper respiratory infection) ED Provider Note ED Provider Note NAME: JERMAINE ALCAZAR AGE:87 SEX: Female : 1935 ARRIVES VIA: Private vehicle INFORMANT: Patient ED PROVIDER(s): Mitzi Grajeda DO CHIEF COMPLAINT: Cough and cold symptoms, shortness of breath HPI: This is an 87-year-old female who presents emergency department due to concern for worsening cough and cold symptoms, shortness of breath. Patient states she first began feeling ill on Wednesday. She states she presumes she may have caught an illness or URI from people at her 's last weekend. She states he first began with a cough which has been productive of a yellow sputum. She denies any hemoptysis. She denies fevers or chills but notes she has had been increasingly weak and had a decreased appetite. She has been intermittently nauseated without vomiting. No diarrhea. Patient denies any history of asthma or COPD, no prior tobacco abuse. She states she has had some mild chest tightness. She noticed last night she could not lay flat as it worsened her breathing. Daughter states when she came to check on her today they put a pulse ox on her finger and noted it was 90%. PAST MEDICAL HISTORY:See Below PAST SURGICAL HISTORY:See Below FAMILY HISTORY:See Below SOCIAL HISTORY:See Below HOME MEDICATIONS:See Below ALLERGIES:See Below VITALS:See Below PHYSICAL EXAMINATION: GENERAL: alert, well appearing, well nourished, no distress, non-toxic EYE EXAM: normal conjunctiva, PERRL and EOM's grossly intact OROPHARYNX: no exudate, no erythema, lips, buccal mucosa, and tongue normal and mucous membranes are moist NECK: supple, no nuchal rigidity, no adenopathy, non-tender LUNGS: Clear to auscultation. Normal chest wall mechanics, no r/r, faint en expiratory wheeze b/l HEART: no murmurs, S1 normal and S2 normal ABDOMEN: abdomen soft, non-tender, normo-active bowel sounds, no masses, no rebound or guarding. BACK: Back is symmetrical on inspection and there is no deformity, no midline tenderness, no CVA tenderness. SKIN: no rashes, petechiae, orbruising UPPER EXTREMITIES: upper extremities are grossly normal. FROM, nml pulses b/l. LOWER EXTREMITIES: No pitting edema. FROM, nml pulses b/l. NEURO EXAM: Normal sensorium, cranial nerves II-XII grossly intact, normal speech, no facial droop,nogross weakness of arms, no gross weakness of legs. Gross sensation intact. No ataxia. Vital Signs: reviewed and remarkable Differential Diagnosis: Differential diagnoses includes but is not limited to pneumonia, bronchitis, COPD/Asthma exacerbation, pneumothorax, pulmonary embolism, congestive heart failure, acute coronary syndrome MEDICAL DECISION MAKING: THis is an 87 yo female who presents to the ER due to concern for increased SOB and recent URI symptoms. Patient afebrile and VS stable. No pulmonary history in patient. Decreased oral intake due to illness over the last several days. Protocol orders including labs and imaging were reviewed at bedside once patient placed in a room for evaluation. No PNA or pulm edema noted on CXR. Labs revealed low mag and mild troponin elevation. LBBB noted on EKG is old per patient report. Patient started on gentle IVF rehydration. Neb treatment ordered as was IV magnesium for repletion. All results discussed with pt and family at bedside. Case discussed with the hospitalist for additional evaluation. Consultation(s): 2199: Discussed with Dr. Trevino. ER Treatment Provided: See below Diagnostics Interpreted By Me: -ECG: NSR at 89, LBBB, nml axis, no acute ST/T wave changes -Cardiac Monitoring: An order was placed for continuous cardiac monitoring. The monitor shows a rate of 82 with normal sinus rhythm. -Laboratory studies: As stated above and show below. -Imaging studies: [] Triage Nursing Note Reviewed Prior/Outside Records Reviewed Procedures: [] Critical Care: [] Past Med/Surg History Medical History Adhesive capsulitis of shoulder Back pain with sciatica Depression Disc degeneration, lumbar Diverticulosis Dysphagia Esophageal spasm Esophageal stenosis Gastroesophageal reflux disease History of endometrial cancer History of malignant neoplasm of breast Hypercholesterolemia Hyperglycemia Hypertension Irritable bowel syndrome Joint pain in the shoulder/clavicle region Left ankle pain Lichen sclerosus et atrophicus Lumbar spinal stenosis Obesity Osteoarthritis Peripheral edema Sacroiliitis Trochanteric bursitis Ulnar nerve neuropathy Urge incontinence of urine Surgical History History of back surgery History of knee replacement History of surgery anal fistulotomy (subcutaneous) S/P cholecystectomy S/P dilation and curettage S/P lumpectomy of breast S/P thyroid surgery S/P tonsillectomy S/P total abdominal hysterectomy and bilateral salpingo-oophorectomy S/P tubal ligation Status post repair of nerve neuroplasty decompression median nerve at carpal tunnel Family History Aunt Colorectal cancer maternal Mother Cardiac disorder Hypertension Brother Esophageal carcinoma Father Cardiac disorder Hypertension Daughter Breast cancer Denies family history of Ovarian cancer Social History Smoking Status: Never smoker Hx Alcohol Use: No Hx Substance Use: No Preferred Language: Lithuanian Communication Ability: Effective 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 Beliefs That Will Affect Care: None marital status: Current Living Situation: Alone Current Living Situation Comment: daughter visits current occupational status: retired Other Information That Helps Us Care for You: No Feels Safe at Home: Yes Safety Concerns: Feels Safe At This Time Assistive Devices: Cane and Walker Allergies Allergies Allergy/AdvReac Type Severity Reaction Status Date / Time omeprazole Allergy Intermediate RASH Verified 11/09/22 23:01 adhesive Allergy Unknown RASH Verified 11/09/22 23:01 erythromycin base Allergy Unknown PER PCP Verified 11/09/22 23:01 NOTE- ?REACTION latex Allergy Unknown rash Verified 11/09/22 23:01 Penicillins Allergy Unknown RASH / Verified 11/09/22 23:01 LYMPHADENOPATHY Home Meds Home Medications Medication Instructions Recorded Confirmed aspirin 81 mg tablet 81 mg PO DAILY 06/16/19 11/09/22 calcium carbonate 600 mg-vitamin 1 tab PO DAILY 06/16/19 11/09/22 D3 5 mcg (200 unit) tablet triamcinolone acetonide 0.1 % 1 appln topical BID PRN flare ups 06/16/19 11/09/22 topical ointment psyllium seed (sugar) oral powder 1 ea PO BID 04/12/20 11/09/22 (Metamucil (sugar) oral powder) multivitamin 1 tab PO DAILY 11/09/22 11/09/22 Previous Rx's Medication Instructions Recorded losartan 100 1 tab PO DAILY #90 tabs 10/23/21 mg-hydrochlorothiazide 25 mg tablet pantoprazole 40 mg tablet,delayed 40 mg PO BID #180 tabs 08/25/22 release atorvastatin 40 mg tablet 40 mg PO QPM #90 tabs 09/22/22 Results & Data (ED) Vital Signs Vital Signs - 24 hr 11/09/22 17:50 11/09/22 19:55 11/09/22 19:58 Temperature 36.4 C L Temperature Source Temporal Artery Scan Pulse Rate 95 H 88 Pulse Rate [Apical] 87 Pulse Rhythm Regular Pulse Rhythm [Apical] Irregular Respiratory Rate 16 28 H Respiratory Effort / Characteristics Non-Labored Spontaneous Labored Respiratory Depth Normal Blood Pressure 186/84 H Blood Pressure [Left Arm] 200/108 H Blood Pressure Mean 118 Blood Pressure Mean [Left Arm] 138 Pulse Oximetry 97 91 Oxygen Delivery Method Room Air Room Air Oxygen Flow Rate Sepsis Recent Fever Within 48 Hours No Sepsis New/Unexplained Change in Mental Status No Sepsis Action Taken by Nursing No Action Required Oxygen Flow Rate - Titration Pulse Oximetry Post Tiitration 11/09/22 19:59 11/09/22 20:02 11/09/22 20:07 Temperature Temperature Source Pulse Rate Pulse Rate [Apical] 87 Pulse Rhythm Pulse Rhythm [Apical] Respiratory Rate 27 H Respiratory Effort / Characteristics Respiratory Depth Blood Pressure Blood Pressure [Left Arm] 187/91 H Blood Pressure Mean Blood Pressure Mean [Left Arm] 123 Pulse Oximetry 94 96 90 Oxygen Delivery Method Nasal Cannula Nasal Cannula Room Air Oxygen Flow Rate 2 2 0 Sepsis Recent Fever Within 48 Hours Sepsis New/Unexplained Change in Mental Status Sepsis Action Taken by Nursing Oxygen Flow Rate - Titration 2 Pulse Oximetry Post Tiitration 96 11/09/22 21:03 Temperature Temperature Source Pulse Rate Pulse Rate [Apical] 74 Pulse Rhythm Pulse Rhythm [Apical] Respiratory Rate 20 Respiratory Effort / Characteristics Non-Labored Respiratory Depth Normal Blood Pressure Blood Pressure [Left Arm] 184/89 H Blood Pressure Mean Blood Pressure Mean [Left Arm] 120 Pulse Oximetry 96 Oxygen Delivery Method Nasal Cannula Oxygen Flow Rate 2 Sepsis Recent Fever Within 48 Hours Sepsis New/Unexplained Change in Mental Status Sepsis Action Taken by Nursing Oxygen Flow Rate - Titration Pulse Oximetry Post Tiitration Laboratory Data 11/09/22 18:00 11/09/22 18:00 Lab Results 11/09/22 11/09/22 11/09/22 Range/Units 18:00 18:00 18:00 WBC 5.67 (4.8-10.8) K/ul RBC 4.86 (4.20-5.40) M/uL Hgb 15.2 (12.0-16.0) g/dl Hct 44.2 (37.0-47.0) % MCV 90.9 (80.0-100.0) fL MCH 31.3 (25.0-34.0) pg MCHC 34.4 (32.0-36.0) g/dL RDW Std Deviation 41.2 (36.4-46.3) fL RDW Coeff of Bj 12.5 (11.5-14.5) % Plt Count 201 (130-400) K/uL MPV 10.9 (9.4-12.4) fL Immature Gran % (Auto) 0.2 % Neut % (Auto) 61.5 % Lymph % (Auto) 25.0 % Cascade % (Auto) 12.0 % Eos % (Auto) 0.9 % Baso % (Auto) 0.4 % Neut # (Auto) 3.49 (1.40-6.50) K/uL Lymph # (Auto) 1.42 (1.2-3.4) K/uL Cascade # (Auto) 0.68 H (0.11-0.59) K/uL Eos # (Auto) 0.05 (0-0.50) K/uL Baso # (Auto) 0.02 (0-0.2) K/uL Immature Gran # (Auto) 0.01 (0.01-0.20) K/uL PT 10.9 (9.0-12.0) Seconds INR 1.0 (0.9-1.1) APTT 27.5 (21.0-31.0) Seconds PTT Ratio 1.0 Sodium 140 (136-145) mmol/L Potassium 3.6 (3.5-5.1) mmol/L Chloride 102 (98-107) mmol/L Carbon Dioxide 32 (21-32) mmol/L Anion Gap 6 (3-11) BUN 20 (6-23) mg/dl Creatinine 1.08 (0.6-1.2) mg/dl Est Cr Clr Drug Dosing Not Reportable Est GFR ( Amer) 52.7 ml/min Est GFR (Non-Af Amer) 45.5 ml/min BUN/Creatinine Ratio 18.5 (10-20) Glucose 108 H (70-99(Fasting)) mg/dl Calcium 9.6 (8.5-10.1) mg/dl Magnesium 1.3 L (1.7-2.4) mg/dl Total Bilirubin 0.5 (0.2-1.0) mg/dl AST 18 (13-39) U/L ALT 12 (7-52) U/L Alkaline Phosphatase 106 H (34-104) U/L Troponin I High Sens 36.4 H (0-14) pg/ml Total Protein 7.3 (6.0-8.3) gm/dl Albumin 4.2 (3.4-5.0) gm/dl Globulin 3.1 (2.5-4.0) gm/dl Albumin/Globulin Ratio 1.4 (0.9-2) Urine Color Urine Appearance (Clear) Urine pH (4.5-7.5) Ur Specific [place] (1.000-1.030) Urine Protein (Negative) Urine Glucose (UA) (Negative) Urine Ketones (Negative) Urine Blood (Negative) Urine Nitrite (Negative) Urine Bilirubin (Negative) Urine Urobilinogen (Negative) Ur Leukocyte Esterase (Negative) 11/09/22 Range/Units 22:54 WBC (4.8-10.8) K/ul RBC (4.20-5.40) M/uL Hgb (12.0-16.0) g/dl Hct (37.0-47.0) % MCV (80.0-100.0) fL MCH (25.0-34.0) pg MCHC (32.0-36.0) g/dL RDW Std Deviation (36.4-46.3) fL RDW Coeff of Bj (11.5-14.5) % Plt Count (130-400) K/uL MPV (9.4-12.4) fL Immature Gran % (Auto) % Neut % (Auto) % Lymph % (Auto) % Cascade % (Auto) % Eos % (Auto) % Baso % (Auto) % Neut # (Auto) (1.40-6.50) K/uL Lymph # (Auto) (1.2-3.4) K/uL Cascade # (Auto) (0.11-0.59) K/uL Eos # (Auto) (0-0.50) K/uL Baso # (Auto) (0-0.2) K/uL Immature Gran # (Auto) (0.01-0.20) K/uL PT (9.0-12.0) Seconds INR (0.9-1.1) APTT (21.0-31.0) Seconds PTT Ratio Sodium (136-145) mmol/L Potassium (3.5-5.1) mmol/L Chloride (98-107) mmol/L Carbon Dioxide (21-32) mmol/L Anion Gap (3-11) BUN (6-23) mg/dl Creatinine (0.6-1.2) mg/dl Est Cr Clr Drug Dosing Est GFR ( Amer) ml/min Est GFR (Non-Af Amer) ml/min BUN/Creatinine Ratio (10-20) Glucose (70-99(Fasting)) mg/dl Calcium (8.5-10.1) mg/dl Magnesium (1.7-2.4) mg/dl Total Bilirubin (0.2-1.0) mg/dl AST (13-39) U/L ALT (7-52) U/L Alkaline Phosphatase (34-104) U/L Troponin I High Sens (0-14) pg/ml Total Protein (6.0-8.3) gm/dl Albumin (3.4-5.0) gm/dl Globulin (2.5-4.0) gm/dl Albumin/Globulin Ratio (0.9-2) Urine Color Yellow Urine Appearance Clear (Clear) Urine pH 6.5 (4.5-7.5) Ur Specific [place] 1.009 (1.000-1.030) Urine Protein Negative (Negative) Urine Glucose (UA) Negative (Negative) Urine Ketones Negative (Negative) Urine Blood Negative (Negative) Urine Nitrite Negative (Negative) Urine Bilirubin Negative (Negative) Urine Urobilinogen Negative (Negative) Ur Leukocyte Esterase Negative (Negative) Administered Medications Albuterol (Albut/Ipratrop 3mg/0.5mg Neb 3 Ml Vial) 3 ml NEB Q4R [facility]; Protocol Stop: 12/10/22 10:59 Last Admin: 11/10/22 11:05 Dose: 3 ml Documented By: NDC Aspirin (Aspirin 81 Mg Ectab) 81 mg PO DAILY JONATHAN Stop: 12/10/22 08:59 Last Admin: 11/10/22 09:05 Dose: 81 mg Documented By: ANGEL LUIS Calcium/Vitamin D (Calcium 600mg + Vit D 400 Iu Tab) 1 tab PO DAILY JONATHAN Stop: 12/10/22 08:59 Last Admin: 11/10/22 09:05 Dose: 1 tab Documented By: ANGEL LUIS Enoxaparin Sodium (Enoxaparin Inj 30 Mg/0.3 Ml Syr) 30 mg SQ PM JONATHAN Stop: 12/10/22 00:59 Last Admin: 11/10/22 01:37 Dose: 30 mg Documented By: RH Guaifenesin (Guaifenesin 600 Mg Tabcr) 1,200 mg PO Q12 JONATHAN Stop: 12/10/22 08:59 Last Admin: 11/10/22 09:05 Dose: 1,200 mg Documented By: ANGEL LUIS Ceftriaxone Sodium 2,000 mg/ (Dextrose) 70 mls @ 100 mls/hr IV Q24H [facility]; Protocol Stop: 11/16/22 23:44 Last Infusion: 11/10/22 02:15 Dose: 0 mls/hr Documented By: Admin: 11/10/22 01:33 Dose: 100 mls/hr Documented By: AMBER Levofloxacin/Dextrose (Levaquin/D5w) 750 mg in 150 mls @ 100 mls/hr IV Q48H JONATHAN ; Protocol Stop: 11/17/22 01:59 Last Infusion: 11/10/22 03:06 Dose: 0 mls/hr Documented By: Admin: 11/10/22 01:36 Dose: 100 mls/hr Documented By: RH Methylprednisolone 40 mg/ (Syringe) 0.64 mls @ 1.5 mls/min IV Q8H JONATHAN Stop: 12/10/22 00:14 Last Admin: 11/10/22 09:04 Dose: 1.5 mls/min Documented By: ANGEL LUIS Admin: 11/10/22 01:37 Dose: 1.5 mls/min Documented By: AMBER Multivitamins/Minerals (Cerovite Adv Formula Tab) 1 tab PO DAILY JONATHAN Stop: 12/10/22 08:59 Last Admin: 11/10/22 09:05 Dose: 1 tab Documented By: ANGEL LUIS Pantoprazole Sodium (Pantoprazole 40 Mg Tab) 40 mg PO BID JONATHAN Stop: 12/09/22 23:53 Last Admin: 11/10/22 09:04 Dose: 40 mg Documented By: Admin: 11/10/22 01:42 Dose: 40 mg Documented By: RH Discontinued Medications Albuterol (Albut/Ipratrop 3mg/0.5mg Neb 3 Ml Vial) 3 ml NEB NOW STA; Protocol Stop: 11/09/22 21:20 Last Admin: 11/09/22 21:56 Dose: 3 ml Documented By: ES Benzonatate (Benzonatate 100 Mg Capsule) 100 mg PO NOW ONE Stop: 11/09/22 21:20 Last Admin: 11/09/22 21:56 Dose: 100 mg Documented By: ES Magnesium Sulfate/Dextrose (Magnesium Sulfate / D5w) 1 gm in 100 mls @ 100 mls/hr IV Q1H [facility] Stop: 11/09/22 23:20 Last Infusion: 11/09/22 22:53 Dose: 0 mls/hr Documented By: Admin: 11/09/22 22:14 Dose: 100 mls/hr Documented By: Infusion: 11/09/22 22:14 Dose: 0 mls/hr Documented By: Admin: 11/09/22 21:56 Dose: 100 mls/hr Documented By: ES Sodium Chloride (Nss 1000ml) 1,000 mls @ 100 mls/hr IV .Q10H [facility] Stop: 12/09/22 21:29 Last Infusion: 11/09/22 23:30 Dose: 0 mls/hr Documented By: Admin: 11/09/22 21:56 Dose: 100 mls/hr Documented By: ES Magnesium Sulfate/Dextrose (Magnesium Sulfate / D5w) 1 gm in 100 mls @ 50 mls/hr IV Q2H [facility] Stop: 11/10/22 02:59 Last Infusion: 11/10/22 05:10 Dose: 0 mls/hr Documented By: Admin: 11/10/22 03:05 Dose: 50 mls/hr Documented By: Infusion: 11/10/22 02:16 Dose: 0 mls/hr Documented By: Admin: 11/10/22 00:16 Dose: 50 mls/hr Documented By: RH Miscellaneous (Patient's Height & Weight Needed) 1 each N/A NOW ONE Stop: 11/10/22 00:16 Last Admin: 11/10/22 00:55 Dose: 1 each Documented By: RH Imaging Data Radiologist's Impression: Chest X-Ray 11/09/22 17:55 SINGLE VIEW CHEST CLINICAL HISTORY: Dyspnea. FINDINGS: An AP, portable, upright chest radiograph is compared to study dated 04/06/2017 and correlated with chest CT dated 02/09/2018. The heart is enlarged noting atherosclerotic calcification of the thoracic aorta. The pulmonary vasculature is noncongested. Chronic interstitial thickening is similar to previous. The lungs and pleural spaces are clear noting bibasilar scarring/atelectasis. No pneumothorax is seen. The bony thorax is grossly intact. Advanced arthritic change is seen in the shoulders. Surgical clips are noted in the right axilla. IMPRESSION: Cardiomegaly with no active disease in the chest. ACT 112: Negative or not required by law. Electronically signed by: Radhames Lujan M.D. 11/09/2022 8:39 PM Discharge Plan Visit Data Chief Complaint: Shortness of Breath/Dyspnea Stated Complaint: COUGH, SHORT OF BREATH ED Provider: Mitzi Grajeda Discharge Problem: SOB (shortness of breath), Hypomagnesemia, Elevated troponin, Generalized weakness, URI (upper respiratory infection) Patient Disposition: Admitted As Inpatient Discharge Instructions Interventions: ED Discharge Assessment Last Done: 11/09/22 23:15
--- NOTE | 2022-11-09 23:39 | History & Physical Report ---
Date of Service November 09, 2022 Assessment & Plan (1) Asthmatic bronchitis: (2) Hypomagnesemia: (3) Elevated troponin: (4) Primary hypertension: (5) Depression: (6) Gastroesophageal reflux disease: (7) Hypercholesterolemia: (8) Lumbar spinal stenosis: Plan Asthmatic bronchitis with hypoxia- Fairly severe examination Methylprednisolone 40 mg IV every 8 hours Ceftriaxone 2 g IV daily Azithromycin 5 mg IV daily Duonebs every 4 hours while awake and every 2 hours when necessary. Guaifenesin extended release 12 mg p.o. twice daily Elevated troponin- Troponin 36.4 at admission The patient will be admitted to telemetry for serial cardiac enzymes, serial EKG's, cardiac rhythm monitoring and a 2-D echocardiogram with Dopplers. Likely type II supply demand mismatch Continue aspirin 81 mg daily Hypomagnesemia- Magnesium 1.3 on admission Give magnesium sulfate 2 g IV in addition to 2 g IV given in the ED Hold losartan/HCTZ Repeat laboratories in a.m. GERD- Continue pantoprazole Hyperlipidemia- Continue atorvastatin Admission and Anticipated Discharge Date Admission Date: November 09, 2022 History of Present Illness Chief Complaint: The patient presents to the emergency department with 4 days of worsening shortness of breath, cough productive of green mucus, and decreased appetite Primary Care Provider: Kennedi Lebron MD The patient is an 87-year-old female with a past medical history including chronic low back pain, hypertension, ASCUS, adhesive capsulitis of left shoulder, depression, lumbar disc degeneration, esophageal stenosis, GERD, hearing loss, hypercholesterolemia, irritable bowel syndrome, sacroiliitis, urinary urge incontinence, osteoarthritis and peripheral edema. She was at her 's several days ago, and thinks he may have been exposed to someone who is ill. She has had 4 days of worsening cough productive of green mucus, shortness of breath, dyspnea on exertion and decreased appetite. Significant laboratories: Magnesium 1.3, troponin 36.4. COVID-19, influenza a and B, and RSV testing negative Patient did receive from the ED the following: Magnesium sulfate 2 g IV, DuoNeb, Tessalon Perles, normal saline at 100 mils per hour Allergies Allergy/AdvReac Type Severity Reaction Status Date / Time omeprazole Allergy Intermediate RASH Verified 11/09/22 23:01 adhesive Allergy Unknown RASH Verified 11/09/22 23:01 erythromycin base Allergy Unknown PER PCP Verified 11/09/22 23:01 NOTE- ?REACTION latex Allergy Unknown rash Verified 11/09/22 23:01 Penicillins Allergy Unknown RASH / Verified 11/09/22 23:01 LYMPHADENOPATHY Home Medications Medication Instructions Recorded Confirmed Type aspirin 81 mg tablet 81 mg PO DAILY 06/16/19 11/09/22 History calcium carbonate 600 mg-vitamin 1 tab PO DAILY 06/16/19 11/09/22 History D3 5 mcg (200 unit) tablet triamcinolone acetonide 0.1 % 1 appln topical BID PRN flare ups 06/16/19 11/09/22 History topical ointment psyllium seed (sugar) oral powder 1 ea PO BID 04/12/20 11/09/22 History (Metamucil (sugar) oral powder) losartan 100 1 tab PO DAILY #90 tabs 10/23/21 11/09/22 Rx mg-hydrochlorothiazide 25 mg tablet pantoprazole 40 mg tablet,delayed 40 mg PO BID #180 tabs 08/25/22 11/09/22 Rx release atorvastatin 40 mg tablet 40 mg PO QPM #90 tabs 09/22/22 11/09/22 Rx multivitamin 1 tab PO DAILY 11/09/22 11/09/22 History Past Med/Surg History Medical History (Updated 11/09/22 @ 23:49 by Hans Trevino MD) Adhesive capsulitis of shoulder Back pain with sciatica Depression Disc degeneration, lumbar Diverticulosis Dysphagia Esophageal spasm Esophageal stenosis Gastroesophageal reflux disease History of endometrial cancer History of malignant neoplasm of breast Hypercholesterolemia Hyperglycemia Hypertension Irritable bowel syndrome Joint pain in the shoulder/clavicle region Left ankle pain Lichen sclerosus et atrophicus Lumbar spinal stenosis Obesity Osteoarthritis Peripheral edema Sacroiliitis Trochanteric bursitis Ulnar nerve neuropathy Urge incontinence of urine Surgical History History of back surgery History of knee replacement History of surgery anal fistulotomy (subcutaneous) S/P cholecystectomy S/P dilation and curettage S/P lumpectomy of breast S/P thyroid surgery S/P tonsillectomy S/P total abdominal hysterectomy and bilateral salpingo-oophorectomy S/P tubal ligation Status post repair of nerve neuroplasty decompression median nerve at carpal tunnel Family History Aunt Colorectal cancer Mother Cardiac disorder Hypertension Brother Esophageal carcinoma Father Cardiac disorder Hypertension Daughter Breast cancer Denies family history of Ovarian cancer Social History (Updated 05/16/19 @ 10:36 by Felisa Nj) Smoking Status: Never smoker Hx Alcohol Use: No marital status: current occupational status: retired Feels Safe at Home: Yes Review of Systems Review of Systems: The patient denies chest pain, palpitations, lower extremity swelling, sore throat, fevers, chills, sweats, nausea, vomiting, diarrhea , constipation, abdominal pain, pelvic pain, blood in urine or stool, dysuria, urinary frequency or urgency, lightheadedness, dizziness, headache, loss of consciousness, rash, abnormal bruising or bleeding, focal weakness, numbness or tingling in arms or legs, generalized arthralgias or myalgias, neck pain, or night sweats. The review of systems is otherwise negative other than for that already noted above, and at least 10 systems have been reviewed. Physical Exam Physical Exam: The patient is awake, alert and oriented 3, well developed and well nourished, normocephalic and atraumatic, lying in bed and in mild acute respiratory distress. HEENT--PERRL, EOMI, mucous membranes and oropharynx dry. Neck--supple. No JVD. No bruits. Thyroid normal, trachea midline, no adenopathy. Heart--normal S1 and S2. No murmurs, rubs or gallops. Lungs--coarse breath sounds with wheezes bilaterally. Mild respiratory distress and intermittent accessory muscle use. Abdomen--normal bowel sounds and soft. Nontender. Nondistended, no hernias or masses, no organomegaly. Extremities--no cyanosis or clubbing. No edema. Dermatologic--normal skin turgor, normal color, no abnormal lymph nodes, no rash. Neurologic--cranial nerves II through XII grossly intact. Rheumatologic--normal range of motion. Psychiatric--normal affect. Results & Data Results & Data ([facility]) Vital Signs (Past 12 Hours) Vital Signs Temp Pulse Pulse Resp BP BP Pulse Ox 11/09/22 23:15 82 164/87 H 95 11/09/22 21:03 74 20 184/89 H 96 11/09/22 20:07 90 11/09/22 20:02 87 27 H 187/91 H 96 11/09/22 19:59 94 11/09/22 19:58 88 11/09/22 19:55 87 28 H 200/108 H 91 11/09/22 17:50 36.4 C L 95 H 16 186/84 H 97 O2 Del Method O2 Flow Rate 11/09/22 23:15 Nasal Cannula 2 11/09/22 21:03 Nasal Cannula 2 11/09/22 20:07 Room Air 0 11/09/22 20:02 Nasal Cannula 2 11/09/22 19:59 Nasal Cannula 2 11/09/22 19:58 11/09/22 19:55 Room Air 11/09/22 17:50 Room Air Laboratory Results Laboratory Results WBC 5.67 K/ul (4.8-10.8) 11/09/22 18:00 RBC 4.86 M/uL (4.20-5.40) 11/09/22 18:00 Hgb 15.2 g/dl (12.0-16.0) 11/09/22 18:00 Hct 44.2 % (37.0-47.0) 11/09/22 18:00 MCV 90.9 fL (80.0-100.0) 11/09/22 18:00 MCH 31.3 pg (25.0-34.0) 11/09/22 18:00 MCHC 34.4 g/dL (32.0-36.0) 11/09/22 18:00 RDW Std Deviation 41.2 fL (36.4-46.3) 11/09/22 18:00 RDW Coeff of Bj 12.5 % (11.5-14.5) 11/09/22 18:00 Plt Count 201 K/uL (130-400) 11/09/22 18:00 MPV 10.9 fL (9.4-12.4) 11/09/22 18:00 Immature Gran % (Auto) 0.2 % 11/09/22 18:00 Neut % (Auto) 61.5 % 11/09/22 18:00 Lymph % (Auto) 25.0 % 11/09/22 18:00 [place] % (Auto) 12.0 % 11/09/22 18:00 Eos % (Auto) 0.9 % 11/09/22 18:00 Baso % (Auto) 0.4 % 11/09/22 18:00 Neut # (Auto) 3.49 K/uL (1.40-6.50) 11/09/22 18:00 Lymph # (Auto) 1.42 K/uL (1.2-3.4) 11/09/22 18:00 [place] # (Auto) 0.68 K/uL (0.11-0.59) H 11/09/22 18:00 Eos # (Auto) 0.05 K/uL (0-0.50) 11/09/22 18:00 Baso # (Auto) 0.02 K/uL (0-0.2) 11/09/22 18:00 Immature Gran # (Auto) 0.01 K/uL (0.01-0.20) 11/09/22 18:00 PT 10.9 Seconds (9.0-12.0) 11/09/22 18:00 INR 1.0 (0.9-1.1) 11/09/22 18:00 APTT 27.5 Seconds (21.0-31.0) 11/09/22 18:00 PTT Ratio 1.0 11/09/22 18:00 Sodium 140 mmol/L (136-145) 11/09/22 18:00 Potassium 3.6 mmol/L (3.5-5.1) 11/09/22 18:00 Chloride 102 mmol/L (98-107) 11/09/22 18:00 Carbon Dioxide 32 mmol/L (21-32) 11/09/22 18:00 Anion Gap 6 (3-11) 11/09/22 18:00 BUN 20 mg/dl (6-23) 11/09/22 18:00 Creatinine 1.08 mg/dl (0.6-1.2) 11/09/22 18:00 Est Cr Clr Drug Dosing Not Reportable 11/09/22 18:00 Est GFR ( Amer) 52.7 ml/min 11/09/22 18:00 Est GFR (Non-Af Amer) 45.5 ml/min 11/09/22 18:00 BUN/Creatinine Ratio 18.5 (10-20) 11/09/22 18:00 Glucose 108 mg/dl (70-99(Fasting)) H 11/09/22 18:00 Calcium 9.6 mg/dl (8.5-10.1) 11/09/22 18:00 Magnesium 1.3 mg/dl (1.7-2.4) L 11/09/22 18:00 Total Bilirubin 0.5 mg/dl (0.2-1.0) 11/09/22 18:00 AST 18 U/L (13-39) 11/09/22 18:00 ALT 12 U/L (7-52) 11/09/22 18:00 Alkaline Phosphatase 106 U/L (34-104) H 11/09/22 18:00 Troponin I High Sens 36.4 pg/ml (0-14) H 11/09/22 18:00 Total Protein 7.3 gm/dl (6.0-8.3) 11/09/22 18:00 Albumin 4.2 gm/dl (3.4-5.0) 11/09/22 18:00 Globulin 3.1 gm/dl (2.5-4.0) 11/09/22 18:00 Albumin/Globulin Ratio 1.4 (0.9-2) 11/09/22 18:00 SARS-CoV-2 (PCR) NEGATIVE (Negative) 11/09/22 Unknown Influenza Type A (PCR) Negative (Neg) 11/09/22 Unknown Influenza Type B (PCR) Negative (Neg) 11/09/22 Unknown RSV (RT-PCR) Negative (Neg) 11/09/22 Unknown Impressions Chest X-Ray 11/09/22 17:55 SINGLE VIEW CHEST CLINICAL HISTORY: Dyspnea. FINDINGS: An AP, portable, upright chest radiograph is compared to study dated 04/06/2017 and correlated with chest CT dated 02/09/2018. The heart is enlarged noting atherosclerotic calcification of the thoracic aorta. The pulmonary vasculature is noncongested. Chronic interstitial thickening is similar to previous. The lungs and pleural spaces are clear noting bibasilar scarring/atelectasis. No pneumothorax is seen. The bony thorax is grossly intact. Advanced arthritic change is seen in the shoulders. Surgical clips are noted in the right axilla. IMPRESSION: Cardiomegaly with no active disease in the chest. ACT 112: Negative or not required by law. Electronically signed by: Radhames Lujan M.D. 11/09/2022 8:39 PM Code Status & VTE Plan Code Status Full code VTE Prophylaxis Plan VTE Prophylaxis will be ordered: Yes PG Care Time/CCT Total # of Minutes Spent Total Time Spent with Patient: Total time spent is greater than 50% in coordination of care (as documented) at patient's floor/unit and/or counseling patient: Coding Level of Care Code 83788 INT INP/OBS CARE 3/75MIN Diagnoses Asthmatic bronchitis J45.909 Hypomagnesemia E83.42 Elevated troponin R77.8 Primary hypertension I10 Depression F32.9 Gastroesophageal reflux disease K21.9 Hypercholesterolemia E78.00 Lumbar spinal stenosis M48.061
[2022-11-09] MEDS ORDERED: cefTRIAXone SODIUM 2,000 MG in DEXTROSE 5% 50 ML IV SCH (23:45)
[2022-11-09 23:54] LABS: Appearance Urine Clear (Clear); Bilirubin Urine Negative (Negative); Blood Urine Negative (Negative); Color Urine Yellow; Glucose Urine UA Negative (Negative); Ketones Urine Negative (Negative); Leukocyte Esterase Urine Negative (Negative); Nitrite Urine Negative (Negative); Protein Urine Negative (Negative); Specific Gravity Urine 1.009 (1.000-1.030); Urobilinogen Urine Negative (Negative); pH Urine 6.5 (4.5-7.5)
[2022-11-09] MEDS ORDERED: ACETAMINOPHEN 325 MG TAB PO PRN (23:54)
[2022-11-09] MEDS ORDERED: ONDANSETRON INJ 2 MG/ML 2 ML VIAL IV PRN (23:54)
[2022-11-10] MEDS ORDERED: Patient's HEIGHT & WEIGHT Needed ONE (00:15)
[2022-11-10] MEDS: MAGNESIUM SULFATE / D5W 1 GM/100 ML BAG IV SCH ×2 (00:16→03:05)
[2022-11-10] MEDS: ENOXAPARIN INJ 30 MG/0.3 ML SYR SQ SCH ×2 (01:37→21:06)
[2022-11-10] MEDS: methylPREDNISolone 40 MG in SYRINGE 0 ML IV SCH ×2 (01:37→09:04)
[2022-11-10] MEDS: PANTOprazole 40 MG TAB PO SCH ×3 (01:42→21:06)
[2022-11-10] MEDS ORDERED: levoFLOXacin/D5W 750 MG/150 ML BAG IV SCH (02:00)
[2022-11-10 07:30] LABS: BUN Creatinine Ratio 14.1 (10-20); Calcium 9.4 mg/dl (8.5-10.1); Creatinine Clr Calc Pharmacy 42.8 ml/min; Est GFR (African American) 58.6 ml/min; Est GFR (Non-African American) 50.5 ml/min; Magnesium 2.1 mg/dl (1.7-2.4); Potassium 3.7 mmol/L (3.5-5.1)
[2022-11-10 07:50] LABS: Partial Thromboplastin Time 27.3 Seconds (21.0-31.0); Prothrombin Time 10.9 Seconds (9.0-12.0)
--- NOTE | 2022-11-10 08:02 | Hospitalist Progress Note ---
Date of Service November 10, 2022 Assessment & Plan (1) Asthmatic bronchitis: (2) Hypomagnesemia: (3) Elevated troponin: (4) Primary hypertension: (5) Gastroesophageal reflux disease: (6) Hypercholesterolemia: Plan Pt is a 87 yo female with PMH of depression, GERD, HLD, HTN, IBS, and incontinence presenting to the hospital for SOB. She has no significant hx of COPD, asthma, or smoking. Bronchitis with hypoxia - no pulmonary hx, never tobacco user - COVID, RSV, influenza neg - received ceftriaxone 2g x1, levaquin 750 mg x1 - d/c ABX - continue prednisone 40 mg daily - continue duoneb q4hr scheduled, mucinex BID Elevated troponin - pt w/o chest pain - troponin 36.4 at admission, peaked at 57.9, since downtrended - EKGs show old LBBB, no ischemic changes - likely demand in the setting of respiratory distress - continue aspirin 81 mg daily Hypomagnesemia- resolved - Magnesium 1.3 on admission; repleted w/ 4 g IV - repeat Mg 2.1 - hold losartan/HCTZ GERD - continue pantoprazole Hyperlipidemia - continue atorvastatin FEN: heart healthy DVT ppx: lovenox 30 mg daily Code status: full Dispo: PCU/tele, plan for d/c tomorrow if pt off oxygen and feeling well Admission and Anticipated Discharge Date Admission Date: November 09, 2022 Subjective Pt is a 87 yo female with PMH of depression, GERD, HLD, HTN, IBS, and incontinence presenting to the hospital for SOB. She has no significant hx of COPD, asthma, or smoking. Pt states that her 's was about 1 week ago and there were "a lot of people there." She feels as though she caught something from someone there. Pt's breathing much improved this AM. Overall, she is feeling better. Denies chest pain, increased SOB, or leg pains. Review of Systems Review of Systems: All systems reviewed & are unremarkable except as noted in HPI & below Physical Exam Constitutional: NAD. Vitals WNL. Satting well on 3L NC. Eyes: no conjunctival abnormality Respiratory: Mild expiratory wheezing heard throughout upper lobes. No crackles or rhonchi. Non labored breathing. Cardiovascular: RRR. No murmur noted. No LE edema. Skin: no rashes, warm and dry Psychiatric: Alert. Mood and affect congruent. Results & Data Results & Data ([facility]) Vital Signs (Past 12 Hours) Vital Signs Temp Pulse Pulse Pulse Resp BP BP 11/10/22 03:28 36.7 C 69 18 162/86 H 11/09/22 23:37 84 11/09/22 23:30 11/09/22 23:30 36.5 C 84 18 165/81 H 11/09/22 23:15 82 164/87 H 11/09/22 21:03 74 20 184/89 H 11/09/22 20:07 11/09/22 20:02 87 27 H 187/91 H Pulse Ox O2 Del Method O2 Flow Rate 11/10/22 03:28 94 Nasal Cannula 3.0 11/09/22 23:37 11/09/22 23:30 Nasal Cannula 3 11/09/22 23:30 95 Nasal Cannula 3 11/09/22 23:15 95 Nasal Cannula 2 11/09/22 21:03 96 Nasal Cannula 2 11/09/22 20:07 90 Room Air 0 11/09/22 20:02 96 Nasal Cannula 2 Resident Activity Tracking Resident Involvement: Resident Care Provided Care Provided: Adult Hospital Medicine
[2022-11-10 08:15] LABS: Troponin I High Sensitivity 57.9 pg/ml (0-14)
[2022-11-10] MEDS: CEROVITE ADV FORMULA TAB PO SCH (09:05)
[2022-11-10] MEDS: guaiFENesin 600 MG TABCR PO SCH ×2 (09:05→21:06)
[2022-11-10] MEDS: CALCIUM 600MG + VIT D 400 IU TAB PO SCH (09:05)
[2022-11-10] MEDS: ASPIRIN 81 MG ECTAB PO SCH (09:05)
[2022-11-10] MEDS: ALBUT/IPRATROP 3MG/0.5MG NEB 3 ML VIAL NEB SCH ×4 (11:05→22:11)
--- NOTE | 2022-11-10 19:16 | Billing Data ---
Date of Service November 10, 2022 Coding Level of Care Code 69338 SUB INP/OBS CARE 3MIN
[2022-11-10] MEDS ORDERED: ATORVASTATIN 40 MG TAB PO SCH (21:00)
--- NOTE | 2022-11-10 22:59 | XCELERA ---
[id number]
[2022-11-11] MEDS: ALBUT/IPRATROP 3MG/0.5MG NEB 3 ML VIAL NEB SCH ×3 (02:21→10:46)
--- NOTE | 2022-11-11 04:35 | Electrocardiogram Report ---
Test Reason : Blood Pressure : / mmHG Vent. Rate : 089 BPM Atrial Rate : 089 BPM P-R Int : 146 ms QRS Dur : 144 ms QT Int : 402 ms P-R-T Axes : 031 002 112 degrees QTc Int : 489 ms Poor data quality, interpretation may be adversely affected Normal sinus rhythm Possible Left atrial enlargement Left bundle branch block Abnormal ECG When compared with ECG of 12-FEB-2018 17:36, Vent. rate has increased BY 29 BPM Confirmed by Marcelo Lockhart ([id number]) on 11/11/2022 4:35:03 AM Referred By: REFERRED SELF Confirmed By:Marcelo Lockhart
--- NOTE | 2022-11-11 04:55 | Electrocardiogram Report ---
Test Reason : Blood Pressure : / mmHG Vent. Rate : 074 BPM Atrial Rate : 074 BPM P-R Int : 162 ms QRS Dur : 150 ms QT Int : 446 ms P-R-T Axes : 033 -01 149 degrees QTc Int : 495 ms Normal sinus rhythm Left bundle branch block Abnormal ECG When compared with ECG of 09-NOV-2022 18:00, No significant change Confirmed by Marcelo Lockhart ([id number]) on 11/11/2022 4:55:20 AM Referred By: REFERRED SELF Confirmed By:Marcelo Lockhart
[2022-11-11 06:23] LABS: Hematocrit (blood only) 39.4 % (37.0-47.0); Hemoglobin 13.2 g/dl (12.0-16.0); Mean Corpuscular Hemoglobin 30.6 pg (25.0-34.0); Mean Corpuscular Hgb Conc 33.5 g/dL (32.0-36.0); Mean Corpuscular Volume 91.2 fL (80.0-100.0); Mean Platelet Volume 10.9 fL (9.4-12.4); Platelet Count 175 K/uL (130-400); RDW Coefficient of Variation 12.3 % (11.5-14.5); RDW Standard Deviation 41.2 fL (36.4-46.3); Red Blood Count 4.32 M/uL (4.20-5.40); White Blood Count 5.91 K/ul (4.8-10.8)
--- NOTE | 2022-11-11 07:22 | Discharge Summary ---
Date of Service November 11, 2022 Admission HPI Per Admitting Provider The patient is an 87-year-old female with a past medical history including chronic low back pain, hypertension, ASCUS, adhesive capsulitis of left shoulder, depression, lumbar disc degeneration, esophageal stenosis, GERD, hearing loss, hypercholesterolemia, irritable bowel syndrome, sacroiliitis, urinary urge incontinence, osteoarthritis and peripheral edema. She was at her 's several days ago, and thinks he may have been exposed to someone who is ill. She has had 4 days of worsening cough productive of green mucus, shortness of breath, dyspnea on exertion and decreased appetite. Significant laboratories: Magnesium 1.3, troponin 36.4. COVID-19, influenza a and B, and RSV testing negative Patient did receive from the ED the following: Magnesium sulfate 2 g IV, DuoNeb, Tessalon Perles, normal saline at 100 mils per hour Admission Exam Per Admitting Provider The patient is awake, alert and oriented 3, well developed and well nourished, normocephalic and atraumatic, lying in bed and in mild acute respiratory distress. HEENT--PERRL, EOMI, mucous membranes and oropharynx dry. Neck--supple. No JVD. No bruits. Thyroid normal, trachea midline, no adenopathy. Heart--normal S1 and S2. No murmurs, rubs or gallops. Lungs--coarse breath sounds with wheezes bilaterally. Mild respiratory distress and intermittent accessory muscle use. Abdomen--normal bowel sounds and soft. Nontender. Nondistended, no hernias or masses, no organomegaly. Extremities--no cyanosis or clubbing. No edema. Dermatologic--normal skin turgor, normal color, no abnormal lymph nodes, no rash. Neurologic--cranial nerves II through XII grossly intact. Rheumatologic--normal range of motion. Psychiatric--normal affect. Principal Diagnosis bronchitis w/ hypoxia Discharge Exam Constitutional NAD. Vitals WNL. No O2 requirement. Eyes no conjunctival abnormality. Neck trachea midline. Respiratory Expiratory wheezing heard bilaterally. Non labored breathing. Cardiovascular RRR. No murmur noted. No LE edema. Skin no rashes, warm and dry Psychiatric Alert. Mood and affect congruent. Discharge Data Allergies Allergy/AdvReac Type Severity Reaction Status Date / Time omeprazole Allergy Intermediate RASH Verified 11/09/22 23:01 adhesive Allergy Unknown RASH Verified 11/09/22 23:01 erythromycin base Allergy Unknown PER PCP Verified 11/09/22 23:01 NOTE- ?REACTION latex Allergy Unknown rash Verified 11/09/22 23:01 Penicillins Allergy Unknown RASH / Verified 11/09/22 23:01 LYMPHADENOPATHY Consultations 11/09/22 21:59 ED Decision to Admit Stat Ordered Studies Chest X-Ray 11/09/22 17:55 SINGLE VIEW CHEST CLINICAL HISTORY: Dyspnea. FINDINGS: An AP, portable, upright chest radiograph is compared to study dated 04/06/2017 and correlated with chest CT dated 02/09/2018. The heart is enlarged noting atherosclerotic calcification of the thoracic aorta. The pulmonary vasculature is noncongested. Chronic interstitial thickening is similar to previous. The lungs and pleural spaces are clear noting bibasilar scarring/atelectasis. No pneumothorax is seen. The bony thorax is grossly in tact. Advanced arthritic change is seen in the shoulders. Surgical clips are noted in the right axilla. IMPRESSION: Cardiomegaly with no active disease in the chest. ACT 112: Negative or not required by law. Electronically signed by: Radhames Lujan M.D. 11/09/2022 8:39 PM Hospital Course (1) Asthmatic bronchitis: (2) Hypomagnesemia: (3) Elevated troponin: (4) Primary hypertension: (5) Gastroesophageal reflux disease: (6) Hypercholesterolemia: Plan Pt is a 87 yo female with PMH of depression, GERD, HLD, HTN, IBS, and incontinence presenting to the hospital for SOB. She has no significant hx of COPD, asthma, or smoking. Bronchitis with hypoxia - no pulmonary hx, never tobacco user - COVID, RSV, influenza neg - CXR neg - received ceftriaxone 2g x1, levaquin 750 mg x1; then ABX were discontinued - continue prednisone 40 mg daily x3 upon discharge - sent albuterol inhaler to use PRN at home until resolution of bronchitis - pt sent home w/ 2L oxygen to use when ambulating; expect that she will only need this temporarily Elevated troponin - pt w/o chest pain - troponin 36.4 at admission, peaked at 57.9, since downtrended - EKGs showed old LBBB, no ischemic changes - echo similar to 2018; EF 50-55%, normal RVSP - likely demand in the setting of respiratory distress - continue aspirin 81 mg daily Hypomagnesemia- resolved - Magnesium 1.3 on admission; repleted w/ 4 g IV - repeat Mg 2.1 - resume losartan/HCTZ upon discharge GERD - continue pantoprazole Hyperlipidemia - continue atorvastatin FEN: heart healthy DVT ppx: lovenox 30 mg daily Code status: full Dispo: home Total Time Total Time Spent Total Time Spent (In Minutes): as per attending attestation Discharge Plan Discharge Items Patient Disposition: Home - Self-Care Reason For Visit: HYPOMAGNESEMIA, ACUTE RESP FAILURE WITH HYPOXIA, Discharge Diagnosis: Bronchitis Activity: Per Instructions section Non-emergency contact: Primary Care Provider Call non-emergency contact if: you have any medication questions and your symptoms worsen Follow-up/Referrals: Kennedi Lebron MD [Primary Care Provider] - 11/20/22 3:00 pm (Will see Elver PINEDO) Diet: Heart Healthy Addtl Attending Provider Instructions: You were admitted to [facility] due to shortness of breath and coughing. As you do not have any chronic lung issues, it is likely that your symptoms were related to bronchitis, which developed after a viral infection. None of your chest imaging or testing was consistent with pneumonia and thus, you will not require antibiotics at discharge. You will be sent home with prednisone 40 mg for 3 days to continue to improve the inflammation in your lungs. Additionally you will be sent home with an albuterol inhaler, which you should use as needed up to every 4 hours if having shortness of breath. You are also being sent home with supplemental oxygen. You are to wear this when you are up and walking around. It is expected that you will need this for a week or two following discharge- not indefinitely. You may want to invest in a pulse oximeter to measure your oxygen at home to know when you can stop using the oxygen. Please follow up with your Primary Care Provider for continued care after your hospitalization. If you develop any new or worsening symptoms that are concerning to you please call your PCP or return to the hospital for reevaluation. Pending Studies at Discharge: No Stand-Alone Forms: My [facility], Smoking Cessation Medications and DC Order Prescriptions: New albuterol sulfate 90 mcg/actuation aerosol powdr breath activated 2 inh inhalation Q4H PRN (Reason: shortness of breath or wheezing) Qty: 1 1RF prednisone 20 mg tablet 40 mg PO DAILY 3 Days Qty: 6 0RF Continued pantoprazole 40 mg tablet,delayed release (DR/EC) 40 mg PO BID Qty: 180 3RF atorvastatin 40 mg tablet 40 mg PO QPM Qty: 90 3RF losartan-hydrochlorothiazide 100-25 mg tablet 1 tab PO DAILY Qty: 90 3RF aspirin 81 mg tablet 81 mg PO DAILY calcium carbonate-vitamin D3 600 mg(1,500mg) -200 unit tablet 1 tab PO DAILY triamcinolone acetonide 0.1 % ointment 1 appln topical BID PRN (Reason: flare ups) Metamucil (sugar) Powder 1 ea PO BID multivitamin Tablet 1 tab PO DAILY Discharge Orders: Discharge Order (Routine); Ordered 11/11/22 Ordered By: Luba Dunham Admission Data Admit Date/Time: 11/09/22 22:57 Attending Provider: Devon Mariano Admit Provider: Hans Trevino Primary Care Provider: Kennedi Lebron Other Providers: Hans Trevino Other Interventions: Discharge Summary Assessment (RN) Last Done: 11/11/22 13:31 Supervising Physician Co-Signing Physician Notes I personally examined the patient and verified all genao points of history and exam, discussed case, and agree with decision making with Dr Dunham Feeling better. On room air. Does have some degree of dyspnea on exertion still, recovers with rest. vitals noted nad heent nc at mmm breathing unlabored no accessory muscle use good effort. Whenever we walked together, she walks extremely quickly with her walker, but does get a bit dyspneic. Her pulse ox is a little bit unreliable with the tracing, but does show frequent readings in the mid to high 80s on room air with ambulation, and then whenever she is resting it recovers to the low 90s. This is later corroborated with a two-step. bronchitis w hypoxia - prednisone, supportive care, time, safe/stable for home - but will need 2L w exertion for a little while (discussed risks/benefits of home O2 vs staying to continue to wait on oxygenation improvement -- pt/dtr both opted for home) mild demand ischemia - due to above, echo reassuring (unchanged from ~5 years ago) stable/safe for home on 2L w exertion, outpt PCP f/u Resident Activity Tracking Resident Involvement: Resident Care Provided Care Provided: Adult Hospital Medicine
[2022-11-11 07:51] LABS: BUN Creatinine Ratio 18.9 (10-20); Calcium 9.3 mg/dl (8.5-10.1); Creatinine Clr Calc Pharmacy 39.9 ml/min; Est GFR (African American) 53.9 ml/min; Est GFR (Non-African American) 46.5 ml/min; Potassium 4.1 mmol/L (3.5-5.1)
[2022-11-11] MEDS: CEROVITE ADV FORMULA TAB PO SCH (08:18)
[2022-11-11] MEDS: PANTOprazole 40 MG TAB PO SCH (08:18)
[2022-11-11] MEDS: CALCIUM 600MG + VIT D 400 IU TAB PO SCH (08:18)
[2022-11-11] MEDS: ASPIRIN 81 MG ECTAB PO SCH (08:18)
[2022-11-11] MEDS: guaiFENesin 600 MG TABCR PO SCH (08:18)
[2022-11-11] MEDS ORDERED: predniSONE 20 MG TAB PO SCH (09:00)
--- NOTE | 2022-11-11 17:51 | Billing Data ---
Date of Service November 11, 2022 Coding Level of Care Code HOSP INP/OBS DISCH 30 MIN/LESS
--- NOTE | 2022-11-11 22:19 | Electrocardiogram Report ---
Test Reason : Blood Pressure : / mmHG Vent. Rate : 074 BPM Atrial Rate : 074 BPM P-R Int : 168 ms QRS Dur : 154 ms QT Int : 460 ms P-R-T Axes : 061 021 139 degrees QTc Int : 510 ms Sinus rhythm with occasional Premature ventricular complexes and Premature atrial complexes Left bundle branch block Abnormal ECG When compared with ECG of 10-NOV-2022 05:42, Premature ventricular complexes are now Present Premature atrial complexes are now Present Confirmed by Marcelo Lockhart ([id number]) on 11/11/2022 10:19:38 PM Referred By: REFERRED SELF Confirmed By:Marcelo Lockhart
== END 2022-11-11 14:09 | disposition home or self-care (01) | DRG 202 ==
LOC: ED 17:41 → 2S 22:57 → SUATTDRO 22:57 → 2S 23:15